=== PATIENT | male | born 1985 | race Caucasian/White ===

== ENCOUNTER 2017-05-06 11:58 | Emergency (ER) | payer BC, SELFPAY ==
[2017-05-06 11:59] VITALS: BP 150/89; PULSE 108; RESP 18; TEMP 37; O2SAT 95; BMI 32.1
--- NOTE | 2017-05-06 12:18 | XR_ITS ---
XR chest 2V Ordering Physician: Yolis Dominguez Patient Age: 31 years: Male HISTORY: ITS.REASON: COUGH congestion with no significant findings. Small calcified right hilar node COMPARISON :October 06, 2007 and more recent May 11, 2015 chest x-ray. FINDINGS No acute findings. No pneumonia. No pneumothorax. No pleural effusion. Again see the generous left merle with calcified nodes at the left infrahilar region accounting for the fullness here. This is long-standing and is been seen back to 2007. With this there is also a calcified granuloma projected over the anterior fifth rib. This is stable benign feature as well. . (& Also seen on CT abdomen from February 2017) Heart & mediastinal structures stable and unremarkable. The right merle is stable. Right lung clear Old left clavicular fracture. Ribs T-spine stable. Unremarkable. IMPRESSION: Stable chest. Nothing definitely acute. No pneumonia evident . Prominent left merle again noted and stable. Reflects old calcified granulomatous lymph nodes.. Associated stable calcified granuloma towards left lung base.
--- NOTE | 2017-05-06 12:18 | HMH.EDUTC ---
[facility] [place] Clinical Impression: Upper respiratory infection Disposition: Home, Self-Care Condition on Discharge: Good Instructions: Sinusitis, Sinus Headache, DI for Sinusitis Additional Instructions: Start antibiotic. Sinus infections may take 2-3 days to notice much improvement so be sure to use conservative measures as discussed for symptoms Flonase 2 spray in each nostril daily to help with nasal congestion, sinus an ear pressure/inflammation Lots of Fluids Sleep elevated Humidifer/vaporizer Prescriptions: Clarithromycin [Biaxin 500mg Tablet] 500 mg PO Q12H #14 tab predniSONE [Prednisone 20mg Tab] 20 mg PO BID #10 tab Promethazine/Dextromethorphan [Promethazine-Dm Syrup] 5 ml PO Q4H PRN #200 syrup PRN Reason: Cough Referrals: Neo David APRN [Primary Care Provider] - Forms: Work/School Release Time of Disposition: 13:08 Medical Decision Making - Medical Records Medical records reviewed: Yes: I reviewed the patient's medical records. Vital Signs: 05/06/17 11:59 Temperature 98.6 F Temperature Source Oral Pulse Rate [Left Brachial] 108 H Respiratory Rate 18 Blood Pressure [Right Arm] 150/89 Blood Pressure Mean [Right Arm] 109 Blood Pressure Source [Right Arm] Automatic Cuff Blood Pressure Position [Right Arm] Sitting 02 Sat by Pulse Oximetry 95 Oxygen Delivery Method Room Air - Lab Data Lab Results 05/06/17 12:18: Influenza Type A Ag Negative, Influenza Type B Ag Negative, Strep Scn Rapid Clinic Negative Orders (Tests/Meds): ED MEDICATIONS Discontinued Medications Generic Name Dose Route Start Last Admin Trade Name Freq PRN Reason Stop Dose Admin Methylprednisolone Sodium Succinate 125 mg 05/06/17 12:45 05/06/17 12:45 Solu-Medrol 125mg/2ml Vial IM 05/06/17 12:46 125 mg ONCE ONE Administration ORDERS Category Date Time Status XR chest 2V Stat Exams 05/06/17 12:18 Taken Strep Screen Confirmation Stat Micro 05/06/17 12:18 Received - Radiology Data #1 Image(s): Chest Image Reviewed: Yes I reviewed the patient's radiology image w/the ED provider Preliminary Findings: No Infiltrates Seen (Old granulomas noted no acute findings) - David Inquiry Pt receiving controlled substance: No David was queried for this patient: No [facility] [place] HPI - General Stated complaint: head cold Mode of Arrival: Ambulatory Source of Information: Patient Limitations: No Limitations Description of Symptoms (Recalled from Triage Doc. by RN): PT C/O PRODUCTIVE COUGH, SORE THROAT, FEVER HEENT Symptoms (Recalled from RN notes): No Resp Symptoms (Recalled from RN notes): Yes (PRODUCTIVE COUGH) Skin Symptoms (Recalled from RN notes): No MS Symptoms (Recalled from RN notes): No Functional Status (Recalled from RN notes): NA - History of Present Illness Provider Complaint: Patient state that he has been having sinus pain and pressure, cough, drainage, head and chest congestion States that he has been sick for over a week now and has not got any better. States that when he lays down he can feel drainage running down the back of his neck States that he doesn't think he has had a fever but not sure. State that over all he just does not feel well - Related Data Previous Rx's Medication Instructions Recorded Clarithromycin [Biaxin 500mg 500 mg PO Q12H #14 tab 05/06/17 Tablet] Promethazine/Dextromethorphan 5 ml PO Q4H PRN #200 syrup 05/06/17 [Promethazine-Dm Syrup] predniSONE [Prednisone 20mg 20 mg PO BID #10 tab 05/06/17 Tab] Allergies Allergy/AdvReac Type Severity Reaction Status Date / Time penicillin G [PENICILLIN G] Allergy Mild Verified 05/06/17 12:17 Sulfa (Sulfonamide Allergy Mild Verified 05/06/17 12:16 Antibiotics) [SULFA (SULFONAMIDE ANTIBIOTICS)] - Worker's Comp Is this a Worker's Comp case?: No [facility] History I have reviewed the patient's past medical history: Yes Medical History: Denies:: Cancer, Diabetes
--- NOTE | 2017-05-06 12:21 | ED_ITS ---
[facility] – [place] Disposition Clinical Impression: Upper respiratory infection Disposition: Home, Self-Care Condition on Discharge: Good Instructions: Sinusitis, Sinus Headache, DI for Sinusitis Additional Instructions: Start antibiotic. Sinus infections may take 2-3 days to notice much improvement so be sure to use conservative measures as discussed for symptoms Flonase 2 spray in each nostril daily to help with nasal congestion, sinus an ear pressure/inflammation Lots of Fluids Sleep elevated Humidifer/vaporizer Prescriptions: Clarithromycin [Biaxin 500mg Tablet] 500 mg PO Q12H #14 tab predniSONE [Prednisone 20mg Tab] 20 mg PO BID #10 tab Promethazine/Dextromethorphan [Promethazine-Dm Syrup] 5 ml PO Q4H PRN #200 syrup PRN Reason: Cough Referrals: Neo David APRN [Primary Care Provider] - Forms: Work/School Release Time of Disposition: 13:08 Medical Decision Making - Medical Records Medical records reviewed: Yes: I reviewed the patient's medical records. Vital Signs: 05/06/17 11:59 Temperature 98.6 F Temperature Source Oral Pulse Rate [Left Brachial] 108 H Respiratory Rate 18 Blood Pressure [Right Arm] 150/89 Blood Pressure Mean [Right Arm] 109 Blood Pressure Source [Right Arm] Automatic Cuff Blood Pressure Position [Right Arm] Sitting 02 Sat by Pulse Oximetry 95 Oxygen Delivery Method Room Air - Lab Data Lab Results 05/06/17 12:18: Influenza Type A Ag Negative, Influenza Type B Ag Negative, Strep Scn Rapid Clinic Negative Orders (Tests/Meds): ED MEDICATIONS Discontinued Medications Generic Name Dose Route Start Last Admin Trade Name Freq PRN Reason Stop Dose Admin Methylprednisolone Sodium Succinate 125 mg 05/06/17 12:45 05/06/17 12:45 Solu-Medrol 125mg/2ml Vial IM 05/06/17 12:46 125 mg ONCE ONE Administration ORDERS Category Date Time Status XR chest 2V Stat Exams 05/06/17 12:18 Taken Strep Screen Confirmation Stat Micro 05/06/17 12:18 Received - Radiology Data #1 Image(s): Chest Image Reviewed: Yes I reviewed the patient's radiology image w/the ED provider Preliminary Findings: No Infiltrates Seen (Old granulomas noted no acute findings) - David Inquiry Pt receiving controlled substance: No David was queried for this patient: No [facility] [place] HPI - General Stated complaint: head cold Mode of Arrival: Ambulatory Source of Information: Patient Limitations: No Limitations Description of Symptoms (Recalled from Triage Doc. by RN): PT C/O PRODUCTIVE COUGH, SORE THROAT, FEVER HEENT Symptoms (Recalled from RN notes): No Resp Symptoms (Recalled from RN notes): Yes (PRODUCTIVE COUGH) Skin Symptoms (Recalled from RN notes): No MS Symptoms (Recalled from RN notes): No Functional Status (Recalled from RN notes): NA - History of Present Illness Provider Complaint: Patient state that he has been having sinus pain and pressure, cough, drainage, head and chest congestion States that he has been sick for over a week now and has not got any better. States that when he lays down he can feel drainage running down the back of his neck States that he doesn 't think he has had a fever but not sure. State that over all he just does not feel well - Related Data Previous Rx's Medication Instructions Recorded Clarithromycin [Biaxin 50
[2017-05-06 12:32] LABS: UTC Influenza A Antigen Negative (Negative); UTC Influenza B Antigen Negative (Negative); UTC Strep Screen (Rapid) Negative (Negative)
[2017-05-06 13:29] VITALS: BP 150/78; PULSE 98; RESP 20; TEMP 36.9; O2SAT 98
== END 2017-05-06 13:31 | disposition home or self-care (01) ==
PROVIDERS: Emergency Provider Nurse Practitioner; Family Provider Emergency Medicine; PCP Nurse Practitioner Family
DX: J06.9 Acute upper respiratory infection, unspecified (principal); F17.210 Nicotine dependence, cigarettes, uncomplicated; Z88.0 Allergy status to penicillin; Z88.2 Allergy status to sulfonamides
CPT/HCPCS: 71046; 87804; 87880; 96372; 99202

== ENCOUNTER → 2017-10-17 14:51 | Outpatient (REF) | payer BC, SELFPAY ==
[2017-10-17 18:42] LABS: Amphetamine/Metha Screen,Urine Negative ng/mL (<1000); Barbiturates Screen,Urine Negative ng/mL (<200); Benzodiazepines Screen,Urine Negative ng/mL (<200); Cannabinoid Screen,Urine Negative ng/mL (<50); Cocaine Screen,Urine Negative ng/mL (<300); Methadone Screen,Urine Negative ng/mL (<300); Opiate Screen,Urine Negative ng/mL (<300); Phencyclidine Screen,Urine Negative ng/mL (<25)
== END ==
LOC: LAB 14:51
PROVIDERS: Visit Provider Nurse Practitioner Family
DX: F90.2 Attention-deficit hyperactivity disorder, combined type (principal)
CPT/HCPCS: 80305

== ENCOUNTER → 2018-03-12 16:40 | Outpatient (CLI) | payer BC, SELFPAY | PROVIDERS: PCP Nurse Practitioner Family; Visit Provider Nurse Practitioner Family | DX: R06.83 Snoring (principal) | CPT/HCPCS: 95806 ==

== ENCOUNTER → 2018-09-27 15:10 | Outpatient (CLI) | payer BC, SELFPAY ==
--- NOTE | 2018-09-27 15:15 | XR_ITS ---
EXAM: XR thoracic spine 3V HISTORY: Back pain ITS.REASON: pain Comparison: None FINDINGS: Normal alignment. No fracture or dislocation. No lytic or blastic change. No significant degenerative change. The disc spaces are preserved. Minimal upper thoracic curvature convex left IMPRESSION: No acute finding Minimal upper thoracic curvature convex left
--- NOTE | 2018-09-27 15:15 | XR_ITS ---
EXAM: XR cervical spine 3V HISTORY: Neck pain ITS.REASON: pain ORDERING PHYSICIAN: Chantal Delgado APRN PATIENT AGE: 33 years COMPARISON: None FINDINGS: Normal alignment. No fracture or dislocation. No lytic or blastic change. No significant degenerative change. The disc spaces are preserved. No foraminal narrowing. No cervical ribs or prevertebral soft tissue swelling. IMPRESSION: Negative cervical spine
== END ==
PROVIDERS: PCP Nurse Practitioner Family; Visit Provider Nurse Practitioner Family
DX: M54.2 Cervicalgia (principal); M54.6 Pain in thoracic spine
CPT/HCPCS: 72040; 72072

== ENCOUNTER → 2018-09-29 06:47 | Outpatient (CLI) | payer BC, SELFPAY ==
[2018-09-29 07:32] LABS: Alanine Aminotransferase 50 U/L (12-78); Albumin Level 3.8 gm/dL (3.4-5.0); Alkaline Phosphatase 139 U/L (46-116); Anion Gap 12.6 mEq/L (5-15); Aspartate Amino Transferase 18 U/L (15-37); Blood Urea Nitrogen 12 mg/dL (7-18); C-Reactive Protein < 0.2 mg/L (0.0-0.9); Calcium 8.8 mg/dL (8.5-10.1); Carbon Dioxide 30 mmol/L (21.0-32.0); Chloride 103 mmol/L (98-107); Chol/HDL Ratio 5.7 (1-3.5); Cholesterol 176 mg/dL (140-200); Creatinine,Serum 1.07 mg/dL (0.70-1.30); Estimated Glomerular Filt Rate 79 ml/min (>60); GFR (African American) 96 ML/MIN (>60); Globulin 3.8 gm/dl (1.3-3.2); Glucose 95 mg/dL (74-106); HDL Cholesterol 31 mg/dL (27-67); LDL Cholesterol 112 mg/dL (0-130); Potassium 3.6 mmoL/L (3.5-5.1); Sodium 142 mmol/L (136-145); Total Protein,Serum 7.6 gm/dL (6.4-8.2); Triglycerides 166 mg/dL (30-200); VLDL Cholesterol 33 mg/dL (0-40)
[2018-09-29 07:43] LABS: Erythrocyte Sedimentation Rate 3 mm/hr (0-15)
[2018-10-01 03:15] LABS: RA Latex Turbid. <10.0 IU/mL (0.0-13.9)
[2018-10-01 14:10] LABS: Anti-Centromere B Antibodies <0.2 AI (0.0-0.9); Anti-Jo-1 <0.2 AI (0.0-0.9); Anti-Smith Antibody <0.2 AI (0.0-0.9); Antichromatin Antibodies 0.2 AI (0.0-0.9); Antiscleroderma-70 Antibodies <0.2 AI (0.0-0.9); RNP Antibodies 0.2 AI (0.0-0.9); Sjogren's Anti-SS-A <0.2 AI (0.0-0.9); Sjogren's Anti-SS-B 2.3 AI (0.0-0.9)
[2018-10-03 06:23] LABS: Anti-Cyclic Citrullinated Pept 5 units (0-19); Anti-DNA (DS) Ab Qn <1 IU/mL (0-9)
== END ==
PROVIDERS: PCP Nurse Practitioner Family; Visit Provider Nurse Practitioner Family
DX: R53.83 Other fatigue (principal); M25.50 Pain in unspecified joint
CPT/HCPCS: 80053; 80061; 85651; 86140; 86200; 86225; 86235; 86431

== ENCOUNTER → 2020-02-27 18:34 | Outpatient (CLI) | payer BC, SELFPAY ==
[2020-02-27 20:01] LABS: Basophils # 0.1 K/mm3 (0-0.2); Basophils % 0.8 % (0.1-2.0); Eosinophils # 0.4 K/mm3 (0.0-0.4); Eosinophils % 3.9 % (0.1-12.0); Lymphocytes # 3.3 K/mm3 (0.7-4.5); Lymphocytes % 29.3 % (10-50); Mean Corpuscular HGB Conc 32.8 g/dL (31.8-35.4); Mean Corpuscular Hemoglobin 32.1 pg (27.0-31.2); Mean Platelet Volume 9.8 fl (7.4-10.4); Monocytes # 0.7 K/mm3 (0.1-1.0); Monocytes % 6.3 % (1.7-9.3); Neutrophils # 6.8 K/mm3 (1.8-7.8); Neutrophils % 59.8 % (37.0-80.0); Platelet Count 348 K/mm3 (142-424); Red Blood Count 5.66 M/mm3 (4.60-6.20); Red Cell Distribution Width 13.5 % (11.5-17.5); White Blood Count 11.3 K/mm3 (4.8-10.8)
[2020-02-27 20:03] LABS: Hematocrit 55.4 % (42.0-52.0); Hemoglobin 18.2 g/dL (14.1-18.0)
[2020-02-27 20:07] LABS: Alanine Aminotransferase 42 U/L (12-78); Albumin Level 4.5 g/dl (3.5-5.0); Albumin/Globulin Ratio 1.5 (1.1-1.8); Alkaline Phosphatase 149 U/L (38-126); Anion Gap 14.5 mEq/L (5-15); Aspartate Amino Transferase 36 U/L (17-59); Bilirubin,Total 1.1 mg/dl (0.2-1.3); Blood Urea Nitrogen 15 mg/dl (9-20); Calcium 9.9 mg/dl (8.4-10.2); Carbon Dioxide 28 mmol/L (22.0-30.0); Chloride 102 mmol/L (98-107); Chol/HDL Ratio 5.5 (1-3.5); Cholesterol 192 mg/dl (140-200); Estimated Glomerular Filt Rate 85 ml/min (>60); GFR (African American) 103 ML/MIN (>60); Globulin 3.1 g/dL (1.3-3.2); Glucose 96 mg/dl (74-100); HDL Cholesterol 35 mg/dl (40-60); Potassium 4.5 mmoL/L (3.5-5.1); Sodium 140 mmol/L (136-145); Total Protein,Serum 7.6 g/dl (6.3-8.2); Triglycerides 182 mg/dl (30-150); VLDL Cholesterol 36 mg/dL (0-40)
[2020-02-27 20:18] LABS: Direct LDL Cholesterol 134.75 mg/dL (100-129)
[2020-02-27 20:25] LABS: Free T4 (Free Thyroxine) 1.17 ng/dl (0.78-2.19)
[2020-02-27 20:39] LABS: Thyroid Stimulating Hormone 1.19 uIU/mL (0.465-4.68)
[2020-03-07 21:48] LABS: 1,25 Dihydroxy Vitamin D 64 pg/mL (.); 1,25-Dihydroxy, Vitamin D-2 <10 pg/mL (.); 1,25-Dihydroxy, Vitamin D-3 62 pg/mL (.)
== END ==
PROVIDERS: Visit Provider Emergency Medicine
DX: R53.83 Other fatigue (principal); R07.89 Other chest pain; Z79.899 Other long term (current) drug therapy; D58.2 Other hemoglobinopathies
CPT/HCPCS: 80053; 80061; 82652; 84439; 84443; 85025

== ENCOUNTER 2020-04-20 12:29 | Emergency (ER) | payer BC, SELFPAY ==
[2020-04-20 12:29] VITALS: BP 121/78; PULSE 87; RESP 16; TEMP 37.1; O2SAT 98; BMI 32.7
[2020-04-20 12:59] VITALS: BP 153/78; PULSE 76; RESP 20; O2SAT 98
--- NOTE | 2020-04-20 13:00 | CT_ITS ---
PROCEDURE: CT CHEST W CON CLINCAL INDICATION: right side pain Right-sided rib pain, chest pain COMPARISON: CT CT ABDOMEN PELVIS W CON from 04/20/2020 TECHNIQUE: IV Contrast: 75ml Isovue 370 Axial images obtained with sagittal and coronal reformats. All CT scans at the facility use one or more dose reduction, viz: automated exposure control, ma/kV adjustment per patient size (including targeted exams where dose is matched to indication, i.e. head), or iterative reconstruction technique. FINDINGS: No mediastinal or hilar mass or adenopathy. No evidence of aortic aneurysm. Calcified nodule is present in the left lower lobe with multiple small calcified satellite nodules. No lobar consolidation or collapse is evident. No effusions or infiltrates. The gallbladder, adrenal glands, pancreas, have an unremarkable appearance. There is splenomegaly at 15 cm. There is scattered small periportal and mesenteric lymph nodes are present. There is a subtle 6 mm hypodensity in the left hepatic lobe series 5, image 19 nonspecific too small to categorize. Nonobstructing stone is present in the mid polar region of the right kidney measuring 3 mm. No ureteral calculi. No hydronephrosis. No evidence of appendicitis. No intestinal obstruction or free air. Scattered small nodes are present stones No acute bony findings in the chest or abdomen. IMPRESSION: 1. No acute finding of the chest. 2. Old granulomatous disease. 3. Nonobstructing right nephrolithiasis. 4. No definite acute finding of the abdomen 5. 6 mm hypodensity left hepatic lobe too small to categorize. 6. Scattered small nodes are present in the periportal region and in the mesenteries nonspecific. Dictated by: Zain Stevens MD 04/20/2020 14:33 Zain Stevens MD in [place] 04/20/2020 14:33
[2020-04-20 13:08] LABS: Basophils # 0.1 K/mm3 (0-0.2); Basophils % 0.7 % (0.1-2.0); Eosinophils # 0.6 K/mm3 (0.0-0.4); Eosinophils % 5.7 % (0.1-12.0); Hematocrit 52.3 % (42.0-52.0); Hemoglobin 17.4 g/dL (14.1-18.0); Lymphocytes # 2.7 K/mm3 (0.7-4.5); Lymphocytes % 27.8 % (10-50); Mean Corpuscular HGB Conc 33.3 g/dL (31.8-35.4); Mean Corpuscular Hemoglobin 32.2 pg (27.0-31.2); Mean Corpuscular Volume 96.8 fl (80-94); Mean Platelet Volume 8.3 fl (7.4-10.4); Monocytes # 0.5 K/mm3 (0.1-1.0); Monocytes % 4.8 % (1.7-9.3); Neutrophils # 5.8 K/mm3 (1.8-7.8); Platelet Count 320 K/mm3 (142-424); Red Blood Count 5.41 M/mm3 (4.60-6.20); Red Cell Distribution Width 13.2 % (11.5-17.5); White Blood Count 9.5 K/mm3 (4.8-10.8)
--- NOTE | 2020-04-20 13:10 | HMH.EDGENADL ---
ED Disposition Clinical Impression: Flank pain, acute Disposition: Home, Self-Care Condition on Discharge: Good Instructions: DI for Acute Pain -- Adult Additional Instructions: pcp for follow up Referrals: Jasen Rae MD [Primary Care Provider] - - Critical Care Critical Care Time: No Attestation: On 04/20/20, the high probability of a clinically significant, sudden or life threatening deterioration of the following system(s) required my full and direct attention, intervention and personal management. The time I documented below is in addition to time spent performing reported procedures but includes the following listed in this critical care notation. Medical Decision Making - Medical Records Medical records reviewed: Yes: I reviewed the patient's medical records. - David Inquiry Pt receiving controlled substance: No Vital Signs: 04/20/20 12:29 04/20/20 12:59 04/20/20 14:22 Temperature 98.8 F Temperature Source Oral Pulse Rate [Right] 87 76 84 Respiratory Rate 16 20 16 Blood Pressure [Right Arm] 121/78 153/78 H 141/84 H Blood Pressure Mean [Right Arm] 92 103 103 Blood Pressure Source [Right Arm] Automatic Cuff Automatic Cuff Automatic Cuff Blood Pressure Position [Right Arm] Sitting Supine Sitting 02 Sat by Pulse Oximetry 98 98 98 Oxygen Delivery Method Room Air Room Air Room Air - Lab Data Lab results reviewed: Yes: I reviewed the patient's lab results. Lab Results 04/20/20 12:48: WBC 9.5, RBC 5.41, Hgb 17.4, Hct 52.3 H, MCV 96.8 H, MCH 32.2 H, MCHC 33.3, RDW 13.2, Plt Count 320, MPV 8.3, Neut % (Auto) 61.0, Lymph % (Auto) 27.8, Mcpherson % (Auto) 4.8, Eos % (Auto) 5.7, Baso % (Auto) 0.7, Neut # (Auto) 5.8, Lymph # (Auto) 2.7, Mcpherson # (Auto) 0.5, Eos # (Auto) 0.6 H, Baso # (Auto) 0.1 04/20/20 12:48: Sodium 138, Potassium 3.9, Chloride 102, Carbon Dioxide 28, Anion Gap 11.9, BUN 10, Creatinine 0.80, Estimated Creat Clear 240, Estimated GFR 110, Est GFR ( Amer) 133, Glucose 152 H, Calcium 9.5, Total Bilirubin 0.9, AST 46, ALT 45, Alkaline Phosphatase 127 H, Total Protein 7.6, Albumin 4.2, Globulin 3.4 H, Albumin/Globulin Ratio 1.2 Result diagrams: 04/20/20 12:48 04/20/20 12:48 Orders (Tests/Meds): ED MEDICATIONS Discontinued Medications Generic Name Dose Route Start Last Admin Trade Name Davidq PRN Reason Stop Dose Admin Iopamidol 75 ml 04/20/20 13:47 04/20/20 13:56 Iopamidol-370 (76%);100ml Bottle IV 04/20/20 13:48 75 ml ONCE ONE Administration Ketorolac Tromethamine 30 mg 04/20/20 15:36 04/20/20 15:38 Ketorolac 30mg/Ml Vial IV 04/20/20 15:37 30 mg ONCE ONE Administration Methylprednisolone Sodium Succinate 125 mg 04/20/20 15:36 04/20/20 15:38 Methylprednisolone Sod Succ 125mg Vial IV 04/20/20 15:37 125 mg ONCE ONE Administration Sodium Chloride 10 ml 04/20/20 13:47 04/20/20 13:56 Sodium Chloride 0.9% 10ml Syr (Rad Only) IV 04/20/20 13:48 10 ml ONCE ONE Administration - CT Data CT Scan: Abdomen, Pelvis, Chest Time Received: 16:[address] Reviewed: Yes: I have viewed the radiologist's interpretation Preliminary Findings: Normal/NAD Medical Decision Narrative: may require costal block and mri to determine dx General Adult HPI - General Chief complaint: PAIN Stated complaint: right side pain Time Seen by Provider: 04/20/20 13:10 Mode of Arrival: Ambulatory Source of Information: Patient, Medical Record Limitations: No Limitations Description of Symptoms (Recalled from ER Triage Doc. by RN): Pt c/o right sided rib pain for the past couple of weeks - History of Present Illness HPI narrative: rt costal pain worse last few days with cough and movement - no rash or trauma Onset (ago): week(s) Location: chest Severity: moderate Associated symptoms: denies other symptoms Treatments prior to arrival: none - Related Data Home Medications Medication Instructions Recorded Confirmed buPROPion HCL [Wellbutri
[2020-04-20 13:12] LABS: Alanine Aminotransferase 45 U/L (12-78); Albumin Level 4.2 g/dl (3.5-5.0); Albumin/Globulin Ratio 1.2 (1.1-1.8); Alkaline Phosphatase 127 U/L (38-126); Anion Gap 11.9 mEq/L (5-15); Aspartate Amino Transferase 46 U/L (17-59); Bilirubin,Total 0.9 mg/dl (0.2-1.3); Blood Urea Nitrogen 10 mg/dl (9-20); Calcium 9.5 mg/dl (8.4-10.2); Carbon Dioxide 28 mmol/L (22.0-30.0); Chloride 102 mmol/L (98-107); Creatinine Clearance Estimated 240 mL/min (50-200); Estimated Glomerular Filt Rate 110 ml/min (>60); GFR (African American) 133 ML/MIN (>60); Globulin 3.4 g/dL (1.3-3.2); Glucose 152 mg/dl (74-100); Potassium 3.9 mmoL/L (3.5-5.1); Sodium 138 mmol/L (136-145); Total Protein,Serum 7.6 g/dl (6.3-8.2)
--- NOTE | 2020-04-20 14:00 | PC.NURSE ---
PT BACK FROM CT
[2020-04-20 14:22] VITALS: BP 141/84; PULSE 84; RESP 16; O2SAT 98
[2020-04-20 16:03] VITALS: BP 145/84; PULSE 84; RESP 16; TEMP 36.9; O2SAT 98
== END 2020-04-20 16:17 | disposition home or self-care (01) ==
PROVIDERS: Emergency Provider Emergency Medicine; PCP Emergency Medicine
DX: R10.31 Right lower quadrant pain (principal); F17.210 Nicotine dependence, cigarettes, uncomplicated; Z88.0 Allergy status to penicillin; Z88.2 Allergy status to sulfonamides
CPT/HCPCS: 71260; 74177; 80053; 85025; 96374; 96375; 99283; Q9967

== ENCOUNTER → 2020-06-15 14:45 | Outpatient (CLI) | payer BC, SELFPAY | PROVIDERS: PCP Emergency Medicine; Visit Provider Nurse Practitioner | DX: Z20.822 Contact with and (suspected) exposure to COVID-19 (principal) | CPT/HCPCS: U0003 ==

== ENCOUNTER 2020-07-21 19:08 | Outpatient (CLI) | payer BC, SELFPAY ==
[2020-07-21 19:21] VITALS: BMI 34.0
== END 2020-07-21 19:47 | disposition home or self-care (01) ==
LOC: UTC 19:10 → UTC.OUT 19:22
PROVIDERS: PCP Nurse Practitioner Family; Visit Provider Nurse Practitioner Family
DX: J06.9 Acute upper respiratory infection, unspecified (principal)
CPT/HCPCS: 96372

== ENCOUNTER → 2020-11-17 09:46 | Outpatient (CLI) | payer BC, SELFPAY ==
[2020-11-17 10:15] LABS: Influenza A, PCR Not Detected (NotDetected); Influenza B, PCR Not Detected (NotDetected)
[2020-11-17 11:32] LABS: Coronavirus 19, PCR Detected (NotDetected)
== END ==
PROVIDERS: PCP Emergency Medicine; Visit Provider Nurse Practitioner
DX: Z11.52 Encounter for screening for COVID-19 (principal); U07.1 COVID-19
CPT/HCPCS: U0003

== ENCOUNTER → 2021-03-18 15:56 | Outpatient (CLI) | payer BC, SELFPAY ==
[2021-03-18 17:19] LABS: C-Reactive Protein 5.2 mg/L (0-4)
[2021-03-21 15:31] LABS: Anti-Centromere B Antibodies <0.2 AI (0.0-0.9); Anti-DNA (DS) Ab Qn 1 IU/mL (0-9); Anti-Jo-1 <0.2 AI (0.0-0.9); Antichromatin Antibodies <0.2 AI (0.0-0.9); Antiscleroderma-70 Antibodies <0.2 AI (0.0-0.9); RNP Antibodies 0.3 AI (0.0-0.9); Sjogren's Anti-SS-A <0.2 AI (0.0-0.9); Sjogren's Anti-SS-B 2.3 AI (0.0-0.9)
[2021-03-23 22:39] LABS: Aspergillus flavus Negative (Neg:<1:1); Aspergillus fumigatus Negative (Neg:<1:1); Aspergillus niger Negative (Neg:<1:1); Blastomyces Antibody Negative (Neg:<1:1)
[2021-05-14 20:26] LABS: Anti-Centromere B Abs Charge YES; Anti-DNA (DS) Ab Charge YES; Anti-Jo-1 Charge YES; Antichromatin Abs Charge YES; Antinuclear Antibodies (ANA) POSITIVE; Antiscleroderma-70 Abs Charge YES; RNP Antibodies Charge YES; Sjogren's Anti-SS-A Ab Charge YES; Sjogren's Anti-SS-B Ab Charge YES; Smith Antibodies Charge YES
== END ==
LOC: LAB.DROPOF 15:56 → LAB 16:00
PROVIDERS: Visit Provider Internal Medicine Pulmonary Disease
DX: R06.00 Dyspnea, unspecified (principal); J84.9 Interstitial pulmonary disease, unspecified; J84.10 Pulmonary fibrosis, unspecified
CPT/HCPCS: 86038; 86140; 86225; 86235; 86606; 86612

== ENCOUNTER → 2021-07-12 18:15 | Outpatient (CLI) | payer OTHER, SELFPAY ==
--- NOTE | 2021-07-12 | XR_ITS ---
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 TECHNIQUE: Imaging protocol: XR of the thoracic spine. Views: 2 views. COMPARISON: CR XR LUMBAR SPINE 2-3V 07/12/2021 6:44 PM FINDINGS: Bones/joints: No acute fracture or malalignment. Soft tissues: Calcified mediastinal lymph nodes, compatible with chronic sequelae of prior granulomatous disease. IMPRESSION: 1. No acute osseous abnormality in the thoracic spine. 2. No evidence of ankylosing spondylitis.
--- NOTE | 2021-07-12 | XR_ITS ---
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 Views: 2 or more views. COMPARISON: CR SHOULDCMRT XR shoulder RT min 2V 02/06/2018 7:58 PM FINDINGS: Bones/joints: No acute fracture or malalignment. Soft tissues: Unremarkable. IMPRESSION: No acute osseous abnormality in the right shoulder.
--- NOTE | 2021-07-12 | XR_ITS ---
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 Views: 2 or more views. COMPARISON: CR CLAVL CLAVICLE-LT 04/01/2016 2:39 PM FINDINGS: Bones/joints: No acute fracture or malalignment. Chronic fracture deformity in the mid left clavicle. Mild acromioclavicular joint space narrowing. Lungs: Calcified pulmonary granulomata noted in the left lung, compatible with chronic sequelae of prior granulomatous disease. Soft tissues: Normal. IMPRESSION: 1. No acute osseous abnormality in the left shoulder. 2. Mild left acromioclavicular joint space narrowing.
--- NOTE | 2021-07-12 | XR_ITS ---
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 Views: 4 or 5 views. COMPARISON: XR SACROILIAC JOINT BI MIN 3V 07/12/2021 6:39 PM FINDINGS: Bones/joints: Standard lumbosacral anatomy with 5 [id number] lumbar type vertebral bodies. No acute fracture or malalignment. No evidence of pars defects. Soft tissues: Unremarkable. IMPRESSION: 1. No acute osseous abnormality in the lumbar spine. 2. No evidence of ankylosing spondylitis.
--- NOTE | 2021-07-12 18:35 | XR_ITS ---
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 ; Additional info: Auto immune work up TECHNIQUE: Imaging protocol: XR Bilateral XR of the sacroiliac joints. Views: 3 or more views. COMPARISON: CT ABDOMEN PELVIS W CON 04/20/2020 1:45 PM FINDINGS: Bones/joints: No acute fracture or malalignment. Pubic symphysis and bilateral sacroiliac joints are congruent. No significant sacroiliac joint space narrowing or evidence of osseous fusion. Soft tissues: Normal. IMPRESSION: 1. No acute osseous abnormality in the pelvis. 2. No significant sacroiliac joint space narrowing or evidence of osseous fusion.
[2021-07-13 00:40] LABS: Basophils # 0.1 K/mm3 (0-0.2); Basophils % 1.2 % (0.1-2.0); Eosinophils # 0.4 K/mm3 (0.0-0.4); Eosinophils % 3.8 % (0.1-12.0); Hematocrit 52.3 % (42.0-52.0); Hemoglobin 16.7 g/dL (14.1-18.0); Lymphocytes # 3.3 K/mm3 (0.7-4.5); Lymphocytes % 28.1 % (10-50); Mean Corpuscular Hemoglobin 32.5 pg (27.0-31.2); Mean Corpuscular Volume 101.4 fl (80-94); Mean Platelet Volume 9.7 fl (7.4-10.4); Monocytes # 0.8 K/mm3 (0.1-1.0); Monocytes % 6.6 % (1.7-9.3); Neutrophils # 7.1 K/mm3 (1.8-7.8); Neutrophils % 60.3 % (37.0-80.0); Platelet Count 420 K/mm3 (142-424); Red Blood Count 5.16 M/mm3 (4.60-6.20); Red Cell Distribution Width 13.2 % (11.5-17.5); White Blood Count 11.7 K/mm3 (4.8-10.8)
[2021-07-13 00:56] LABS: Chloride 101 mmol/L (98-107); Potassium 4.1 mmoL/L (3.5-5.1); Sodium 137 mmol/L (136-145)
[2021-07-13 00:58] LABS: Alanine Aminotransferase 51 U/L (12-78); Aspartate Amino Transferase 40 U/L (17-59); Blood Urea Nitrogen 14 mg/dl (9-20); Estimated Glomerular Filt Rate 95 ml/min (>60); GFR (African American) 115 ML/MIN (>60)
[2021-07-13 00:59] LABS: Albumin Level 4.3 g/dl (3.5-5.0); Albumin/Globulin Ratio 1.5 (1.1-1.8); Alkaline Phosphatase 143 U/L (38-126); Anion Gap 16.1 mEq/L (5-15); Bilirubin,Total 0.9 mg/dl (0.2-1.3); Calcium 8.5 mg/dl (8.4-10.2); Carbon Dioxide 24 mmol/L (22.0-30.0); Globulin 2.8 g/dL (1.3-3.2); Glucose 67 mg/dl (74-100); Total Protein,Serum 7.1 g/dl (6.3-8.2)
[2021-07-13 01:05] LABS: C-Reactive Protein 10.8 mg/L (0-4)
[2021-07-13 01:16] LABS: Erythrocyte Sedimentation Rate 7 mm/hr (0-15); Free T4 (Free Thyroxine) 1.34 ng/dl (0.78-2.19)
[2021-07-13 01:30] LABS: Thyroid Stimulating Hormone 2.33 uIU/mL (0.465-4.68)
[2021-07-14 10:13] LABS: Hep A Ab, IgM Negative (Negative); Hepatitis B Core Antibody IgM Negative (Negative); Hepatitis B Surface Antigen Negative (Negative); Hepatitis C Antibody 0.1 s/co ratio (0.0-0.9)
[2021-07-14 12:19] LABS: RA Latex Turbid. 10.5 IU/mL (<14.0)
[2021-07-14 15:14] LABS: Anti-Centromere B Antibodies <0.2 AI (0.0-0.9); Anti-DNA (DS) Ab Qn 1 IU/mL (0-9); Anti-Jo-1 <0.2 AI (0.0-0.9); Anti-Smith Antibody <0.2 AI (0.0-0.9); Antichromatin Antibodies <0.2 AI (0.0-0.9); Antiscleroderma-70 Antibodies <0.2 AI (0.0-0.9); RNP Antibodies 0.2 AI (0.0-0.9); Sjogren's Anti-SS-A <0.2 AI (0.0-0.9); Sjogren's Anti-SS-B 2.3 AI (0.0-0.9)
[2021-07-15 00:07] LABS: Anti-Cyclic Citrullinated Pept 5 units (0-19)
[2021-07-15 10:21] LABS: Antinuclear Antibodies, IFA Negative (.)
[2021-07-19 14:13] LABS: HLA-B27 Negative (.)
== END ==
PROVIDERS: PCP Emergency Medicine; Visit Provider Internal Medicine Rheumatology
DX: H20.9 Unspecified iridocyclitis (principal); M25.50 Pain in unspecified joint; R76.8 Other specified abnormal immunological findings in serum; E66.9 Obesity, unspecified; Z68.33 Body mass index [BMI] 33.0-33.9, adult; Z91.15 Patient's noncompliance with renal dialysis
CPT/HCPCS: 72070; 72100; 72202; 73030; 80053; 80074; 84439; 84443; 85025; 85651; 86038; 86140; 86200; 86225; 86235; 86431; 86812

== ENCOUNTER 2021-09-19 20:12 | Emergency (ER) | payer OTHER, SELFPAY ==
[2021-09-19 20:12] VITALS: BP 157/84; PULSE 84; RESP 16; TEMP 36.9; O2SAT 98; BMI 32.9
[2021-09-19 20:20] VITALS: BMI 24.0
--- NOTE | 2021-09-19 20:21 | CT_ITS ---
PROCEDURE INFORMATION: Exam: CTA Chest With Contrast Exam date and time: 09/19/2021 9:12 PM Age: 36 years old Clinical indication: Pain; Right-sided; Additional info: Dyspnea, posterior trunk pain TECHNIQUE: Imaging protocol: Computed tomographic angiography of the chest with contrast. 3D rendering (Not supervised by radiologist): MIP and/or 3D reconstructed images were created by the technologist. Radiation optimization: All CT scans at this facility use at least one of these dose optimization techniques: automated exposure control; mA and/or kV adjustment per patient size (includes targeted exams where dose is matched to clinical indication); or iterative reconstruction. Contrast material: ISOVUE 370; Contrast volume: 70 ml; Contrast route: INTRAVENOUS (IV); COMPARISON: CT CHEST W CON 04/20/2020 1:45 PM FINDINGS: Pulmonary arteries: The pulmonary arteries enhance appropriately with no evidence of pulmonary embolism. Aorta: The aorta enhances appropriately without evidence of dissection or aneurysm. No mediastinal hematoma. Thyroid: The visualized thyroid gland demonstrates no gross abnormality. Lungs: Question mild bilateral bronchial wall thickening suspicious for a mild element of bronchitis or bronchial edema, with no evidence of bronchiectasis or bronchial occlusions. No gross pulmonary infiltrates or edema pattern. No pulmonary mass lesions are identified. Pleural spaces: No pleural effusion. No pneumothorax. Heart: Heart size normal. No pericardial effusion. Mediastinal space: The esophagus is largely contracted but demonstrates no gross abnormality. Lymph nodes: No supraclavicular or axillary adenopathy. No mediastinal or hilar adenopathy. Bones/joints: No acute osseous abnormalities are identified. Chronic fracture of the middle 3rd of the left clavicle grossly unchanged, with incomplete ossific union, suggesting chronic nonunion or fibrous union. Soft tissues: The soft tissues of the chest wall demonstrate no acute abnormality. IMPRESSION: 1. No evidence of pulmonary embolism or aortic dissection. 2. Question mild bronchial wall thickening bilaterally suggesting bronchitis or bronchial edema. No gross infiltrates. 3. 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
--- NOTE | 2021-09-19 20:21 | CT_ITS ---
PROCEDURE INFORMATION: Exam: CT Abdomen And Pelvis Without Contrast Exam date and time: 09/19/2021 9:07 PM Age: 36 years old Clinical indication: Abdominal pain; Other: Posterior RT trunk; Additional info: Dyspnea, posterior trunk pain TECHNIQUE: Imaging protocol: Computed tomography of the abdomen and pelvis without contrast. Radiation optimization: All CT scans at this facility use at least one of these dose optimization techniques: automated exposure control; mA and/or kV adjustment per patient size (includes targeted exams where dose is matched to clinical indication); or iterative reconstruction. COMPARISON: CT ABDOMEN PELVIS W CON 04/20/2020 1:45 PM FINDINGS: Lungs: Granulomatous calcifications in the left lower lobe. Lung bases are otherwise clear. Heart: Heart size normal. Mediastinal space: The visualized distal esophagus is largely contracted without gross abnormality. Liver: Normal contour. No mass lesions. No intrahepatic biliary ductal dilatation. Gallbladder and bile ducts: Normal. No calcified stones. No ductal dilation. Pancreas: Normal. No inflammatory changes or ductal dilation. Spleen: Splenomegaly measuring 15.2 cm. Granulomatous calcifications in the spleen. Adrenal glands: Normal. No adrenal mass. Kidneys and ureters: No acute abnormalities. No hydronephrosis or hydroureter. 3 mm nonobstructive right renal stone. No ureteral stones. Stomach and bowel: The stomach is unremarkable. The small bowel is nondilated with no gross abnormality. There is a moderate amount of stool distributed throughout the colon suggesting constipation. Appendix: The appendix is normal in caliber and demonstrates no evidence of appendicitis. Intraperitoneal space: No free fluid or air. Vasculature: No acute process. No abdominal aortic aneurysm. Lymph nodes: No adenopathy. Urinary bladder: Unremarkable as visualized. Reproductive: Unremarkable as visualized. Bones/joints: No acute osseous abnormalities. Moderate disc space narrowing with 3 mm retrolisthesis L5-S1. Soft tissues: Unremarkable. IMPRESSION: 1. There is a moderate amount of stool distributed throughout the colon suggesting constipation. 2. Splenomegaly. 3. Additional nonemergent findings detailed above.
[2021-09-19 20:30] VITALS: BP 140/77; PULSE 80; O2SAT 96
[2021-09-19 20:31] LABS: Microscopic, Urine URINE MICROSCOPIC (MICROSCOPIC)
[2021-09-19 20:33] LABS: Appearance,Urine CLEAR (Clear); Bilirubin,Urine Negative (Negative); Blood, Urine Negative (Negative); Color,Urine YELLOW (Yellow); Glucose,Urine (UA) Negative (Negative); Ketones,Urine Negative (Negative); Leukocyte Esterase,Urine TRACE (Negative); Nitrate,Urine Negative (Negative); Protein,Urine Negative (Negative); Specific Gravity, Urine 1.025 (1.005-1.030)
[2021-09-19 20:37] LABS: Basophils # 0.5 K/mm3 (0-0.2); Basophils % 3.8 % (0.1-2.0); Eosinophils # 0.6 K/mm3 (0.0-0.4); Eosinophils % 5.3 % (0.1-12.0); Hematocrit 49.9 % (42.0-52.0); Hemoglobin 16.7 g/dL (14.1-18.0); Lymphocytes # 3.4 K/mm3 (0.7-4.5); Lymphocytes % 28.1 % (10-50); Mean Corpuscular HGB Conc 33.4 g/dL (31.8-35.4); Mean Corpuscular Hemoglobin 32.1 pg (27.0-31.2); Mean Corpuscular Volume 96.3 fl (80-94); Mean Platelet Volume 8.3 fl (7.4-10.4); Monocytes # 0.9 K/mm3 (0.1-1.0); Monocytes % 7.7 % (1.7-9.3); Platelet Count 378 K/mm3 (142-424); Red Blood Count 5.19 M/mm3 (4.60-6.20); Red Cell Distribution Width 13.2 % (11.5-17.5); White Blood Count 11.9 K/mm3 (4.8-10.8)
[2021-09-19 20:40] LABS: Alanine Aminotransferase 42 U/L (12-78); Albumin Level 4.2 g/dl (3.5-5.0); Albumin/Globulin Ratio 1.3 (1.1-1.8); Alkaline Phosphatase 129 U/L (38-126); Amylase 80 U/L (30-110); Anion Gap 12.5 mEq/L (5-15); Aspartate Amino Transferase 42 U/L (17-59); Bilirubin,Total 0.7 mg/dl (0.2-1.3); Blood Urea Nitrogen 9 mg/dl (9-20); Carbon Dioxide 27 mmol/L (22.0-30.0); Chloride 101 mmol/L (98-107); Creatinine Clearance Estimated 166 mL/min (50-200); Estimated Glomerular Filt Rate 95 ml/min (>60); GFR (African American) 115 ML/MIN (>60); Globulin 3.3 g/dL (1.3-3.2); Glucose 117 mg/dl (74-100); Potassium 3.5 mmoL/L (3.5-5.1); Sodium 137 mmol/L (136-145); Total Protein,Serum 7.5 g/dl (6.3-8.2)
[2021-09-19 20:41] LABS: Lipase 69 U/L (23-300)
[2021-09-19 20:43] LABS: Bacteria,Urine Trace /lpf; Squamous Epithelial Cell,Urine Occasional #/hpf (0-5); WBC,Urine Occasional #/hpf (0-3)
[2021-09-19 20:46] LABS: C-Reactive Protein 7.2 mg/L (0-4)
[2021-09-19 21:03] LABS: Erythrocyte Sedimentation Rate 7 mm/hr (0-15)
--- NOTE | 2021-09-19 21:19 | HMH.EDNVD ---
ED Disposition Clinical Impression: Chest pain Qualifiers: Chest pain type: unspecified Qualified Code(s): R07.9 - Chest pain, unspecified Disposition: Home, Self-Care Condition on Discharge: Good Instructions: DI for Atypical Chest Pain Additional Instructions: call pcp for follow up Prescriptions: predniSONE [Prednisone 20mg Tab] 20 mg PO BID #10 tab Transmission Status: Pending to [facility] Referrals: Jasen Rae MD [Primary Care Provider] - - Critical Care Critical Care Time: No Attestation: On 09/19/21, the high probability of a clinically significant, sudden or life threatening deterioration of the following system(s) required my full and direct attention, intervention and personal management. The time I documented below is in addition to time spent performing reported procedures but includes the following listed in this critical care notation. Medical Decision Making - Medical Records Medical records reviewed: Yes: I reviewed the patient's medical records. - David Inquiry Pt receiving controlled substance: No Vital Signs: 09/19/21 20:12 09/19/21 20:30 09/19/21 21:22 Temperature 98.4 F Temperature Source Oral Pulse Rate 80 75 Pulse Rate [Left Radial] 84 Respiratory Rate 16 Blood Pressure 140/77 143/87 H Blood Pressure [Right Arm] 157/84 H Blood Pressure Mean [Right Arm] 108 Blood Pressure Position [Right Arm] Sitting 02 Sat by Pulse Oximetry 98 96 97 Oxygen Delivery Method Room Air Room Air Room Air - Lab Data Lab results reviewed: Yes: I reviewed the patient's lab results. Lab Results 09/19/21 20:24: WBC 11.9 H, RBC 5.19, Hgb 16.7, Hct 49.9, MCV 96.3 H, MCH 32.1 H, MCHC 33.4, RDW 13.2, Plt Count 378, MPV 8.3, Neut % (Auto) 59.0, Lymph % (Auto) 28.1, [place] % (Auto) 7.7, Eos % (Auto) 5.3, Baso % (Auto) 3.8 H, Neut # (Auto) 7.0, Lymph # (Auto) 3.4, [place] # (Auto) 0.9, Eos # (Auto) 0.6 H, Baso # (Auto) 0.5 H 09/19/21 20:24: Sodium 137, Potassium 3.5, Chloride 101, Carbon Dioxide 27, Anion Gap 12.5, BUN 9, Creatinine 0.90, Estimated Creat Clear 166, Estimated GFR 95, Est GFR ( Amer) 115, Glucose 117 H, Calcium 9.0, Total Bilirubin 0.7, AST 42, ALT 42, Alkaline Phosphatase 129 H, C-Reactive Protein 7.2 H, Total Protein 7.5, Albumin 4.2, Globulin 3.3 H, Albumin/Globulin Ratio 1.3 09/19/21 20:24: Urine Color Yellow, Urine Appearance Clear, Urine pH 5.0, Ur Specific [place] 1.025, Urine Protein Negative, Urine Glucose (UA) Negative, Urine Ketones Negative, Urine Blood Negative, Urine Nitrate Negative, Urine Bilirubin Negative, Urine Urobilinogen 2.0, Ur Leukocyte Esterase Trace, Urine RBC None, Urine WBC Occasional, Ur Squamous Epith Cells Occasional, Urine Bacteria Trace 09/19/21 20:24: ESR 7 09/19/21 20:24: Amylase 80, Lipase 69 Result diagrams: 09/19/21 20:24 09/19/21 20:24 Orders (Tests/Meds): ED MEDICATIONS Generic Name Dose Route Start Last Admin Trade Name Freq PRN Reason Stop Dose Admin Sodium Chloride 1,000 mls @ 999 mls/hr 09/19/21 22:00 09/19/21 22:37 Sod Chlor 0.9% 1000ml Bag IV 09/19/21 23:00 999 mls/hr .Q1H1M SHAMEKA Administration Discontinued Medications Generic Name Dose Route Start Last Admin Trade Name Freq PRN Reason Stop Dose Admin Hydromorphone HCl 1 mg 09/19/21 21:22 09/19/21 21:24 Hydromorphone 2mg/Ml Syringe IV 09/19/21 21:23 1 mg ONCE ONE Administration Hydromorphone HCl 2 mg 09/19/21 22:00 09/19/21 22:37 Hydromorphone 2mg/Ml Syringe IV 09/19/21 22:01 2 mg ONCE ONE Administration Sodium Chloride 1,000 mls @ 999 mls/hr 09/19/21 20:45 09/19/21 20:34 Sod Chlor 0.9% 1000ml Bag IV 09/19/21 21:45 999 mls/hr .Q1H1M SHAMEKA Administration Iopamidol 70 ml 09/19/21 22:08 09/19/21 22:10 Iopamidol-370 (76%);100ml Bottle IV 09/19/21 22:09 70 ml ONCE ONE Administration Ketorolac Tromethamine 30 mg 09/19/21 20:31 09/19/21 20:35 Ketorolac 30mg/Ml Vial IV 09/19/21 20
[2021-09-19 21:22] VITALS: BP 143/87; PULSE 75; O2SAT 97
--- NOTE | 2021-09-19 22:45 | PC.NURSE ---
ER speaking with pt at this time
[2021-09-19 23:16] VITALS: BP 113/59; PULSE 74; RESP 16; TEMP 36.8; O2SAT 94
== END 2021-09-19 23:18 | disposition home or self-care (01) ==
PROVIDERS: Emergency Provider Emergency Medicine; PCP Emergency Medicine
DX: R07.9 Chest pain, unspecified (principal); R06.09 Other forms of dyspnea; F33.1 Major depressive disorder, recurrent, moderate; Z72.0 Tobacco use; Z88.0 Allergy status to penicillin; Z88.2 Allergy status to sulfonamides
CPT/HCPCS: 71275; 74176; 80053; 81001; 82150; 83690; 85025; 85651; 86140; 96361; 96374; 96375; 96376; 99284; J2405; Q9967

== ENCOUNTER 2021-10-06 21:11 | Emergency (ER) | payer OTHER, SELFPAY ==
[2021-10-06 21:11] VITALS: BP 144/89; PULSE 82; RESP 16; TEMP 37; O2SAT 98; BMI 32.9
--- NOTE | 2021-10-06 21:24 | ECG_ITS ---
APPROVED REPORT Exam: Resting ECG HR:73 bpm ECG Measurements Heart Rate 73 AXES NJ 169 P 63 QRSd 91 QRS 69 QT 356 T 70 QTc 382 Conclusion SINUS RHYTHM NORMAL ECG UNCONFIRMED REPORT Electronically signed by : Tejas Cummings MD 10/07/2021 08:25:01
[2021-10-06 21:30] VITALS: BP 137/79; PULSE 79; O2SAT 95
--- NOTE | 2021-10-06 21:35 | PC.NURSE ---
Pt placed in gown and MD at bedside
[2021-10-06 21:46] LABS: Hematocrit 46.9 % (42.0-52.0); Hemoglobin 15.6 g/dL (14.1-18.0); Red Blood Count 4.74 M/mm3 (4.60-6.20); White Blood Count 11.1 K/mm3 (4.8-10.8)
[2021-10-06 21:47] LABS: Basophils # 0.3 K/mm3 (0-0.2); Basophils % 3.1 % (0.1-2.0); Eosinophils # 0.5 K/mm3 (0.0-0.4); Eosinophils % 4.4 % (0.1-12.0); Lymphocytes # 2.8 K/mm3 (0.7-4.5); Lymphocytes % 25.1 % (10-50); Mean Corpuscular HGB Conc 33.3 g/dL (31.8-35.4); Mean Corpuscular Hemoglobin 32.9 pg (27.0-31.2); Mean Platelet Volume 8.4 fl (7.4-10.4); Monocytes % 8.9 % (1.7-9.3); Neutrophils # 6.5 K/mm3 (1.8-7.8); Neutrophils % 58.5 % (37.0-80.0); Platelet Count 290 K/mm3 (142-424); Red Cell Distribution Width 13.4 % (11.5-17.5)
[2021-10-06 21:50] LABS: Alanine Aminotransferase 32 U/L (12-78); Albumin Level 3.9 g/dl (3.5-5.0); Albumin/Globulin Ratio 1.3 (1.1-1.8); Alkaline Phosphatase 129 U/L (38-126); Amylase 69 U/L (30-110); Anion Gap 9.6 mEq/L (5-15); Aspartate Amino Transferase 29 U/L (17-59); Bilirubin,Total 0.3 mg/dl (0.2-1.3); Blood Urea Nitrogen 8 mg/dl (9-20); Calcium 9.2 mg/dl (8.4-10.2); Carbon Dioxide 30 mmol/L (22.0-30.0); Chloride 102 mmol/L (98-107); Creatinine Clearance Estimated 231 mL/min (50-200); Estimated Glomerular Filt Rate 109 ml/min (>60); GFR (African American) 132 ML/MIN (>60); Globulin 3.1 g/dL (1.3-3.2); Glucose 105 mg/dl (74-100); Lipase 86 U/L (23-300); Potassium 3.6 mmoL/L (3.5-5.1); Sodium 138 mmol/L (136-145)
--- NOTE | 2021-10-06 22:06 | HMH.EDGENADL ---
ED Disposition Clinical Impression: Abdominal pain Qualifiers: Abdominal location: epigastric Qualified Code(s): R10.13 - Epigastric pain Disposition: Home, Self-Care Condition on Discharge: Good Instructions: DI for Acute Pain -- Adult Additional Instructions: use meds and see pcp for follow up Referrals: Jasen Rae MD [Primary Care Provider] - - Critical Care Critical Care Time: No Attestation: On 10/06/21, the high probability of a clinically significant, sudden or life threatening deterioration of the following system(s) required my full and direct attention, intervention and personal management. The time I documented below is in addition to time spent performing reported procedures but includes the following listed in this critical care notation. Medical Decision Making - Medical Records Medical records reviewed: Yes: I reviewed the patient's medical records. - David Inquiry Pt receiving controlled substance: No Vital Signs: 10/06/21 21:11 10/06/21 21:30 10/06/21 23:00 Temperature 98.6 F Temperature Source Oral Pulse Rate 79 72 Pulse Rate [Right] 82 Respiratory Rate 16 Blood Pressure 137/79 123/74 Blood Pressure [Right Arm] 144/89 H Blood Pressure Mean 101 81 Blood Pressure Mean [Right Arm] 107 Blood Pressure Source [Right Arm] Automatic Cuff Blood Pressure Position [Right Arm] Sitting 02 Sat by Pulse Oximetry 98 95 98 Oxygen Delivery Method Room Air 10/06/21 23:45 Temperature Temperature Source Pulse Rate 70 Pulse Rate [Right] Respiratory Rate 16 Blood Pressure 115/75 Blood Pressure [Right Arm] Blood Pressure Mean Blood Pressure Mean [Right Arm] Blood Pressure Source [Right Arm] Blood Pressure Position [Right Arm] 02 Sat by Pulse Oximetry 95 Oxygen Delivery Method - Lab Data Lab results reviewed: Yes: I reviewed the patient's lab results. Lab Results 10/06/21 21:35: WBC 11.1 H, RBC 4.74, Hgb 15.6, Hct 46.9, MCV 99.0 H, MCH 32.9 H, MCHC 33.3, RDW 13.4, Plt Count 290, MPV 8.4, Neut % (Auto) 58.5, Lymph % (Auto) 25.1, [place] % (Auto) 8.9, Eos % (Auto) 4.4, Baso % (Auto) 3.1 H, Neut # (Auto) 6.5, Lymph # (Auto) 2.8, [place] # (Auto) 1.0, Eos # (Auto) 0.5 H, Baso # (Auto) 0.3 H 10/06/21 21:35: Sodium 138, Potassium 3.6, Chloride 102, Carbon Dioxide 30, Anion Gap 9.6, BUN 8 L, Creatinine 0.80, Estimated Creat Clear 231, Estimated GFR 109, Est GFR ( Amer) 132, Glucose 105 H, Calcium 9.2, Total Bilirubin 0.3, AST 29, ALT 32, Alkaline Phosphatase 129 H, Troponin I < 0.01, Total Protein 7.0, Albumin 3.9, Globulin 3.1, Albumin/Globulin Ratio 1.3, Amylase 69, Lipase 86 Result diagrams: 10/06/21 21:35 10/06/21 21:35 Orders (Tests/Meds): ED MEDICATIONS Generic Name Dose Route Start Last Admin Trade Name Freq PRN Reason Stop Dose Admin Sodium Chloride 10 ml 10/06/21 21:39 10/06/21 21:44 Sodium Chloride 0.9% 10ml Flush Syringe IV 11/05/21 21:38 10 ml NEEDED PRN Administration Maintain IV Site Sodium Chloride 8 ml 10/06/21 21:41 10/06/21 21:44 Sodium Chloride 0.9% 10ml Vial IV 11/05/21 21:40 8 ml NEEDED PRN Administration dilute pepcid Discontinued Medications Generic Name Dose Route Start Last Admin Trade Name Freq PRN Reason Stop Dose Admin Belladonna Alkaloids 60 ml 10/06/21 22:48 10/06/21 22:49 Gi Cocktail 60ml Udc PO 10/06/21 22:49 60 ml ONCE ONE Administration Famotidine 20 mg 10/06/21 21:41 10/06/21 21:44 Famotidine 20mg/2ml Vial IV 10/06/21 21:42 20 mg ONCE ONE Administration Ketorolac Tromethamine 30 mg 10/06/21 23:41 10/06/21 23:42 Ketorolac 30mg/Ml Vial IV 10/06/21 23:42 30 mg ONCE ONE Administration Metoclopramide HCl 10 mg 10/06/21 21:41 10/06/21 21:44 Metoclopramide Hcl 10mg/2ml Vial IVP 10/06/21 21:42 10 mg ONCE ONE Administration ORDERS Category Date Time Status Troponin I Q3H Lab 10/07/21 00:45 Ordered Troponin I Q3H Lab
[2021-10-06 22:07] LABS: Troponin I < 0.01 ng/ml (0.00-0.034)
--- NOTE | 2021-10-06 22:45 | PC.NURSE ---
Updated pt on POC. No new needs
[2021-10-06 23:00] VITALS: BP 123/74; PULSE 72; O2SAT 98
--- NOTE | 2021-10-06 23:40 | PC.NURSE ---
Rounded on pt at this time, still c/o burning sensation in center of chest. Notified MD. AGUILAR for toradol given
[2021-10-06 23:45] VITALS: BP 115/75; PULSE 70; RESP 16; O2SAT 95
[2021-10-07 00:39] VITALS: BP 114/70; PULSE 72; RESP 16; TEMP 36.8; O2SAT 98
== END 2021-10-07 00:40 | disposition home or self-care (01) ==
PROVIDERS: Emergency Provider Emergency Medicine; PCP Emergency Medicine
DX: R10.13 Epigastric pain (principal); Z88.2 Allergy status to sulfonamides
CPT/HCPCS: 80053; 82150; 83690; 84484; 85025; 93005; 96374; 96375; 99284

== ENCOUNTER → 2021-10-07 08:28 | Outpatient (CLI) | payer OTHER, SELFPAY ==
--- NOTE | 2021-10-07 08:32 | US_ITS ---
FINAL REPORT CLINICAL HISTORY: flank pain FINDINGS: Sonographic images of the right upper quadrant were obtained. The pancreas is partially obscured.The liver has an unremarkable appearance. There is an echogenic nonshadowing focus along the gallbladder wall consistent with a polyp. There is no evidence of biliary ductal dilatation.The common duct measures 3 mm. Limited images of the right kidney are unremarkable. IMPRESSION: Gallbladder polyp. Reviewed, Interpreted and Dictated by Hao Levy III, MD Transcribed by Heidy Dhillon Authenticated and [facility]
== END ==
PROVIDERS: PCP Emergency Medicine; Visit Provider Emergency Medicine
DX: R10.9 Unspecified abdominal pain (principal)
CPT/HCPCS: 76705

== ENCOUNTER → 2021-10-15 12:09 | Outpatient (CLI) | payer OTHER, SELFPAY ==
--- NOTE | 2021-10-15 12:09 | NM_ITS ---
FINAL REPORT CLINICAL HISTORY: abnormal gallbaldder US 12:45PM 7.76 MCI TC CHOLETEC 2.6 MCG CCK NO PAIN WITH CCK FINDINGS: Sequential anterior projection images of the abdomen were obtained after the intravenous injection of 7.76 mCi technetium 99m Choletec. There is normal uptake of radiotracer by the liver. The bile ducts are visualized by 10 minutes. Gallbladder activity is seen by 15 minutes. Bowel activity is noted by 10 minutes. After 1 hour, 2.6 ?g of CCK was injected intravenously for calculation of gallbladder ejection fraction. The gallbladder ejection fraction is 88%, which is within normal limits. IMPRESSION: No evidence of cystic duct or bile duct obstruction. Normal gallbladder ejection fraction of 88%. Reviewed, Interpreted and Dictated by Hao Levy III, MD Transcribed by Verena Nuno Authenticated and [facility]
== END ==
PROVIDERS: PCP Emergency Medicine; Visit Provider Emergency Medicine
DX: R10.9 Unspecified abdominal pain (principal)
CPT/HCPCS: 78227; A9537; J2805

== ENCOUNTER → 2022-01-10 13:13 | Outpatient (CLI) | payer OTHER, SELFPAY ==
[2022-01-10 13:21] LABS: Influenza A, PCR Not Detected (NotDetected); Influenza B, PCR Not Detected (NotDetected)
[2022-01-10 13:46] VITALS: BMI 32.3
[2022-01-10 13:48] LABS: Coronavirus 19, PCR Detected (NotDetected)
== END ==
PROVIDERS: PCP Emergency Medicine; Visit Provider Emergency Medicine
DX: U07.1 COVID-19 (principal)
CPT/HCPCS: C9803; U0003; U0005

== ENCOUNTER → 2023-03-31 15:49 | Outpatient (CLI) | payer OTHER, SELFPAY ==
[2023-03-31 15:03] LABS: Basophils # 0.1 K/mm3 (0-0.2); Basophils % 0.5 % (0.1-2.0); Eosinophils # 0.4 K/mm3 (0.0-0.4); Eosinophils % 4.2 % (0.1-12.0); Hemoglobin 17.8 g/dL (14.1-18.0); Lymphocytes # 2.3 K/mm3 (0.7-4.5); Lymphocytes % 26.8 % (10-50); Mean Corpuscular HGB Conc 33.6 g/dL (31.8-35.4); Mean Corpuscular Hemoglobin 32.8 pg (27.0-31.2); Mean Corpuscular Volume 97.5 fl (80-94); Mean Platelet Volume 9.6 fl (7.4-10.4); Monocytes # 0.8 K/mm3 (0.1-1.0); Monocytes % 9.7 % (1.7-9.3); Neutrophils # 5.1 K/mm3 (1.8-7.8); Neutrophils % 58.7 % (37.0-80.0); Platelet Count 335 K/mm3 (142-424); Red Blood Count 5.43 M/mm3 (4.60-6.20); Red Cell Distribution Width 13.1 % (11.5-17.5); White Blood Count 8.6 K/mm3 (4.8-10.8)
[2023-03-31 15:41] LABS: Alanine Aminotransferase 44 U/L (12-78); Albumin Level 4.3 g/dl (3.5-5.0); Albumin/Globulin Ratio 1.3 (1.1-1.8); Alkaline Phosphatase 125 U/L (38-126); Anion Gap 11.6 mEq/L (5-15); Aspartate Amino Transferase 39 U/L (17-59); Blood Urea Nitrogen 10 mg/dl (9-20); Carbon Dioxide 29 mmol/L (22.0-30.0); Chloride 102 mmol/L (98-107); Cholesterol 181 mg/dl (140-200); Estimated Glomerular Filt Rate 108 ml/min (>60); GFR (African American) 131 ML/MIN (>60); Globulin 3.2 g/dL (1.3-3.2); Glucose 106 mg/dl (74-100); HDL Cholesterol 26 mg/dl (40-60); Potassium 4.6 mmoL/L (3.5-5.1); Sodium 138 mmol/L (136-145); Total Protein,Serum 7.5 g/dl (6.3-8.2); Triglycerides 273 mg/dl (30-150); VLDL Cholesterol 55 mg/dL (0-40)
[2023-03-31 15:52] LABS: Direct LDL Cholesterol 115.83 mg/dL (100-129)
[2023-03-31 15:59] LABS: 25-OH Vitamin D, Total 18.8 ng/mL (30-100)
[2023-03-31 16:12] LABS: Prostate Specific Ag Screen 0.4 ng/ml (0.0-4.0); Thyroid Stimulating Hormone 0.87 uIU/mL (0.465-4.68)
[2023-03-31 16:23] LABS: Hemoglobin A1C 5.6 % (4.0-6.0)
[2023-03-31 16:31] LABS: Vitamin B12 410 pg/mL (239-931)
[2023-03-31 16:40] LABS: Barbiturates Screen,Urine Negative ng/ml (<200)
[2023-03-31 16:41] LABS: Benzodiazepines Screen,Urine Negative ng/ml (<200)
[2023-03-31 16:42] LABS: Methadone Screen,Urine Negative ng/ml (<300)
[2023-03-31 16:43] LABS: Cannabinoid Screen,Urine Negative ng/ml (<50)
[2023-03-31 16:44] LABS: Cocaine Screen,Urine Negative ng/ml (<300); Opiate Screen,Urine Negative ng/ml (<300)
[2023-03-31 16:45] LABS: Phencyclidine Screen,Urine Negative ng/ml (<25)
[2023-03-31 16:50] LABS: Amphetamine/Metha Screen,Urine Negative ng/ml (<1000)
[2023-03-31 17:17] LABS: Ferritin 139 ng/ml (17.9-464)
[2023-04-02 10:05] LABS: Testosterone,Total 444 ng/dL (264-916)
== END ==
LOC: LAB.DROPOF 15:49
PROVIDERS: PCP Physician Assistant; Visit Provider Physician Assistant
DX: F90.9 Attention-deficit hyperactivity disorder, unspecified type (principal); R79.1 Abnormal coagulation profile; E55.9 Vitamin D deficiency, unspecified; Z79.899 Other long term (current) drug therapy; Z12.5 Encounter for screening for malignant neoplasm of prostate
CPT/HCPCS: 80053; 80061; 80307; 82306; 82607; 82728; 83036; 83735; 84403; 84443; 85025; G0103

== ENCOUNTER 2023-05-23 16:48 | Emergency (ER) | payer OTHER, SELFPAY ==
--- NOTE | 2023-05-23 17:04 | XR_ITS ---
PROCEDURE INFORMATION: Exam: XR Chest Exam date and time: 05/23/2023 4:59 PM Age: 38 years old Clinical indication: Cough and shortness of breath TECHNIQUE: Imaging protocol: Radiologic exam of the chest. Views: 2 views. COMPARISON: CT ANGIO CHEST PE PROTOCOL 09/19/2021 9:12 PM FINDINGS: Lungs: Stable calcified granulomas in the left mid lung. Pleural spaces: No large effusion or pneumothorax. Heart/Mediastinum: Stable left hilar calcified lymph nodes. Bones/joints: No evidence of acute osseous abnormalities within the visualized portions of the thoracic spine and ribs. Osseous structures appear appropriate for patient age. IMPRESSION: No dense parenchymal consolidation, pleural effusion, or pneumothorax.
[2023-05-23 18:00] VITALS: BP 162/87; PULSE 87; RESP 18; TEMP 36.7; O2SAT 97; BMI 48.4
--- NOTE | 2023-05-23 18:05 | EXP.UTC ---
Discharge Plan Disposition Patient Disposition: Home, Self-Care Condition: Good Prescriptions Prescriptions: New azithromycin [Zithromax] 250 mg tablet 250 mg PO UD DOSE PK Qty: 6 0RF Rx Instructions: Take two (2) tablets today, then one (1) tablet days #2 thru #5 benzonatate [benzonatate] 100 mg capsule 100 mg PO TIDP PRN (Reason: Cough) Qty: 30 0RF methylprednisolone 4 mg Tablets,Dose Pack 4 mg PO DIRECTED 6 Days Qty: 21 0RF Rx Instructions: Take 1 pack as directed for 6 days No Action methylphenidate HCl [Ritalin] 20 mg tablet 20 mg PO BID Qty: 60 0RF desvenlafaxine succinate [Pristiq] 50 mg tablet extended release 24 hr 50 mg PO DAILY Qty: 30 2RF cholecalciferol (vitamin D3) 50 mcg (2,000 unit) capsule 50 mcg PO DAILY Qty: 90 3RF ergocalciferol (vitamin D2) 1,250 mcg (50,000 unit) capsule 1,250 mcg PO WEEKLY Qty: 14 3RF Referrals Follow up/Referrals: Loulou Coulter PA [Primary Care Provider] - See instructions Activity Restrictions/Add. Instructions Additional Instructions/Restrictions: Drink plenty of fluids. Take tylenol or ibuprofen for pain or fever. Take the medications as directed. Follow up with your regular doctor. GO TO THE ER FOR ANY WORSENING SYMPTOMS Don't start the oral steroids until tomorrow, since you had the shot here today. Clinical Impressions Clinical Impression: Acute bronchitis Instructions Patient Instructions: Acute Bronchitis, DI for Acute Bronchitis, Dexamethasone Injection Discharge ED Provider: Girish Bajwa [facility] General Stated complaint: cough, side pain Time Seen by Provider: 05/23/23 18:05 History of Present Illness Provider Complaint: He states that for the past 1 week he has had worsening cough and chest congestion. He was running a fever when his symptoms first began, but now his main complaint is coughing and pleuritic chest and back pain with the cough. Related Data Previous Rx's Medication Instructions Recorded desvenlafaxine succinate 50 mg 50 mg PO DAILY #30 tabs 12/20/22 tablet,extended release 24 hr (Pristiq) methylphenidate HCl 20 mg tablet 20 mg PO BID #60 tabs 03/31/23 (Ritalin) cholecalciferol (vitamin D3) 50 50 mcg PO DAILY #90 caps 04/12/23 mcg (2,000 unit) capsule ergocalciferol (vitamin D2) 1,250 1,250 mcg PO WEEKLY #14 caps 04/12/23 mcg (50,000 unit) capsule azithromycin 250 mg tablet 250 mg PO UD DOSE PK #6 tabs 05/23/23 (Zithromax) benzonatate 100 mg capsule 100 mg PO TIDP PRN Cough #30 caps 05/23/23 methylprednisolone 4 mg tablets in 4 mg PO DIRECTED 6 days #21 tabs 05/23/23 a dose pack Allergies Allergy/AdvReac Type Severity Reaction Status Date / Time penicillin G [PENICILLIN G] Allergy Mild Verified 03/31/23 09:29 Sulfa (Sulfonamide Allergy Mild Verified 03/31/23 09:29 Antibiotics) [SULFA (SULFONAMIDE ANTIBIOTICS)] cariprazine [From Vraylar] AdvReac Anxiety Verified 03/31/23 09:29 [facility] Disclaimer: The information contained in this section may have been updated after the patient was seen, as this information can be updated by other users. Medical History Depression STEPHANIE (obstructive sleep apnea) Family History Other Cancer Diabetes Stroke Social History Smoking Status: Current every day smoker tobacco type: cigarettes packs per day: 1 alcohol intake: current substance use type: denies use current occupational status: employed Travel in the last 8 weeks: None household members: family housing: house marital status: ROS Obtained: Yes All systems reviewed & no additional complaints except as documented Constitutional Constitutional: Reports poor appetite Eyes Eyes: Reports system reviewed and no additional complaints, except as documented ENT Ears, Nose, Mouth, and Throat: Reports as per HPI Cardiovascular Cardiovascular: Reports system reviewed and no additional complaints, except as documented and Denies chest pain Respiratory Respiratory: Denies shortness of breath, Reports chest congestion, Reports cough, Denies stridor and Denies wheezing Gastrointestinal Gastrointestingal: Reports system reviewed and no additional complaints, except as documented; Denies abdominal pain, diarrhea or vomiting Musculoskeletal Musculoskeletal: Reports system reviewed and no additional complaints, except as documented and Denies arthralgias Integumentary/Breasts Skin/Breast: Reports system reviewed and no additional complaints, except as documented and Denies rash Neurologic Neurologic: Denies paresthesias Allergic/Immunologic Allergic/Immunologic: Denies wheezing Physical Exam General General appearance: alert and in no apparent distress Head Head exam: atraumatic, normocephalic and normal inspection Eye Eye exam: Present normal appearance, PERRL and EOMI ENT ENT exam: Present normal exam, normal oropharynx, mucous membranes moist, TM's normal bilaterally and normal external ear exam Neck Neck exam: Present normal inspection, full ROM and trachea midline; Absent meningismus or lymphadenopathy Chest Chest inspection: Present normal inspection and symmetric chest wall rise; Absent tenderness Respiratory Respiratory exam: Present normal lung sounds bilaterally; Absent respiratory distress Cardiovascular Cardiovascular exam: Present regular rate and normal rhythm; Absent JVD Abdominal Exam Abdominal exam: Present soft and normal bowel sounds; Absent distention, tenderness or guarding Extremities Exam Extremities exam: Present normal inspection, full ROM and normal capillary refill; Absent calf tenderness Back Exam Back exam: Present normal inspection; Absent tenderness Neurological Exam Neurological exam: Present alert and oriented X3 Psychiatric Psychiatric exam: Present normal affect and normal mood Skin Skin exam: Present warm, dry, intact and normal color Lymphatic Lymphatic Findings: no adenopathy Medical Decision Making Medical Records Medical records reviewed: No I reviewed the patient's medical records. David Inquiry Pt receiving controlled substance: No Orders (Tests/Meds): ORDERS Category Date Time Status Chest XR 2 view (NOT portable) [XR chest 2V] Stat Exams 05/23/23 17:04 Completed Radiology Data #1: Image(s): Chest Image Reviewed: Yes I reviewed the patient's radiology image and Yes I have reviewed radiologist's interpretation Preliminary Findings: No Infiltrates Seen PROCEDURE INFORMATION: Exam: XR Chest Exam date and time: 05/23/2023 4:59 PM Age: 38 years old Clinical indication: Cough and shortness of breath TECHNIQUE: Imaging protocol: Radiologic exam of the chest. Views: 2 views. COMPARISON: CT ANGIO CHEST PE PROTOCOL 09/19/2021 9:12 PM FINDINGS: Lungs: Stable calcified granulomas in the left mid lung. Pleural spaces: No large effusion or pneumothorax. Heart/Mediastinum: Stable left hilar calcified lymph nodes. Bones/joints: No evidence of acute osseous abnormalities within the visualized portions of the thoracic spine and ribs. Osseous structures appear appropriate for patient age. IMPRESSION: No dense parenchymal consolidation, pleural effusion, or pneumothorax.
[2023-05-23 18:17] LABS: Adenovirus,PCR Not Detected (NotDetected); Coronavirus 19, PCR Not Detected (NotDetected); Coronavirus 229E Not Detected (NotDetected); Coronavirus NL63 Not Detected (NotDetected); Coronavirus OC43 Not Detected (NotDetected); Coronovirus HKU1,PCR Not Detected (NotDetected); Human Metapneumovirus Not Detected (NotDetected); Influenza A, PCR Not Detected (NotDetected); Influenza AH1, 2009 Not Detected (NotDetected); Influenza AH1, PCR Not Detected (NotDetected); Influenza AH3,PCR Not Detected (NotDetected); Influenza B, PCR Not Detected (NotDetected); Parainfluenza 1, PCR Not Detected (NotDetected); Parainfluenza 2, PCR Not Detected (NotDetected); Parainfluenza 3, PCR Not Detected (NotDetected); Parainfluenza 4, PCR Not Detected (NotDetected); Respiratory Syncytial Virus Not Detected (NotDetected); Rhinovirus/Enterovirus Not Detected (NotDetected)
[2023-05-23] MEDS: DEXAMETHASONE 4MG/ML 1ML VIAL 8 MG IM (18:39)
[2023-05-23 18:55] VITALS: BP 162/87; PULSE 87; RESP 18; TEMP 36.7; O2SAT 97
== END 2023-05-23 18:55 | disposition home or self-care (01) ==
PROVIDERS: Emergency Provider Nurse Practitioner Family; PCP Physician Assistant
DX: J20.9 Acute bronchitis, unspecified (principal); R07.1 Chest pain on breathing; R05.8 Other specified cough; R09.89 Other specified symptoms and signs involving the circulatory and respiratory systems; R50.9 Fever, unspecified; F17.210 Nicotine dependence, cigarettes, uncomplicated
CPT/HCPCS: 71046; 87632; 87635; 96372; 99204; 99212; G0463

== ENCOUNTER 2023-11-16 18:29 | Outpatient (CLI) | payer OTHER, SELFPAY ==
[2023-11-16 12:18] LABS: Basophils # 0.1 K/mm3 (0-0.2); Eosinophils # 0.4 K/mm3 (0.0-0.4); Eosinophils % 4.3 % (0.1-12.0); Hematocrit 52.1 % (42.0-52.0); Hemoglobin 17.3 g/dL (14.1-18.0); Lymphocytes # 2.5 K/mm3 (0.7-4.5); Mean Corpuscular HGB Conc 33.2 g/dL (31.8-35.4); Mean Corpuscular Hemoglobin 33.5 pg (27.0-31.2); Mean Corpuscular Volume 101.1 fl (80-94); Mean Platelet Volume 8.7 fl (7.4-10.4); Monocytes # 0.7 K/mm3 (0.1-1.0); Monocytes % 6.6 % (1.7-9.3); Neutrophils # 6.3 K/mm3 (1.8-7.8); Platelet Count 307 K/mm3 (142-424); Red Blood Count 5.15 M/mm3 (4.60-6.20); Red Cell Distribution Width 13.7 % (11.5-17.5)
[2023-11-16 12:41] LABS: Alanine Aminotransferase 64 U/L (12-78); Albumin Level 4.6 g/dl (3.5-5.0); Albumin/Globulin Ratio 1.5 (1.1-1.8); Alkaline Phosphatase 112 U/L (38-126); Anion Gap 13.4 mEq/L (5-15); Aspartate Amino Transferase 42 U/L (17-59); Bilirubin,Total 1.1 mg/dl (0.2-1.3); Blood Urea Nitrogen 11 mg/dl (9-20); Calcium 9.8 mg/dl (8.4-10.2); Carbon Dioxide 24 mmol/L (22.0-30.0); Chloride 106 mmol/L (98-107); Chol/HDL Ratio 5.4 (1-3.5); Cholesterol 168 mg/dl (140-200); Estimated Glomerular Filt Rate 126 ml/min (>60); GFR (African American) 152 ML/MIN (>60); Globulin 3.1 g/dL (1.3-3.2); Glucose 96 mg/dl (74-100); HDL Cholesterol 31 mg/dl (40-60); Potassium 4.4 mmoL/L (3.5-5.1); Sodium 139 mmol/L (136-145); Total Protein,Serum 7.7 g/dl (6.3-8.2); Triglycerides 221 mg/dl (30-150); VLDL Cholesterol 44 mg/dL (0-40)
[2023-11-16 12:51] LABS: C-Reactive Protein 5.3 mg/L (0-4); Direct LDL Cholesterol 103.44 mg/dL (100-129)
[2023-11-16 13:00] LABS: 25-OH Vitamin D, Total 48.1 ng/mL (30-100)
[2023-11-16 13:12] LABS: Thyroid Stimulating Hormone 0.89 uIU/mL (0.465-4.68)
[2023-11-16 22:24] LABS: Hemoglobin A1C 5.4 % (4.0-6.0)
[2023-11-17 13:14] LABS: Anti-Centromere B Antibodies <0.2 AI (0.0-0.9); Anti-Cyclic Citrullinated Pept 5 units (0-19); Anti-DNA (DS) Ab Qn 1 IU/mL (0-9); Anti-Jo-1 <0.2 AI (0.0-0.9); Anti-Smith Antibody <0.2 AI (0.0-0.9); Antichromatin Antibodies <0.2 AI (0.0-0.9); Antiscleroderma-70 Antibodies <0.2 AI (0.0-0.9); RA Latex Turbid. <10.0 IU/mL (<14.0); RNP Antibodies 0.2 AI (0.0-0.9); Sjogren's Anti-SS-A 0.2 AI (0.0-0.9); Sjogren's Anti-SS-B >8.0 AI (0.0-0.9)
== END 2023-11-16 23:59 | disposition home or self-care (01) ==
LOC: LAB.DROPOF 18:30
PROVIDERS: PCP Physician Assistant; Visit Provider Physician Assistant
DX: T14.8XXD Other injury of unspecified body region, subsequent encounter (principal); Z68.35 Body mass index [BMI] 35.0-35.9, adult; E66.9 Obesity, unspecified
CPT/HCPCS: 80050; 80053; 80061; 82306; 83036; 84443; 85025; 86140; 86200; 86225; 86235; 86431

== ENCOUNTER 2023-12-01 14:54 | Outpatient (CLI) | payer OTHER, SELFPAY ==
--- NOTE | 2023-12-01 14:58 | US_ITS ---
FINAL REPORT CLINICAL HISTORY: delayed wound healing, Smoker COMPARISON: None FINDINGS: ANKLE-BRACHIAL PRESSURE INDICES Pressure indices are as follows: RIGHT LOWER EXTREMITY: Ankle-brachial pressure index: 1.4 Comments: Normal LEFT LOWER EXTREMITY: Ankle-brachial pressure index: 1.14 Comments: Normal CONCLUSION: No evidence of significant obstructive peripheral vascular disease of the lower extremities Reviewed, Interpreted and Dictated by Hao Levy III, MD Transcribed by Silvia Thacker Authenticated and [facility]
== END 2023-12-01 23:59 | disposition home or self-care (01) ==
LOC: RT 14:54
PROVIDERS: PCP Physician Assistant; Visit Provider Physician Assistant
DX: R09.89 Other specified symptoms and signs involving the circulatory and respiratory systems (principal); L98.499 Non-pressure chronic ulcer of skin of other sites with unspecified severity
CPT/HCPCS: 93923

== ENCOUNTER 2024-11-26 14:58 | Outpatient (RCR) | payer OTHER, SELFPAY | END 2024-11-26 23:59 | disposition home or self-care (01) | LOC: PT 14:58 | PROVIDERS: Visit Provider Physician Assistant | DX: L97.919 Non-pressure chronic ulcer of unspecified part of right lower leg with unspecified severity (principal) | CPT/HCPCS: 97163 ==

== ENCOUNTER 2024-12-11 10:08 | Outpatient (CLI) | payer OTHER, SELFPAY ==
--- OUTSIDE RECORDS SUMMARY | 2024-11-06 09:45 | XMS_ITS | Encounter Summary ---
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 Procedures Doppler arterial multi level lower extremity bilateral Dennys Moore MD [address] [place] [address] Phone: tel: fax: Referral ID Status Reason Start Date Expiration Date Visits Re quested Visits Authorized [id number] Closed 10/30/2024 01/29/2026 1 1 Reason for Visit * Diagnostic Imaging (Routine) - Closed Specialty Diagnoses / Procedures Referred By David gonzalez Referred To Contact Diagnoses 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 Procedures Doppler arterial multi level lower extremity bilateral Dennys Moore MD [address] [place] [address] Phone: tel: fax: Referral ID Status Reason Start Date Expiration Date Visits Re quested Visits Authorized [id number] Closed 10/30/2024 01/29/2026 1 1 Encounter Details Date Type Department Care Team (Late st Contact Info) Description 11/06/2024 9:45 AM EDT - 11/06/2024 11:59 PM EDT Hospital Encounter [facility] [address] [facility] [address] [place] [address] Dennys Zaidi MD [address] [place] [address] Non-pressure chronic ulcer of unspecified part of [...] severity documented in this encounter Care Teams Director Of Collections And Archives Relationship Specialty Start Date End Date Loulou Coulter PA [address] [facility] [place] [address] PCP - General Physician Cloth Measurer 11/05/24 documented as of this encounter
--- NOTE | 2024-12-11 10:15 | CT_ITS ---
FINAL REPORT TECHNIQUE: Post contrast axial imaging of the aorta and bilateral lower extremity was obtained and reviewed.This study was performed with techniques to keep radiation doses as low as reasonably achievable (ALARA). Individualized dose reduction techniques using automated exposure control or adjustment of mA and/or kV according to the patient''s size were employed. CLINICAL HISTORY: cold/pain BLE,claudication,[id number] wound FINDINGS: Vascular: No abdominal aortic aneurysm or dissection. The mesenteric arteries and renal arteries are patent without stenosis. The iliac arteries are patent without stenosis. Right lower extremity: The right common femoral, superficial femoral, and profunda arteries are patent without stenosis. There is noncalcified plaque in the popliteal artery with very mild stenosis. There is a three-vessel runoff in the calf. No significant atherosclerotic disease or stenosis. Left: The left common femoral, superficial femoral, and profunda arteries are patent without stenosis. The popliteal artery is patent without stenosis. There is a three-vessel runoff in the calf. No significant atherosclerotic disease or stenosis. Nonvascular: Review of the remaining abdomen and pelvis demonstrates no evidence of mass or adenopathy. There is no fluid collection or acute inflammatory process. IMPRESSION: No evidence of stenosis or occlusion. No acute process. Authenticated and ERN
--- OUTSIDE RECORDS SUMMARY | 2024-12-11 10:15 | XMS_ITS | Encounter Summary ---
Author Organization [facility] Address [address] [place] [address] Care Team Providers Care Geospatial Technician Name Role Phone Loulou Coulter Primary Care Provider [phone] Encounter Details Date Type Department Care Team (Latest Contact Info) Description 11/06/2024 Travel Social History Tobacco Use Types Packs/Day Years Used Date Smoking Tobacco: Never Assessed Sex and Gender Information Value Date Recorded Sex Assigned at Not on file Legal Sex Male 12:27 PM EDT Gender Identity Not on file Sexual Orientation Not on file documented as of this encounter Plan of Treatment Not on file documented as of this encounter Visit Diagnoses Not on filedocumented in this encounter Care Teams Geospatial Technician Relationship Specialty Start Date End Date Loulou Coulter PA [address] [place] [address] PCP - General Physician Supervisor Fabrication And Assembly 11/05/24 documented as of this encounter
--- OUTSIDE RECORDS SUMMARY | 2024-12-11 10:15 | XMS_ITS | Encounter Summary ---
Author Organization [facility] Address [address] [place] [address] Care Team Providers Care Crop Grain Or Livestock Farmer Name Role Phone Chantal Delgado BOLT HEADER Primary Care Provider [phone] Taras Monreal DDS Unavailable [phone] Juan Ochoa Unavailable Unavailable Reason for Referral * Consultation (Routine) - Closed Specialty Diagnoses / Procedures Referred By Contac t Referred To Contact Dentist / Pain Medicine Diagnoses Obstructive sleep apnea (adult) (pediatric) Shellie Warner MD [address] [facility] [address] [place] [address] Phone: tel: fax: Ambika Haney, DDS [address] [facility] [address] [place] [address] Phone: tel: fax: Referral ID Status Reason Start Date Expiration Date Visits Re quested Visits Authorized [id number] Closed 09/26/2023 03/27/2025 1 1 Encounter Details Date Type Department Care Team (Late st Contact Info) Description 09/26/2023 Community [facility] [address] [place] [address] Shellie Warner MD [address] [facility] [address] [place] [address] Obstructive sleep apnea (adult) (pediatric) (Primary Dx) Social History Tobacco Use Types Packs/Day Years Used Date Smoking Tobacco: Never Assessed Sex and Gender Information Value Date Recorded Sex Assigned at Not on file Legal Sex Male 7:25 PM EDT Gender Identity Not on file Sexual Orientation Not on file documented as of this encounter Plan of Treatment Scheduled Referrals Name Type Priority Associated Diagnoses Order Schedule Ambulatory Referral to Orofacial Pain Outpatient Referral Routine Obstructive sleep apnea (adult) (pediatric) Expected: 09/26/2023 (Approximate), Expires: 03/27/2025 documented as of this encounter Visit Diagnoses Diagnosis Obstructive sleep apnea (adult) (pediatric)- Primary documented in this encounter Care Teams Crop Grain Or Livestock Farmer Relationship Specialty Start Date End Date Chantal Delgado APRN PCP - General 08/28/20 Taras Monreal DDS [address] [facility] [address] [place] [address] Dentist Dentist 11/02/23 Juan Ochoa Dentist 11/02/23 documented as of this encounter
--- OUTSIDE RECORDS SUMMARY | 2024-12-11 10:15 | XMS_ITS | Clinical Summary ---
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 Discharge Disposition: Home or Self Care 11/06/2024 Travel from Last 3 Months Social History Tobacco Use Types Packs/Day Years Used Date Smoking Tobacco: Never Assessed Sex and Gender Information Value Date Recorded Sex Assigned at Not on file Legal Sex Male 12:27 PM EDT Gender Identity Not on file Sexual Orientation Not on file Plan of Treatment Health Maintenance Due Date Last Done Comments ANNUAL PHYSICAL 1985 HEPATITIS C SCREENING 1985 COVID-19 Vaccine (2 - 2023-2 5 season) 2023 09/18/2020 INFLUENZA VACCINE 01/15/2025 TDAP/TD VACCINES (2 - Td or Tdap) 01/05/2028 018 Pneumococcal Vaccine 0-49 Aged Out No longer eligible based on patient's age to complete this topic Procedures Procedure Name Priority Date/Time Associated Diagnosis Comments DOPPLER ARTERIAL MULTI LEVEL LOWER EXTREMITY BILATERAL CAR Routine 11/06/2024 10:53 AM EDT 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
--- OUTSIDE RECORDS SUMMARY | 2024-12-11 10:15 | XMS_ITS | Clinical Summary ---
Author Organization [facility] Address [address] [place] [address] Care Team Providers Care Petroleum Engineering Teacher Name Role Phone Chantal Delgado SENIOR MARKETING COORDINATOR Primary Care Provider Taras Monreal DDS Unavailable [phone] Chakarvarty, Mridul Unavailable Unavailable Allergies Active Allergy Reactions Criticality Noted Date Comments Penicillin G Anaphylaxis High 03/31/2023 Sulf[facility] Hives Medium 03/31/2023 Medications cholecalciferol (Vitamin D3) 200 Unit tablet split tablet 1 (one) time each day. 04/12/2023 Active desvenlafaxine (Pristiq) 50 MG 24 hr tablet 1 tablet (50 mg). 12/20/2022 Active ergocalciferol 1.25 MG (92532 UT) capsule 09/20/2023 Active methylphenidate (Ritalin) 20 MG tablet 1 tablet (20 mg). 03/31/2023 Active Social History Tobacco Use Types Packs/Day Years Used Date Smoking Tobacco: Every Day Cigarettes 1 25.7 Started: 1999 Smokeless Tobacco: Never Tobacco Cessation:Ready to Q uit: Not Asked; Counseling Given: Not Answered Alcohol Use Standard Drinks/Week Comments Not Currently 0 (1 standard drink = 0.6 oz pur e alcohol) Sex and Gender Information Value Date Recorded Sex Assigned at Not on file Legal Sex Male 7:25 PM EDT Gender Identity Not on file Sexual Orientation Not on file Last Filed Vital Signs Vital Sign Reading Time Taken Comments Blood Pressure 147/83 11/02/2023 2:12 PM EDT Pulse 78 11/02/2023 2:12 PM EDT Temperature 36.4 C (97.5 F) 11/02/2023 2:12 PM EDT Respiratory Rate - - Oxygen Saturation 96% 11/02/2023 2:12 PM EDT Inhaled Oxygen Concentration - - Weight 139 kg (307 lb 3.2 oz) 11/02/2023 2:12 PM EDT Height 198.1 cm (6' 6 ) 11/02/2023 2:12 PM EDT Body Mass Index 35.5 11/02/2023 2:12 PM EDT Plan of Treatment Health Maintenance Due Date Last Done Comments [facility]-Depression Screening 1984 [facility]-HIV Screening 1984 [facility]-Hepatitis C Screening 1984 [facility]-Infant/Child/Adol SDOH Screenings 1984 [facility]-Varicella Vaccines (1 of 2 - 13+ 2-dose series) 1997 [facility]- SDOH Screenings 2002 [facility]-Adult SDOH Screenings 2002 [facility]-Hepatitis B Vaccines (1 of 3 - 19+ 3-dose series) 2003 HPV Vaccines (1 - 3-dose SCD M series) 2011 [id number] Vaccine (2 - 20 24-25 season) 2023 09/18/2020 [facility]-Influenza Vaccine (#1) 2024 [facility]-DTaP,Tdap,and Td Vaccine s (2 - Td or Tdap) 01/05/2028 01/04/2018 [facility]-Zoster Vaccines (1 of 2) 2034 [facility]-Obesity Intervention Completed 11/02/2023 [facility]-HIB Vaccines Aged Out No longer e ligible based on patient's age to complete this topic [facility]-Hepatitis A Vaccines Aged Out No longer eligible based on patient's age to complete this topic [facility]-IPV Vaccines Aged Out No longer e ligible based on patient's age to complete this topic [facility]-Pneumococcal Vaccine: Pediatrics (0 to 5 Years) and At-Risk Patients (6 to 49 Years) Aged Out No long er eligible based on patient's age to complete this topic [facility]-Rotavirus Vaccines Aged Out No lo nger eligible based on patient's age to complete this topic Insurance [facility] Care Teams Petroleum Engineering Teacher Relationship Specialty Start Date End Date Chantal Delgado APRN PCP - General 08/28/20 Taras Monreal DDS [address] [facility] [address] [place] [address] Dentist Dentist 11/02/23 Juan Ochoa Dentist 11/02/23
[2024-12-11] MEDS: 0.9 % SODIUM CHLORIDE 50 ML VIAL 100 ML IV (10:42)
[2024-12-11] MEDS: IOPAMIDOL-370 (76%);100ML BOTTLE 120 ML IV (10:42)
[2024-12-11] MEDS: SODIUM CHLORIDE 0.9% 10ML SYR (RAD ONLY) 10 ML IV (10:42)
== END 2024-12-11 23:59 | disposition home or self-care (01) ==
PROVIDERS: PCP Physician Assistant; Visit Provider Internal Medicine
DX: I73.9 Peripheral vascular disease, unspecified (principal); M79.604 Pain in right leg; M79.605 Pain in left leg; R20.8 Other disturbances of skin sensation
CPT/HCPCS: 75635; Q9967

== ENCOUNTER 2024-12-15 17:58 | Emergency (ER) | payer OTHER, SELFPAY ==
[2024-12-15] VITALS (9 sets, daily range): BP systolic 128–155; BP diastolic 71–88; PULSE 65–93; RESP 16–18; TEMP 36.4–37.1; O2SAT 93–98; BMI 36.3
--- OUTSIDE RECORDS SUMMARY | 2024-12-15 18:05 | XMS_ITS | Clinical Summary ---
Author Organization [facility] Address [address] [place] [address] Care Team Providers Care Supervisor Vegetable Farming Name Role Phone Chantal Delgado BEATER BOSS Primary Care Provider Taras Monreal DDS Unavailable [phone] Chakarvarty, Mridul Unavailable Unavailable Allergies Active Allergy Reactions Criticality Noted Date Comments Penicillin G Anaphylaxis High 03/31/2023 Sulfa Drugs Hives Medium 03/31/2023 Medications cholecalciferol (Vitamin D3) 200 Unit tablet split tablet 1 (one) time each day. 04/12/2023 Active desvenlafaxine (Pristiq) 50 MG 24 hr tablet 1 tablet (50 mg). 12/20/2022 Active ergocalciferol 1.25 MG (88422 UT) capsule 09/20/2023 Active methylphenidate (Ritalin) 20 [...] (1 - 3-dose SCD M series) 2011 [id number] Vaccine (2 - 20 24-25 season) 2023 [...] patient's age to complete this topic Insurance [facility] Care Teams Supervisor Vegetable Farming Relationship Specialty Start Date End Date Chantal Delgado APRN PCP - General 08/28/20 Taras Monreal DDS [address] [facility] [address] [place] [address] Dentist Dentist 11/02/23 Juan Ochoa Dentist 11/02/23
--- OUTSIDE RECORDS SUMMARY | 2024-12-15 18:05 | XMS_ITS | Encounter Summary ---
Author Organization [facility] Address [address] [place] [address] Care Team Providers Care Sole Leveler Machine Name Role Phone Chantal Delgado HEEL SEAT FILLER Primary Care Provider [phone] Taras Monreal DDS Unavailable [phone] Juan Ochoa Unavailable Unavailable Reason for Referral * Consultation (Routine) - Closed Specialty Diagnoses / Procedures Referred By Contac t Referred To Contact Dentist / Pain Medicine Diagnoses Obstructive sleep apnea (adult) (pediatric) Shellie Warner MD [address] [facility] [address] [place] [address] Phone: tel: fax: Ambika Haney, DDS [address] [facility] [address] [place] [address] Phone: tel: fax: Referral ID Status Reason Start Date Expiration Date Visits Re quested Visits Authorized [id number] Closed 09/26/2023 03/27/2025 1 1 Encounter Details Date Type Department Care Team (Late st Contact Info) Description 09/26/2023 Community [facility] Community [facility] [address] [place] [address] Shellie Warner MD [address] [facility] [address] [place] [address] Obstructive sleep apnea (adult) (pediatric) [...] Primary documented in this encounter Care Teams Sole Leveler Machine Relationship Specialty Start Date End Date Chantal Delgado APRN PCP - General 08/28/20 Taras Monreal DDS [address] [facility] [address] [place] [address] Dentist Dentist 11/02/23 Juan Ochoa Dentist 11/02/23 documented as of this encounter
--- NOTE | 2024-12-15 18:13 | CT_ITS ---
PROCEDURE INFORMATION: Exam: CTA Right Lower Extremity With Contrast Exam date and time: 12/15/2024 7:13 PM Age: 39 years old Clinical indication: Other: Lateral rle ulcer, pain, erythema TECHNIQUE: Imaging protocol: Computed tomographic angiography of the right lower extremity with contrast. 3D rendering (Not supervised by radiologist): MIP and/or 3D reconstructed images were created by the technologist. Radiation optimization: All CT scans at this facility use at least one of these dose optimization techniques: automated exposure control; mA and/or kV adjustment per patient size (includes targeted exams where dose is matched to clinical indication); or iterative reconstruction. Contrast material: ISO 370; Contrast volume: 120 ml; Contrast route: INTRAVENOUS (IV); COMPARISON: No relevant prior studies available. FINDINGS: Limitations: Motion artifact does moderately limit the sensitivity of this examination. Right femoral/popliteal arteries: Right popliteal artery is completely patent and without significant stenosis or occlusion, with the caveat that the proximal segments are partially obscured by motion artifact. Right infrapopliteal arteries: Right anterior tibial artery is patent and without stenosis or occlusion. Right posterior tibial artery is patent and without stenosis or occlusion. Right peroneal artery is patent and without stenosis or occlusion. Right dorsalis pedis artery is patent and without stenosis or occlusion. Right plantar artery is patent and without stenosis or occlusion. Bones/joints: Small plantar calcaneal spur. Small posterior calcaneal enthesophyte. No acutely displaced fractures. No joint dislocation. No aggressive osseous lesions. Soft tissues: Subcutaneous swelling/edema at the level of the ankle, worse on the lateral side. No soft tissue fluid collections. IMPRESSION: 1. No acute skeletal pathology. 2. Subcutaneous swelling/edema at the level of the ankle, worse on the lateral side. 3. No hemodynamically significant arterial stenosis or occlusion.
--- NOTE | 2024-12-15 18:17 | ED_ITS ---
<Statement entered by Lorie Oh DO - 12/15/24 23:26> I was consulted by the FRANNIE, and we discussed the complexity of problems being addressed. I approve the treatment and management plan for this patient's care in the emergency department, thus performing a substantial portion of the medical decision making. Lorie Oh DO Discharge Plan Disposition Patient Disposition: Home, Self-Care Condition: Good Prescriptions Prescriptions: New doxycycline hyclate 100 mg capsule 100 mg PO BID 5 Days Qty: 10 0RF No Action pregabalin [Lyrica] 75 mg capsule 75 mg PO HS Qty: 30 5RF methylphenidate HCl 20 mg tablet 20 mg PO BID 30 Days Qty: 60 0RF cholecalciferol (vitamin D3) 50 mcg (2,000 unit) capsule 50 mcg PO DAILY Qty: 90 3RF desvenlafaxine succinate [Pristiq] 50 mg tablet extended release 24 hr 50 mg PO DAILY Qty: 90 2RF ergocalciferol (vitamin D2) 1,250 mcg (50,000 unit) capsule 1,250 mcg PO WEEKLY Qty: 14 3RF Referrals Follow up/Referrals: Loulou Coulter PA [Primary Care Provider, Medical] - See instructions Anil Boogie MD [Staff Physician, Cardiology] - See instructions Activity Restrictions/Add. Instructions Additional Instructions/Restrictions: Please return to the emergency department with any worsening signs or symptoms, worsening redness, swelling or discharge, please follow-up with wound care, printing specialist, and midwife practitioner in the upcoming days/weeks, please take your medication as prescribed. Clinical Impressions Clinical Impression: Cellulitis of leg, right, Non-healing wound of right lower extremity Instructions Patient Instructions: Cellulitis Print Language Print Language: Serbian Discharge ED Provider: Lorie Oh General Adult HPI General Chief complaint: PAIN Stated complaint: Right leg pain Time Seen by Provider: 12/15/24 18:01 Mode of Arrival: Ambulatory Source of Information: Patient, Spouse and Medical Record Limitations: No Limitations History of Present Illness HPI narrative: 39-year-old male presents the emergency department accompanied by spouse for a 3 to 4-day history of worsening right lower extremity pain swelling and redness, difficulty ambulating on the affected extremity, due to pain, spouse at the bedside shows me a picture of the patient's wound from Monday, significant redness and worsening swelling compared to then. Patient states on or Monday the patient heard a pop , and the backside of his right lower extremity, no injury or trauma per history, patient has also noted some purulent and bloody drainage from the patient's wound, patient been following wound care with dressing changes, is also followed with midwife practitioner, thought to be pyoderma gangrenosum in the setting of Sjogren syndrome, but is requiring further workup, recently saw printing specialist who had CTA abdomen with runoff which showed no vascular abnormality, has had previous bilateral lower extremity venous ablations, patient denies any fever chills chest pain shortness of breath nausea vomiting constipation diarrhea no urinary type symptomatology, no back pain, no radicular symptomatology, no numbness or tingling, no abdominal pain, patient is a current everyday smoker, denies any alcohol or other drug use, other past medical history is consistent with STEPHANIE, ADHD. Initial triage vitals are unremarkable. Also of note, patient has scheduled formal duplex ultrasound of the right lower extremity in the upcoming days. Please note that above description of symptoms, in this electronic medical record under categorization of recalled from ER triage doctor by RN are reflective of an initial nursing assessment, however, is not reflective of my full history and physical exam that was personally taken and clarified. Consequentially, this preceding description of symptoms, which may include the patient's categorized chief complaint in the EMR, do not reflect my personal clinical impression, and the ultimate description of history of present illness and patient stated complaints should be deferred to this section of the note. Unless stated otherwise or congruent with this section of the note, additional signs, symptoms, or incongruence should be interpreted as inaccurate with my clinical impression. Onset (ago): day(s) Related Data Previous Rx's ?Medication ?Instructions ?Recorded methylphenidate HCl 20 mg tablet 20 mg PO BID 30 days #60 tabs 10/16/23 cholecalciferol (vitamin D3) 50 50 mcg PO DAILY #90 ca ps 01/23/24 mcg (2,000 unit) capsule desvenlafaxine succinate 50 mg 50 mg PO DAILY #90 tabs 01/23/24 tablet,extended release 24 hr (Pristiq) ergocalciferol (vitamin D2) 1,250 1,250 mcg PO WEEKLY #14 caps 01/23/24 mcg (50,000 unit) capsule pregabalin 75 mg capsule (Lyrica) 75 mg PO HS #30 caps 12/09/24 doxycycline hyclate 100 mg capsule 100 mg PO BID 5 day s #10 caps 12/15/24 Allergies Allergy/AdvReac Type Severity Reaction Status Date / Time penicillin G (PENICILLIN G) Allergy Mild Verified 12/12/24 13:22 Sulfa (Sulfonamide Allergy Mild Verified 12/12/24 13:22 Antibiotics) (SULFA (SULFONAMIDE ANTIBIOTICS)) cariprazine (From Vraylar) AdvReac Anxiety Verified 12/12/24 13:22 [facility] Disclaimer: The information contained in this section may have been updated after the patient was seen, as this information can be updated by other users. Medical History STEPHANIE (obstructive sleep apnea) Mild STEPHANIE, symptomatic improvement on CPAP at 10 cm in combination with vitamin D replacement by PCP, CPAP compliance equal or >4 hours remains suboptimal. Depression Family History Other Cancer Diabetes Stroke Social History Smoking Status: Current every day smoker tobacco type: cigarettes packs per day: 1 alcohol intake: current alcohol intake frequency: holidays/special occasions only substance use type: denies use current occupational status: employed Travel in the last 8 weeks?: None household members: family housing: house marital status: Have you lived/traveled outside US in past 30 days?: No Contact w/someone who lives/traveled outside US past 30 days?: No Exposure to someone with infectious disease in past 14 days?: No Do you have a fever (greater than 100.4 F or 38 C)?: No Have you tested positive for COVID-19?: No Exposed to someone with COVID-19 in past 14 days?: No Do you have a sore throat?: No Do you have a cough?: No Do you have any weakness?: No Do you have any diarrhea?: No Are you experiencing any unusual bleeding?: No Do you have any muscle aches/pain?: No Do you have any abdominal pain?: No Are you experiencing loss of taste or smell?: No Other Medical History Have you received the Flu Vaccine for this season: Yes Have you received the Pneumonia Vaccine: No ROS Obtained: Yes All systems reviewed & no additional complaints except as documented Physical Exam General General appearance: alert and in no apparent distress Head Head exam: atraumatic and normocephalic Eye Eye exam: Present PERRL and EOMI ENT ENT exam: Present mucous membranes moist Neck Neck exam: Present normal inspection Chest Chest inspection: Present normal inspection and symmetric chest wall rise Respiratory Respiratory exam: Present normal lung sounds bilaterally; Absent respiratory distress Cardiovascular Cardiovascular exam: Present regular rate and normal rhythm Abdominal Exam Abdominal exam: Present soft; Absent tenderness, guarding, rebound or rigidity Extremities Exam Extremities exam: Present normal inspection, full ROM, tenderness, normal capillary refill, edema and other (Otherwise neurovascular intact, pain palpation to the lateral aspect of the patient's tib-fib region) Neurological Exam Neurological exam: Present alert and oriented X3 Psychiatric Psychiatric exam: Present normal affect Skin Skin exam: Present warm, dry, erythema and other (Some minimal lower extremity edema significant erythema and obvious ulcerative wound to the lateral aspect of the patient's right lower extremity, with pain to palpation over the area, and some purulent drainage noted,) Medical Decision Making Medical Records Medical records reviewed: Yes I reviewed the patient's medical records. Screening: Per USPSTF and CDC recommendations, given the prevalence of disease in our region, it is our hospital?s policy to screen for HIV and viral Hepatitis for all patients aged 18 and over and those with ongoing risk factors. David Inquiry Pt receiving controlled substance: Yes David was queried for this patient: No Reason not queried -: Emergent pt cond-no time Risks and benefits of using a controlled substance: were discussed with pt by me Vital Signs: 12/15/24 18:09 12/15/24 18:20 12/15/24 19:00 Temperature 97.6 F 97.6 F Temperature Source Oral Oral Pulse Rate 77 75 Pulse Rate [Right] 77 Respiratory Rate 18 18 Blood Pressure 150/88 H 149/81 H Blood Pressure [Right Arm] 150/88 H Blood Pressure Mean 104 Blood Pressure Mean [Right Arm] 108 Blood Pressure Source Automatic Cuff Blood Pressure Source [Right Arm] Automatic Cuff Blood Pressure Position Supine Blood Pressure Position [Right Arm] Supine 02 Sat by Pulse Oximetry 97 97 95 Oxygen Delivery Method Room Air Room Air 12/15/24 19:27 12/15/24 19:28 12/15/24 19:30 Temperature Temperature Source Pulse Rate 72 73 75 Pulse Rate [Right] Respiratory Rate 16 Blood Pressure 143/71 H 143/71 H 155/81 H Blood Pressure [Right Arm] Blood Pressure Mean 95 100 Blood Pressure Mean [Right Arm] Blood Pressure Source Blood Pressure Source [Right Arm] Blood Pressure Position Blood Pressure Position [Right Arm] 02 Sat by Pulse Oximetry 98 98 93 L Oxygen Delivery Method Room Air 12/15/24 20:00 12/15/24 21:08 Temperature Temperature Source Pulse Rate 93 H 66 Pulse Rate [Right] Respiratory Rate 16 Blood Pressure 144/81 H 128/79 Blood Pressure [Right Arm] Blood Pressure Mean 93 Blood Pressure Mean [Right Arm] Blood Pressure Source Blood Pressure Source [Right Arm] Blood Pressure Position Blood Pressure Position [Right Arm] 02 Sat by Pulse Oximetry 95 95 Oxygen Delivery Method Room Air Lab Data Lab results reviewed: Yes I reviewed the patient's lab results. Lab Results 12/15/24 18:10: WBC 11.2 H, RBC 4.88, Hgb 16.3, Hct 46.4, MCV 95.1 H, MCH 33.4 H , MCHC 35.1, RDW 12.6, Plt Count 329, MPV 10.1, Neut % (Auto) 58.5, Lymph % (Auto) 26.5, [place] % (Auto) 9.4 H, Eos % (Auto) 4.7, Baso % (Auto) 0.5, Neut # (Auto) 6.5, Lymph # (Auto) 3.0, [place] # (Auto) 1.1 H, Eos # (Auto) 0.5 H, Baso # (Auto) 0.1, ESR 1, PT 11.0, INR 0.99, APTT 26.7, Sodium 139, Potassium 4.0, Chloride 103, Carbon Dioxide 26, Anion Gap 14.0, BUN 12, Creatinine 0.80, Estimated Creat Clear 248, Estimated GFR 107, Est GFR ( Amer) 130, G lucose 142 H, Lactate 1.5, Calcium 9.1, Total Bilirubin 0.8, AST 48, ALT 73, Alkaline Phosphatase 104, C-Reactive Protein 7.9 H, NT-Pro-B Natriuret Pep < 20.0, Total Protein 7.4, Albumin 4.2, Globulin 3.2, Albumin/Globulin Ratio 1.3, HCV Ab JILL w/Rflx PCR Qn Negative, HIV Ag/Ab Combo Qual Negative 12/15/24 18:10 12/15/24 18:10 Orders (Tests/Meds): ED MEDICATIONS Generic Name Dose Route Start Last Admin Trade Name Lenny PRN Reason Stop Dose Admin Hydromorphone HCl 0.5 mg 12/15/24 21:18 Hydromorphone 2mg/Ml Syringe IV 12/15/24 21:19 ONCE ONE Discontinued Medications Generic Name Dose Route Start Last Admin Trade Name Freq PRN Reason Stop Dose Admin Hydromorphone HCl 0.5 mg 12/15/24 18:16 12/15/24 18:32 Hydromorphone 2mg/Ml Syringe IV 12/15/24 18:17 0.5 mg ONCE ONE Administration Hydromorphone HCl 0.5 mg 12/15/24 18:52 12/15/24 18:57 Hydromorphone 2mg/Ml Syringe IV 12/15/24 18:53 0.5 mg ONCE ONE Administration Iopamidol 120 ml 12/15/24 19:11 12/15/24 19:17 Iopamidol-370 (76%);100ml Bottle IV 12/15/24 19:12 120 ml ONCE ONE Administration Ondansetron HCl 4 mg 12/15/24 18:20 12/15/24 18:32 Ondansetron 4mg/2ml Vial IV 12/15/24 18:21 4 mg ONCE ONE Administration Sodium Chloride 50 ml 12/15/24 19:11 12/15/24 19:16 0.9 % Sodium Chloride 50 Ml Vial IV 12/15/24 19:12 50 ml ONCE ONE Administration Sodium Chloride 10 ml 12/15/24 19:11 12/15/24 19:17 Sodium Chloride 0.9% 10ml Syr (Rad Only) IV 12/15/24 19:12 10 ml ONCE ONE Administration ORDERS Category Date Time Status CT angio LE RT Stat Cat Scan 12/15/24 18:13 Completed POCUS Point of Care (ER Only) Stat Exams 12/15/24 18:27 Ordered CRP [C-Reactive Protein] Stat Lab 12/15/24 18:10 Completed Complete Blood Count Auto Diff Stat Lab 12/15/24 18:10 Completed Comprehensive Metabolic Panel Stat Lab 12/15/24 18:10 Completed ESR [Erythrocyte Sedimentation Rate] Stat Lab 12/15/24 18:10 Completed HIV Combo Stat Lab 12/15/24 18:10 Completed Hepatitis C Ab Qual. W/ RFX Stat Lab 12/15/24 18:10 Completed Lactic Acid Stat Lab 12/15/24 18:10 Completed NT Pro Brain Natriuretic Pep. Stat Lab 12/15/24 18:10 Completed PT INR [Prothrombin Time INR] Stat Lab 12/15/24 18:10 Completed PTT [Activated Partial Thrombo Time] Stat Lab 12/15/24 18:10 Completed Blood Culture Stat Micro 12/15/24 18:29 Received Medical Decision Narrative: 39-year-old male presents to the emergency department with a 3 to 4-day history of worsening right lower extremity pain redness swelling and drainage from ongoing chronic wound, differential diagnosis include but not limited to, cellulitis, peripheral vascular disease, chronic venous insufficiency, vascular ulcer, pyoderma gangrenosum, cellulitic abscess, pressure ulcer, osteomyelitis, among others. I discussed this patient's case with the attending physician Dr. Oh she saw and examined the patient as well. Will obtain basic laboratory studies, ESR CRP, proBNP, lactic acid level, PT/INR, PTT, blood cultures, will give 0.5 mg IV Dilaudid and Zofran 4 mg IV for pain and nausea will obtain CTA of the right lower extremity, for further evaluation/characterization. CBC is noted for minimal leukocytosis at 11.2, MCV is minimally elevated at 95.1 CMP notable for normal lactic acid level PT, INR and PTT within normal limits. I was notified by nursing staff at approximately 6:52 PM that the patient was complaining of some pain, will give additional dose of 0.5 mg IV Dilaudid. ESR within normal limits CRP is mildly elevated at 7.9, previously elevated, proBNP within normal limits. I reviewed the patient's CTA right lower extremity along with the corresponding radiologic report no acute skeletal pathology, subcutaneous swelling/edema at the level of the ankle worse on the lateral side, no hemodynamically significant arterial stenosis or occlusion. Patient to having some pain, will give additional dose of IV analgesia. CT bedside POCUS ultrasound per attending physician report, no evidence of any acute DVT, I discussed all results with the patient and family at the bedside, will cover the patient for cellulitis with doxycycline 100 mg p.o. twice daily 5 days, as patient has documented penicillin and sulfa allergy with reaction where he states his tongue swells . I marked the area with a sharpie marker to monitor for any worsening erythema or demarcation of the wound, patient followed with wound care, printing specialist and midwife practitioner in the coming days, will also prescribe p.o. analgesia per attending physician. Patient and family voiced understanding and agreement with current treatment plan/discharge plan. Strict return precaution given. Critical Care Critical Care Time Critical Care Time: No
[2024-12-15] MEDS: ONDANSETRON 4MG/2ML VIAL 4 MG IV (18:32)
[2024-12-15] MEDS: HYDROMORPHONE 2MG/ML SYRINGE 0.5 MG IV ×3 (18:32→21:37)
[2024-12-15 18:36] LABS: Hematocrit 46.4 % (42.0-52.0); Hemoglobin 16.3 g/dL (14.1-18.0); Immature Granulocytes % 0.4 %; Mean Corpuscular HGB Conc 35.1 g/dL (31.8-35.4); Mean Corpuscular Hemoglobin 33.4 pg (27.0-31.2); Mean Corpuscular Volume 95.1 fl (80-94); Nucleated Red Blood Cells % 0 %; Platelet Count 329 K/mm3 (142-424); Red Blood Count 4.88 M/mm3 (4.60-6.20); Red Cell Distribution Width-SD 43.6 fL; White Blood Count 11.2 K/mm3 (4.8-10.8)
[2024-12-15 18:40] LABS: Alanine Aminotransferase 73 U/L (12-78); Albumin Level 4.2 g/dl (3.5-5.0); Albumin/Globulin Ratio 1.3 (1.1-1.8); Alkaline Phosphatase 104 U/L (38-126); Anion Gap 14.0 mEq/L (5-15); Aspartate Amino Transferase 48 U/L (17-59); Bilirubin,Total 0.8 mg/dl (0.2-1.3); Blood Urea Nitrogen 12 mg/dl (9-20); Calcium 9.1 mg/dl (8.4-10.2); Carbon Dioxide 26 mmol/L (22.0-30.0); Chloride 103 mmol/L (98-107); Creatinine Clearance Estimated 248 mL/min (50-200); Creatinine,Serum 0.80 mg/dl (0.66-1.25); Estimated Glomerular Filt Rate 107 ml/min (>60); GFR (African American) 130 ML/MIN (>60); Globulin 3.2 g/dL (1.3-3.2); Glucose 142 mg/dl (74-100); Potassium 4.0 mmoL/L (3.5-5.1); Sodium 139 mmol/L (136-145); Total Protein,Serum 7.4 g/dl (6.3-8.2)
[2024-12-15 18:44] LABS: Activated Partial Thrombo Time 26.7 seconds (22.8-30.6); INR 0.99 (0.9-1.1); Prothrombin Time 11.0 seconds (10.1-12.5)
[2024-12-15 18:45] LABS: C-Reactive Protein 7.9 mg/L (0-4)
[2024-12-15 18:51] LABS: NT Pro Brain Natriuretic Pep. < 20.0 pg/mL (0-125)
[2024-12-15] MEDS: 0.9 % SODIUM CHLORIDE 50 ML VIAL IV (19:16)
--- NOTE | 2024-12-15 19:16 | PC.NURSE ---
Resumed care from ALANA Crocker. PT at CT scan
[2024-12-15] MEDS: IOPAMIDOL-370 (76%);100ML BOTTLE 120 ML IV (19:17)
[2024-12-15] MEDS: SODIUM CHLORIDE 0.9% 10ML SYR (RAD ONLY) 10 ML IV (19:17)
[2024-12-15 20:18] LABS: Hepatitis C Ab Qual. W/ RFX NEGATIVE (Negative)
== END 2024-12-15 21:53 | disposition home or self-care (01) ==
PROVIDERS: Physician Assistant; Emergency Provider Student in an Organized Health Care Education/Training Program; PCP Physician Assistant
DX: L03.115 Cellulitis of right lower limb (principal); S81.801A Unspecified open wound, right lower leg, initial encounter; M79.604 Pain in right leg; F17.210 Nicotine dependence, cigarettes, uncomplicated; X58.XXXA Exposure to other specified factors, initial encounter
CPT/HCPCS: 73706; 80053; 83605; 83880; 85025; 85610; 85651; 85730; 86140; 86803; 87040; 87389; 96374; 96375; 96376; 99284; J1171; J2405; Q9967

== ENCOUNTER 2025-01-02 15:03 | Outpatient (CLI) | payer OTHER, SELFPAY ==
--- OUTSIDE RECORDS SUMMARY | 2024-11-06 09:45 | XMS_ITS | Encounter Summary ---
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 Procedures Doppler arterial multi level lower extremity bilateral Dennys Moore MD [address] [place] [address] Phone: tel: fax: Referral ID Status Reason Start Date Expiration Date Visits Re quested Visits Authorized [id number] Closed 10/30/2024 01/29/2026 1 1 Reason for Visit * Diagnostic Imaging (Routine) - Closed Specialty Diagnoses / Procedures Referred By David gonzalez Referred To Contact Diagnoses 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 Procedures Doppler arterial multi level lower extremity bilateral Dennys Moore MD [address] [place] [address] Phone: tel: fax: Referral ID Status Reason Start Date Expiration Date Visits Re quested Visits Authorized [id number] Closed 10/30/2024 01/29/2026 1 1 Encounter Details Date Type Department Care Team (Late st Contact Info) Description 11/06/2024 9:45 AM EDT - 11/06/2024 11:59 PM EDT Hospital Encounter [facility] [address] INCLUD[address] [facility] [address] [place] [address] Dennys Zaidi MD [address] [place] [address] 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 Discharge Disposition: Home or Self Care Social History Tobacco Use Types Packs/Day Years Used Date Smoking Tobacco: Never Assessed Sex and Gender Information Value Date Recorded Sex Assigned at Not on file Legal Sex Male 12:27 PM EDT Gender Identity Not on file Sexual Orientation Not on file documented as of this encounter Plan of Treatment Not on file documented as of this encounter Procedures Procedure Name Priority Date/Time Associated Diagnosis Comments DOPPLER ARTERIAL MULTI LEVEL LOWER EXTREMITY BILATERAL CAR Routine 11/06/2024 10:53 AM EDT 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 documented in this encounter Results * Doppler arterial multi level lower extremity bilateral CAR (11/06/2024 10:53 AM EDT) Upper arterial right arm brachial sys max 138 Upper arterial left arm brachial sys max 140 RIGHT LOW THIGH SYS MAX 212 LEFT LOW THIGH SYS MAX 187 RIGHT POPLITEAL SYS MAX 166 LEFT POPLITEAL SYS MAX 166 RIGHT POST TIBIAL SYS MAX 162 LEFT POST TIBIAL SYS MAX 168 RIGHT DORSALIS PEDIS SYS MAX 158 LEFT DORSALIS PEDIS SYS MAX 154 LEFT GREAT TOE SYS MAX 135 BH CV LOWER ARTERIAL RIGHT LOW THIGH RATIO 1.51 BH CV LOWER ARTERIAL LEFT LOW THIGH RATIO 1.34 RIGHT CALF RATIO 1.19 LEFT CALF RATIO 1.19 RIGHT LIVE RATIO 1.16 LEFT LIVE RATIO 1.2 LEFT TBI RATIO 0.96 Anatomical Region Laterality Modality Ultrasound Narrative 11/06/2024 12:50 PM EDT Multiphasic waveforms of bilateral lower extremities Normal LIVE bilaterally Study Findings Right Sided Findings: Right Common Femoral: The pulse is detected w/ Doppler. Multiphasic, high resistive arterial flow noted. Right Popliteal: The pulse is detected w/ Doppler. Multiphasic, high resistive arterial flow noted. Right Posterior Tibial: The pulse is detected w/ Doppler. Multiphasic, high resistive arterial flow noted. Right Dorsalis Pedis: The pulse is detected w/ Doppler. Multiphasic, high resistive arterial flow noted. Right lower assessment findings include ulceration. Left Sided Findings: Left Common Femoral: The pulse is detected w/ Doppler. Multiphasic, high resistive arterial flow noted. Left Popliteal: The pulse is detected w/ Doppler. Multiphasic, high resistive arterial flow noted. Left Posterior Tibial: The pulse is detected w/ Doppler. Multiphasic, high resistive arterial flow noted. Left Dorsalis Pedis: The pulse is detected w/ Doppler. Multiphasic, high resistive arterial flow noted. Unable to obtain right TBI due to machine error.. Additional Study Details The study is technically good for diagnosis. The quality of the study is limited due to Machine error.. No prior exam for comparison. 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
--- OUTSIDE RECORDS SUMMARY | 2025-01-02 15:05 | XMS_ITS | Encounter Summary ---
Author Organization [facility] Address [address] [place] [address] Care Team Providers Care Transition Rn Name Role Phone Chantal Delgado Austin BILL Primary Care Provider [phone] Taras Monreal DDS Unavailable [phone] Chachelovargary, Mridul Unavailable Unavailable Reason for Referral * Consultation (Routine) - Closed Specialty Diagnoses / Procedures Referred By David gonzalez Referred To Contact Dentist / Pain Medicine Diagnoses Obstructive sleep apnea (adult) (pediatric) Shellie Warner MD [address] [place] [address] Phone: tel: fax: Ambika Haney, DDS [address] [place] [address] Phone: tel: fax: Referral ID Status Reason Start Date Expiration Date Visits Re quested Visits Authorized [id number] Closed 09/26/2023 03/27/2025 1 1 Encounter Details Date Type Department Care Team (Late st Contact Info) Description 09/26/2023 Community [facility] [address] [place] [address] Shellie Warner MD [address] [address] Obstructive sleep apnea (adult) (pediatric) (Primary Dx) Social History Tobacco Use Types Packs/Day Years Used Date Smoking Tobacco: Never Assessed Sex and Gender Information Value Date Recorded Sex Assigned at Not on file Legal Sex Male 7:25 PM EDT Gender Identity Not on file Sexual Orientation Not on file documented as of this encounter Plan of Treatment Upcoming Encounters Date Type Department Care Team (Late st Contact Info) Description 01/09/2025 10:30 AM EDT Consult [facility] [address] [place] [address] Soco Hein PA [address] [place] [address] Scheduled Referrals Name Type Priority Associated Diagnoses Order Schedule Ambulatory Referral to Orofacial Pain Outpatient Referral Routine Obstructive sleep apnea (adult) (pediatric) Expected: 09/26/2023 (Approximate), Expires: 03/27/2025 documented as of this encounter Visit Diagnoses Diagnosis Obstructive sleep apnea (adult) (pediatric)- Primary documented in this encounter Care Teams Transition Rn Relationship Specialty Start Date End Date Chantal Delgado APRN PCP - General 08/28/20 Taras Monreal DDS [address] [place] [id number] Dentist Dentist 11/02/23 Juan Ochoa Dentist 11/02/23 documented as of this encounter
--- OUTSIDE RECORDS SUMMARY | 2025-01-02 15:05 | XMS_ITS | Clinical Summary ---
Author Organization [facility] Address [address] [place] [address] Care Team Providers Care Plater Production Name Role Phone DannyChantal ayala [place] [address] DRIVER Primary Care Provider Taras Monreal DDS Unavailable [phone] Chakarvarty, Mridul Unavailable Unavailable Allergies Active Allergy Reactions Criticality Noted Date Comments Penicillin G Anaphylaxis High 03/31/2023 Sulfa Drugs Hives Medium 03/31/2023 Medications cholecalciferol (Vitamin D3) 200 Unit tablet split tablet 1 (one) time each day. 04/12/2023 Active desvenlafaxine (Pristiq) 50 MG 24 hr tablet 1 tablet (50 mg). 12/20/2022 Active ergocalciferol 1.25 MG (36045 UT) capsule 09/20/2023 Active methylphenidate (Ritalin) 20 [...] 11/02/2023 2:12 PM EDT Plan of Treatment Upcoming Encounters Date Type Department Care Team (Late st Contact Info) Description 01/09/2025 10:30 AM EDT Consult [facility] Medicine Specialties [address] [place] [address] Soco Hein PA [address] [place] [address] Health Maintenance Due Date Last Done Comments [facility]-Depression Screening 1984 [facility]-HIV Screening 1984 [facility]-Hepatitis C Screening 1984 [facility]-Infant/Child/Adol SDOH Screenings 1984 [facility]-Varicella Vaccines (1 of 2 - 13+ 2-dose series) 1997 [facility]- SDOH Screenings 2002 [facility]-Adult SDOH Screenings 2002 [facility]-Hepatitis B Vaccines (1 of 3 - 19+ 3-dose series) 2003 HPV Vaccines (1 - 3-dose SCD M series) 2011 [id number]-[id number]-[id number] Vaccine (2 - 20 25-26 season) 2024 09/18/2020 [facility]-Influenza Vaccine (#1) 2024 [facility]-DTaP,Tdap,and Td [...] to complete this topic Insurance [facility] Care Teams Plater Production Relationship Specialty Start Date End Date Chantal Delgado APRN PCP - General 08/28/20 Taras Monreal DDS [address] [facility] [address] [place] [id number] Dentist Dentist 11/02/23 Juan Ochoa Dentist 11/02/23
--- OUTSIDE RECORDS SUMMARY | 2025-01-02 15:05 | XMS_ITS | Clinical Summary ---
Author Organization [facility] Address [address] [place] [address] Care Team Providers Care Deaf/Hard Of Hearing Specialist Name Role Phone Loulou Couletr Primary Care Provider [phone] Encounters Date Type Department Care Team Description 11/06/2024 9:45 AM EDT - 11/06/2024 11:59 PM EDT Hospital Encounter [facility] [address] [place] [address] [address] [place] [address] Dennys Zaidi MD Non-pressure chronic ulcer of [...] ANNUAL PHYSICAL 1984 HEPATITIS C SCREENING 1984 INFLUENZA VACCINE 11/15/2024 COVID-19 Vaccine (2 - 2024-2 6 season) 2024 09/18/2020 TDAP/TD VACCINES (2 - Td or Tdap) [...] Res ult from Last 3 Months Insurance [facility] Care Teams Deaf/Hard Of Hearing Specialist Relationship Specialty Start Date End Date Loulou Coulter PA [address] [place] [address] PCP - General Physician Risk Prevention Engineer 11/05/24
--- OUTSIDE RECORDS SUMMARY | 2025-01-02 15:05 | XMS_ITS | Encounter Summary ---
Author Organization [facility] Address [address] [place] [address] Care Team Providers Care Bead Stringer Name Role Phone Loulou Coulter Primary Care Provider [phone] Encounter Details Date Type Department Care Team [...] on filedocumented in this encounter Care Teams Bead Stringer Relationship Specialty Start Date End Date Loulou Coulter PA [address] [place] [address] PCP - General Physician Landscaping Specialist 11/05/24 documented as of this encounter
--- NOTE | 2025-01-02 15:15 | CA_ITS ---
FINAL REPORT TECHNIQUE: Compression hinkle scale and Doppler evaluation CLINICAL HISTORY: NON-HEALING WOUND LATERAL CALF,PAIN RLE,NUMBNESS RLE FINDINGS: Femoral and popliteal veins show normal compressibility and flow. Visualized portion of the calf veins are patent by Doppler exam. IMPRESSION: No evidence of right lower extremity deep venous thrombosis Reviewed, Interpreted and Dictated by Evans Berry MD Transcribed by Velvet Joseph Authenticated and [facility]
== END 2025-01-02 23:59 | disposition home or self-care (01) ==
LOC: RT 15:04
PROVIDERS: PCP Physician Assistant; Visit Provider Internal Medicine
DX: I73.9 Peripheral vascular disease, unspecified (principal); M79.604 Pain in right leg; R20.8 Other disturbances of skin sensation; M35.00 Sjogren syndrome, unspecified; S81.801A Unspecified open wound, right lower leg, initial encounter
CPT/HCPCS: 93971

== ENCOUNTER 2025-04-05 00:55 | Emergency (ER) | payer OTHER, SELFPAY ==
--- OUTSIDE RECORDS SUMMARY | 2025-02-20 08:00 | XMS_ITS | Encounter Summary ---
Author Organization Healthcare Address [address] [place] [address] Care Team Providers Care Assurance Senior Manager Insurance Name Role Phone Taras Monreal DDS Unavailable Juan Ochoa Unavailable Unavailable Loulou Coulter Primary Care Provider [phone] Reason for Referral * Imaging (Routine) - Pending Review Specialty Diagnoses / Procedures Referred By David t Referred To Contact Radiology Diagnoses Abnormal CXR Procedures CT Chest wo IV Contrast Soco Hein PA [address] [place] [address] Phone: tel: fax: Referral ID Status Reason Start Date Expiration Date V isits Requested Visits Authorized [id number] Pending Review 02/20/2025 08/22/2026 1 1 Reason for Visit * Reason Comments Consult * Consultation (Routine) - Closed Specialty Diagnoses / Procedures Referred By David t Referred To Contact Rheumatology Diagnoses Sjogren syndrome (CMS/HCC) Positive LIONEL (antinuclear antibody) Anil Boogie MD [address] [facility] [address] [address] Phone: tel: fax: Referral ID Status Reason Start Date Expiration Date V isits Requested Visits Authorized [id number] Closed Specialty Services Required 12/19/2024 06/20/2026 1 1 Encounter Details Date Type Department Care Team (Late st Contact Info) Description 02/20/2025 8:00 AM EST Consult [facility] [address] [place] [address] Soco Hein PA [address] [place] [address] 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); Inflammatory polyarthropathy (CMS/HCC); Pyoderma gangrenosum; SS-B antibody positive; Abnormal CXR; High risk medication use Social History Tobacco Use Types Packs/Day Years Used Date Smoking Tobacco: Every Day Cigarettes 05 12 Started: 1999 Smokeless Tobacco: Never Alcohol Use Standard Drinks/Week Comments Not Currently 0 (1 standard drink = 0.6 oz pur e alcohol) PHQ-2 Answer Date Recorded Patient Health Questionnaire-2 Score 0 02/20/2025 PHQ-9 Answer Date Recorded Patient Health Questionnaire-9 Score 0 02/20/2025 Sex and Gender Information Value Date Recorded Sex Assigned at Not on file Legal Sex Male 7:25 PM EDT Gender Identity Not on file Sexual Orientation Not on file documented as of this encounter Last Filed Vital Signs Vital Sign Reading Time Taken Comments Blood Pressure 123/79 02/20/2025 10:13 AM EST Pulse 69 02/20/2025 8:26 AM EST Temperature 36.5 C (97.7 F) 02/20/2025 8:26 AM EST Respiratory Rate 16 02/20/2025 8:26 AM EST Oxygen Saturation 95% 02/20/2025 8:26 AM EST Inhaled Oxygen Concentration - - Weight 141 kg (310 lb 13.6 oz) 02/20/2025 8:26 A M EST Height 198.1 cm (6' 6 ) 02/20/2025 8:26 AM EST Body Mass Index 35.92 02/20/2025 8:26 AM EST documented in this encounter Functional Status * Over the past 2 weeks, how often have you been bothered by any of the following problems? Question Answer Date of Assessment Author Little interest or pleasure in doing things Not at all 02/20/2025 8:28 AM EST Elliot William Feeling down, depressed, or hopeless Not at all 02/20/2025 8:28 AM EST Alkassab, Elliot Patient Health Questionnaire -2 Score 0 02/20/2025 8:28 AM Elliot Stoner * Question Answer Date of Assessment Author Trouble falling or staying a sleep, or sleeping too much Not at all 02/20/2025 8:28 AM Elliot Stoner Feeling tired or having luna le energy Not at all 02/20/2025 8:28 AM Elliot Stoner Poor appetite or overeating Not at all 02/20/2025 8 :28 AM Elliot Stoner Feeling bad about yourself - or that you are a failure or have let yourself or your family down Not at all 02/20/2025 8:28 AM Elliot Stoner Trouble concentrating on thi ngs, such as reading the newspaper or watching television Not at all 02/20/2025 8:28 AM Elliot Stoner Moving or speaking so slowly that other people could have noticed. Or the opposite - being so fidgety or restless that you have been moving around a lot more than usual Not at all 02/20/2025 8:28 AM Elliot Stoner Thoughts that you would be b natalie off or hurting yourself in some way Not at all 02/20/2025 8:28 AM Elliot Stoner Patient Health Questionnaire -9 Score 0 02/20/2025 8:28 AM Elliot Stoner * How difficult have these problems made it for you to do your work, take care of things at home, or get along with other people? Answer Date of Assessment Author Not difficult at all 02/20/2025 8:28 AM Elliot Gonzalez documented as of this encounter Miscellaneous Notes * Iraida Oconnor, PharmD - 02/20/2025 10:02 AM EST Images from the original note were not included. [id number] Adalimumab Injection IMPORTANT WARNING: Using adalimumab injection may decrease your ability to fight infection and increase the chance that you will develop a serious infection. These infections may need to be treated in a hospital and may cause . Tell your doctor if you often get any type of infection or if you have or think you may have any type of infection now. This includes minor infections (such as open cuts or sores), infections that come and go (such as cold sores) or chronic infections that do not go away. Also tell your doctor if you have or have ever had any condition that affects your immune system or if you live or have ever lived in areas such as the [place] or [facility] where severe fungal infecti ons are more common. Ask your doctor if you don't know if these infections are more common in your area. Tell your doctor if you are taking medications that decrease the activity of the immune system. Your doctor will monitor you for signs of infection during and after your treatment. If you have any of the following symptoms before you begin your treatment or if you experience any of the following symptoms during or shortly after your treatment, call your doctor immediately: weakness; sweating;sore throat; cough; coughing up bloody mucus; fever; weight loss; extreme tiredness; diarrhea; stomach pain; warm, red, or painful skin; painful, difficult, or frequent urination; or other signs of infection. You may already be infected with tuberculosis (TB; a serious lung infection) or hepatitis B (a virus that affects the liver) but not have any symptoms of the disease. In this case, adalimumab injection may increase the risk that your infection will become more serious and you will develop symptoms.Your doctor will perform a skin test to see if you have an inactive TB infection and may order a blood test to see if you have an inactive hepatitis B infection. If necessary, your doctor may give you medication to treat this infection before you begin your treatment with adalimumab. Tell your doctor if you have or have ever had TB, if you have lived in or visited a country where TB is common, orif you have been around someone who has or has ever had TB. If you have any of the following symptoms of TB, or if you develop any of these symptoms during your treatment, call your doctor immediately: cough, weight loss, loss of muscle tone, fever, or night sweats. Also call your doctor immediately if you have any of these symptoms of hepatitis B or if you develop any of these symptoms during orafter your treatment: excessive tiredness, yellowing of the skin or eyes, loss of appetite, nausea or vomiting, muscle aches, dark urine, nehemiah-colored bowel movements, fever, chills, stomach pain, orrash. Some children, teenagers, and young adults who received adalimumab injection or similar medicationsdeveloped severe or life-threatening cancers. Tell your child's doctor if your child has ever had any type of cancer. If your child develops any of these symptoms during his or her treatment, call his or her doctor immediately: stomach pain; fever; unexplained weight loss; swollen glands in the neck, underarms, or groin; or easy bruising or bleeding. Talk to your child's doctor about the risks ofgiving adalimumab injection to your child. Your doctor or pharmacist will give you the landscape gardener's patient information sheet (Medication Guide) when you begin treatment with adalimumab injection and each time you receive the medication. Read the information carefully and ask your doctor or pharmacist if you have any questions. You can also visit the Food and Drug Administration (FDA) website (https://www.fda.gov/Drugs/DrugSafety/its513475.htm) or the landscape gardener's website to obtain the Medication Guide. Talk to your doctor about the risks of using adalimumab injection. WHY is this medicine prescribed? Adalimumab injection is used alone or with other medications to relieve the symptoms of certain autoimmune disorders (conditions in which the immune system attacks healthy parts of the body and causes pain, swelling, and damage) including the following: ? rheumatoid arthritis (a condition in which the body attacks its own joints, causing pain, swelling, and loss of function) in adults ? juvenile idiopathic arthritis (ROBERT; a condition that affects children in which the body attacks its own joints, causing pain, swelling, loss of function, and delays in growth and development) ? Crohn's disease (a condition in which the body attacks the lining of the digestive tract, causingpain, diarrhea, weight loss, and fever) that has not improved when treated with other medications in adults and children ? ulcerative colitis (a condition which causes swelling and sores in the lining of the colon [largeintestine] and rectum) when other medications and treatments did not help or could not be toleratedin adults and children ? ankylosing spondylitis (a condition in which the body attacks the joints of the spine and other areas causing pain and joint damage) in adults ? psoriatic arthritis (a condition that causes joint pain and swelling and scales on the skin) in adults ? hidradenitis suppurativa (a skin disease that causes pimple-like bumps in the armpits, groin, andanal area) in adults and teenagers ? uveitis (swelling and inflammation of different areas of the eye) in adults and children ? chronic plaque psoriasis (a skin disease in which red, scaly patches form on some areas of the body) in adults Adalimumab injection is in a class of medications called tumor necrosis factor (TNF) inhibitors. They work by blocking the action of TNF, a substance in the body that causes inflammation. HOW should this medicine be used? Adalimumab injection comes as a solution (liquid) in single-dose, prefilled syringes, prefilled dosing pens, prefilled automatic injection devices, and vials to inject subcutaneously (under the skin). Your doctor will tell you how often to use adalimumab based on your condition and age. To help youremember to inject adalimumab injection, rubens the days you are scheduled to inject the drug on yourcalendar. Follow the directions on your prescription label carefully, and ask your doctor or pharmacist to explain any part you do not understand. Use adalimumab injection exactly as directed. Do notuse more or less of it or use it more often than prescribed by your doctor. You will receive your first dose of adalimumab injection in your doctor's office. After that, you can inject adalimumab injection yourself or have a caregiver give the injections. Before you use adalimumab injection yourself the first time, read the written instructions that come with it. Ask your doctor or pharmacist to show you or the person who will be injecting the medication how to inject it. Use each syringe, pen, or automatic injection device only once and inject all the solution in the syringe, pen, or automatic injection device. Even if there is still some solution left in the syringe, pen, or device after you inject, do not inject again. Dispose of used syringes, pens, and devices in a puncture- resistant container. Talk to your doctor or pharmacist about how to dispose of the puncture-resistant container. If you are using an adalimumab injection that has been refrigerated, place it on a flat surface without removing the needle cap and allow it warm to room temperature for 15 to 30 minutes before you are ready to inject the medication. Do not try to warm the medication by heating it in a microwave, placing it in hot water, or through any other method. You can inject adalimumab injection anywhere on the front of your thighs or stomach except your navel (belly button) and the area 2 inches (5 centimeters) around it. To reduce the chances of sorenessor redness, use a different site for each injection. Give each injection at least 1 inch (2.5 centimeters) away from a spot that you have already used. Keep a list of the places where you have given injections so that you will not inject in these places again. Do not inject into an area where the skin is tender, bruised, red, or hard or where you have scars or stretch curtis. Always look at adalimumab injection solution before injecting it. Check that the expiration date has not passed and that the syringe, dosing pen, or automatic injection device contains the correct amount of liquid. Check with the written instructions for use to find out what your adalimumab injection solution should look like. Do not use a syringe, pen, or device if it is , if it does not contain the correct amount of liquid, or if the liquid does not look like it is described in the written instructions for use. Adalimumab injection may help control your condition but will not cure it. Continue to use adalimumab injection even if you feel well. Do not stop using adalimumab injection without talking to your doctor. Are there OTHER USES for this medicine? This medication may be prescribed for other uses; ask your doctor or pharmacist for more information. What SPECIAL PRECAUTIONS should I follow? Before using adalimumab injection ? tell your doctor or pharmacist if you are allergic to this drug, any part of this drug, or any other drugs, foods or substances. Tell your doctor or pharmacist about the allergy and what symptoms you had. ? tell your doctor and pharmacist what prescription and nonprescription medications, vitamins, nutritional supplements, and herbal products you are taking or plan to take while you are using adalimumab injection. Your doctor may need to change the doses of your medications or monitor you carefully for side effects. ? in addition to the conditions mentioned in the IMPORTANT WARNING section, tell your doctor if youhave or have ever had numbness or tingling in any part of your body, any disease that affects your nervous system, such as multiple sclerosis (a disease in which the nerves do not function properly causing weakness, numbness, loss of muscle coordination and problems with vision, speech, and bladdercontrol), Guillain-Olmos?? syndrome (weakness, tingling, and possible paralysis due to sudden nerve damage), or optic neuritis (inflammation of the nerve that sends messages from the eye to the brain); any type of cancer, diabetes, heart failure, or heart disease. If you have psoriasis, tell your doc tor if you have been treated with light therapy. ? tell your doctor if you are , plan to become , or are If you become while using adalimumab injection, call your doctor. ? if you are having surgery, including dental surgery, tell the doctor or dentist that you are using adalimumab injection. ? do not have any vaccinations without talking to your doctor. If your child will be receiving adalimumab injection, be sure that your child has received all the shots that are required for children of his or her age before he or she begins treatment with adalimumab injection. What SPECIAL DIETARY instructions should I follow? Unless your doctor tells you otherwise, continue your normal diet. What should I do IF I FORGET to take a dose? Inject the missed dose as soon as you remember it. Then inject the next dose on your regularly scheduled day. However, if it is almost time for the next dose, skip the missed dose and continue your regular dosing schedule. Do not use a double dose to make up for a missed one. What SIDE EFFECTS can this medicine cause? Some side effects can be serious. If you experience any of the following symptoms or those listed in the IMPORTANT WARNING section, call your doctor immediately or get emergency care: ? numbness or tingling, problems with vision, weakness in legs, dizziness ? shortness of breath, swelling of the feet, ankles, or lower legs ? chest pain, shortness of breath, new joint pain, rash, especially a rash on the cheeks or arms that is sensitive to sunlight ? itching, hives; difficulty breathing or swallowing; swelling of the face, eyes, lips, or mouth ? unusual bruising or bleeding pale skin ? red, scaly patches or pus-filled bumps on the skin Adults who receive adalimumab injection may be more likely to develop skin cancer, lymphoma, and other types of cancer than people who do not receive adalimumab injection. Talk to your doctor about the risks of receiving this medication. Adalimumab injection may cause other side effects. Call your doctor if you have any unusual problems while using this medication. If you experience a serious side effect, you or your doctor may send a report to the Food and Drug Administration's (FDA) MedWatch Adverse Event Reporting program online (https://www.fda.gov/Safety/MedWatch) or by phone ( ). What should I know about STORAGE and DISPOSAL of this medication? Keep this medication in the container it came in, tightly closed, and out of reach of children. Store it in the refrigerator and protect it from light. Do not freeze adalimumab injection products. Dispose of any medication that has been frozen. Adalimumab injection products usually may also be stored at room temperature (up to 77??F [25??C]) for up to 14 days and protected from light. If these adalimumab injection products are stored at room temperature for more than 14 days and they are not used, they must be disposed. Some adalimumab injection products may be stored at room temperature for longer than 14 days. Talk to your doctor about how to store your medication if you travel. Keep all medication out of sight and reach of children as many containers are not child resistant. Always lock safety caps. Place the medication in a safe location - one that is up and away and out of their sight and reach https://www.[employer].org Dispose of unneeded medications in a way so that pets, children, and other people cannot take them.Do not flush this medication down the toilet. Use a medicine take-back program. Talk to your pharmacist about take-back programs in your community. Visit the FDA's Safe Disposal of Medicines website ( https://goo.gl/c4Rm4p) for more information. What should I do in case of OVERDOSE? In case of overdose, call the poison control helpline at . Information is also available online at https://www.poisonhelp.org/help. If the victim has collapsed, had a seizure, has trouble breathing, or can't be awakened, immediately call emergency services at 441. What OTHER INFORMATION should I know? Keep all appointments with your doctor and the laboratory. Your doctor will order certain lab testsbefore, during, and after your treatment to check your body's response to adalimumab injection. Do not let anyone else use your medication. Ask your pharmacist any questions you have about refilling your prescription. Keep a written list of all of the prescription and nonprescription (qdir-qoe-ksskmjf) medicines vitamins, minerals, and dietary supplements you are taking. Bring this list with you each time you visit a doctor or if you are admitted to the hospital. You should carry the list with you in case of avtar gencies. Brand Name(s): ? Abrilada?? (adalimumab-afzb) ? Amjevita?? (adalimumab-atto) ? Cyltezo?? (adalimumab-adbm) ? Hadlima?? (adalimumab-bwwd) ? Hulio?? (adalimumab-fkjp) ? Humira?? (adalimumab) ? Hyrimoz?? (adalimumab-adaz) ? Idacio?? (adalimumab-aacf) ? Simlandi?? (adalimumab-ryvk) ? Yuflyma?? (adalimumab-aaty) ? Yusimry?? (adalimumab-aqvh) This report on medications is for your information only, and is not considered individual patient advice. Because of the changing nature of drug information, please consult your physician or pharmacist about specific clinical use. The [employer] [employer] represents that the information provided hereunder was formulated with a reasonable standard of care, and in conformity with professional standards in the field. The [place] makes no representations or warranties, express or implied, including, but not limited to, any implied warranty of merchantability and/or fitness for a particular purpose, with respect to such information and specifically disclaims all such warranties. Users are advised that decisions regarding drug therapy are complex medical decisions requiring the independent, informed decision of an appropriate health healthcare market consultant, and the information is provided for informational purposes only. The entire monograph for a drug should be reviewed for a thorough understanding of the drug's actions, uses and side effects. The [employer] does not endorse or recommend the use of any drug.The information is not a substitute for medical care. AHFS?? Patient Medication Information?. ?? Copyright, 2023. The [employer]??, [address], [address], [place], [place]. All Rights Reserved. Duplication for commercial use must be authorized by [facility]. Selected Revisions: July 30, 2024. AHFS?? Patient Medication Information?. ?? Copyright, 2024 * Progress Notes - Soco Hein PA - 02/20/2025 8:00 AM EST Images from the original note were not included. Rheumatology Office Visit - New Patient HPI: Neil Hankins is a 39 y.o. male who was referred to rheumatology by Anil Boogie MD for evaluation of Sjogren's with positive SSB Consult (02/20/2025): In 2023, he went to primary care and was found to have a +SSB. He was referred to [facility]. At that time he was negative RF, CCP, LIONEL, normal SPEP, and complement but positive SSB antibody. He had a wound at the time on his right, lateral lower extremity and got a biopsy. Diagnosed with pyoderma gangrenosum. He had the lip biopsy last year at Rheumatology and was negative. He was started on prednisone that relieved his inflammatory arthritis and was started on Methotrexate. Methotrexate caused side effects and stopped. For the ulcers, [facility]. He is on Lyrica now. Follows with cardiology, LIVE in October was slightly abnormal per , imaging in [facility] was normal for the LIVE.. The ulcer has been on his right lower extremity x 18 months. Applying betamethasone and applies wound care.He is going to a burn clinic in [place], [place] next week for the pyoderma gangrenosum. Then plansto see dermatology after he sees the burn clinic. Today, he notes hands, shoulders, and knee arthralgias. He notes synovitis in his MCP and PIP in the mornings with his pain being worse in the morning or when he's not moving. Morning stiffness x 2-3hours. Movement improves his pain. He is taking ibuprofen and tylenol that can help symptoms. Oxycodone prn. Arthralgias began 8 years ago, notes significant worsening of his symptoms in the past 2 years. Difficulty gripping a wrench at work. Steroids have improved joint pain previously. History lower back pain, however, it does not wake him at night. Endorses dry mouth 3-4 out of 10, dry mouth 4-5 out of 10. He drinks fluids for the dry mouth. He is not needing daily eye drops. Medication induced psychosis history with Vyvanse, 3 day isolated episode. Denies painless recurrent oral ulcers or nasal ulcers, recurring serositis, psoriasis or severe nail pitting, recurring rash, photosensitivity Raynaud's symptoms, digit ulcerations, renal disease, gross hematuria, severe muscle weakness, recurrent fevers with flares, dysphagia, recurrent sinusitis,psychosis or delirium, seizures, Crohn's, ulcerative colitis, uveitis, MS or other demyelinating disease, blood clots, Rheum Medication History: Methotrexate (2024, stopped due to side effects) Adalimumab (02/2025- current) Past medical history: ADHD - on adderall Smoking- on desvenlafaxine STEPHANIE Family History: FH of autoimmune diseases? Grandmother ankylosing spondylitis Social History: Exposure to HCV, HBV, HIV or TB. None hx IV drug use. None hx of tobacco use. 1.5 ppd since 15 years hx of alcohol abuse. 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 Review of Systems Constitutional: Positive for fatigue. Negative for chills and fever. HENT: Negative for mouth sores. Eyes: Negative for pain and redness. Respiratory: Negative for shortness of breath. Cardiovascular: Negative for chest pain. Genitourinary: Negative for hematuria. Musculoskeletal: Positive for arthralgias and back pain. Negative for myalgias. Skin: Positive for wound. Negative for rash. Neurological: Negative for seizures. PMx: Past Medical History[1] Psx: Surgical History[2] FMx: Family History[3] Sx: Social History Tobacco Use Smoking status: Every Day Current packs/day: 1.00 Average packs/day: 1 pack/day for 25.8 years (25.8 ttl pk-yrs) Types: Cigarettes Start date: 1999 Smokeless tobacco: Never Substance Use Topics Alcohol use: Not Currently Allergies: Allergies[4] Medications: Current Outpatient Medications Medication Instructions cholecalciferol (Vitamin D3) 200 Unit tablet split tablet Daily desvenlafaxine (PRISTIQ) 50 mg ergocalciferol 1.25 MG (32056 UT) capsule methylphenidate (RITALIN) 20 mg Objective Physical Exam Constitutional: Appearance: Normal appearance. HENT: Mouth/Throat: Mouth: Mucous membranes are moist. Comments: Saliva pooling on exam Eyes: Conjunctiva/sclera: Conjunctivae normal. Cardiovascular: Rate and Rhythm: Normal rate and regular rhythm. Pulmonary: Effort: Pulmonary effort is normal. Breath sounds: Normal breath sounds. Musculoskeletal: General: No swelling or tenderness. Normal range of motion. Comments: No synovitis, warmth, or erythema. Normal ROM Skin: General: Skin is warm. Comments: See media. Right lower extremity wrapped today. Neurological: General: No focal deficit present. Mental Status: He is alert and oriented to person, place, and time. Psychiatric: Mood and Affect: Mood normal. Behavior: Behavior normal. The above medical information was reviewed for this encounter and updated as appropriate: Current Medications[5] Patient global assessment: 0/10 Rapid 3 score: 10/30 Swollen Joint Count: Swollen: 0 Tender Joint Count: Tender: 4 Imaging Studies: Labs: Rheum Medication History: Methotrexate (2024, stopped due to side effects) Adalimumab (02/2025- current) ASSESSMENT & PLAN: Plan of care developed with Neil Hankins on (02/20/25): 1. Seronegative rheumatoid arthritis of multiple sites (CMS/HCC) (Primary) RF <10, CCP <5 by [facility]. Inflammatory arthritis apparent on his history and exam. Morning stiffness for hours and movement improves his arthralgias. Prednisone relieved his arthritis. He has tried and failed Methotrexate previously. TJC 4/SJC 0 CDAI: 20 Based on his inflammatory arthritis and failure of Methotrexate, next option would be TNF therapy. Denies CHF history. Begin Adalimumab today, discussed risk vs benefits of this medication and side effects Prescribe prednisone prn Checking monitoring labs, RA labs, and hand XR today - CBC and Differential; Future - Comprehensive Metabolic Panel, Plasma; Future - C-Reactive Protein, Plasma; Future - Sedimentation Rate, Automated; Future - Rheumatoid Factor, Plasma; Future - Cyclic Citrul Peptide Antibody IgG; Future - XR Hand and Wrist Bilateral 2 Views; Future 2. Inflammatory polyarthropathy (CMS/HCC) Endorses inflammatory arthritis of his hands, knees, and shoulders Family history of ankylosing spondylitis. Denies psoriasis, uveitis, IBD, dactylitis. His back pain appears more mechanical Checking HLA B27, per patient request - HLA B27 Typing; Future 3. Pyoderma gangrenosum Diagnosed after a biopsy at the [facility]. His right, lateral lower extremity ulcer has beengoing on x 18 months. See media. He has been following with Dr. Boogie, county engineer. LIVE was done at [facility]. LIVE was normal bilaterally. He is applying betamethasone and wound dressings daily. Plans to see burn clinic in [place] nextweek. Plans to see a account manager relief after his burn clinic visit. Denies joint effusions, acne, and history of hidradenitis suppurativa. No history of IBD. No clinical findings of pyogenic arthritis, pyoderma gangrenosum and acne syndrome. Begin Adalimumab for his seronegative RA, however, it is also indicated in pyoderma gangrenosum therapy. Consider Remicade, IL-1, or IL-17 therapies if Adalimumab is ineffective Continue betamethasone and wound care Patient will send skin biopsy records A1c today - Hemoglobin A1c; Future 4. SS-B antibody positive +SSB, negative LIONEL and normal complements and SPEP from [facility] Negative Lip biopsy from [facility] Patient endorses sicca symptoms and inflammatory arthritis. Denies drenching night sweats, lymphadenopathy, and unintentional weight loss. Ordering a LIONEL workup today, discussed that the SSB could be an incidental finding. I would not diagnose with Sjogren's today. Continue to monitor. - Protein electrophoresis, serum; Future - Antinuclear Antibody (LIONEL), HEp-2, IgG; Future - Double-Stranded DNA (dsDNA) Antibody, IgG by IFA; Future - C3 Complement; Future - C4 Complement; Future - ENAII; Future - Lawrence (HECTOR) Antibody, IgG; Future - ENAI; Future - Protein, Random, Urine with Creatinine; Future - Thyroid Peroxidase Antibody; Future 5. Abnormal CXR CXR read in clinic by myself. The CXR revealed abnormalities in the lower left lung. Chest CT was recommended for suspicion of ILD. Ordering Chest CT today, denies shortness of breath. - CT Chest wo IV Contrast; Future 6. High risk medication use Starting Adalimumab Monitoring labs and hepatitis and TB Recheck monitoring labs at next visit - Hepatitis panel, acute; Future - Quantiferon TB Gold Plus; Future #Health Maintenance Immunization History Administered Date(s) Administered Lizzie COVID-19 Vaccine (Blue Cap) 18+ 09/18/2020 MMR 07/06/1995 SARS-CoV-2, Unspecified 09/18/2020 Tdap 01/04/2018 ADDENDUM (02/26/2025): Hand XR on 02/20/2025: FINDINGS: Left hand and wrist: No acute fracture or dislocation. Osseous structures in satisfactory alignment. Mild narrowing of the interphalangeal joints. No definite erosive change. No significant soft tissue swelling. Right hand and wrist: No acute fracture or dislocation. Osseous structures in satisfactory alignment. Mild narrowing of the interphalangeal joints. No definite evidence of erosive change. No significant soft tissue swelling. IMPRESSION: No acute osseous findings. Mild narrowing of the interphalangeal joints. No evidence of erosive change. Labs on 02/20/2025: CMP, ALT 54 Thrombocytosis Normal SPEP Negative TB & hepatitis RF<10, CCP <5 Negative LIONEL +SSB 96 CRP 4.9, sed 6 Dx: Pyoderma gangrenosum, inflammatory arthritis, +SSB Plan: Begin Adalimumab Recheck hepatitis at next visit, discussed no concerns for hepatitis C. The lab could be a false positive or patient had an exposure and fought it off. Follow Up: Next scheduled follow up: Follow up in about 4 months (around 06/20/2025). Patient is agreeable to the above treatment plan and had no further questions. Thanks for the opportunity to participate in the care of this patient! If there are any questions or concerns, please reach out to me personally. Thanks! ELIN Guerrero Parts of this note were dictated using [employer] Direct voice recognition software. As a result, errors may occur. When identified, these transformation analyst errors are corrected, but while every attempt is made to prevent/correct these, errors may still exist. Time Spent: I personally spent a total of 130 minutes on this encounter. This time includes face toface with patient, counseling and discussion and/or coordination of care. minutes on the encounter.The patient was counseled about diagnostic results, instruction for management, risk factors reduction, prognosis, compliance with visits and treatment, risks and benefits of treatments options. Prior notes (by external physicians) and results were reviewed by me with independent interpretation of labs and imaging. My note will be sent to PCP and other consulting physicians. [1] No past medical history on file. [2] No past surgical history on file. [3] No family history on file. [4] Allergies Allergen Reactions Penicillin G Anaphylaxis Sulfa Drugs Hives [5] Current Outpatient Medications Medication Sig Dispense Refill cholecalciferol (Vitamin D3) 200 Unit tablet split tablet 1 (one) time each day. desvenlafaxine (Pristiq) 50 MG 24 hr tablet 1 tablet (50 mg). ergocalciferol 1.25 MG (81969 UT) capsule methylphenidate (Ritalin) 20 MG tablet 1 tablet (20 mg). No current facility-administered medications for this visit. * Progress Notes - Soco Hein PA - 02/20/2025 8:00 AM EST Specialty Pharmacy - Inflammatory Conditions Subjective Neil Hankins is a 39 y.o. male, with Seronegative Rheumatoid Arthritis ICD-10 code M06.09 presenting to clinic for first visit to establish care regarding Adalimumab Insurance Type: Commercial Preferred Pharmacies: No Pharmacies Listed Provided info for [facility]. Objective Patient has tried and failed the following therapies: Methotrexate, steroids Concomitant therapy: N/A Allergies[1] Problem List[2] Current Outpatient Medications Medication Instructions cholecalciferol (Vitamin D3) 200 Unit tablet split tablet Daily desvenlafaxine (PRISTIQ) 50 mg ergocalciferol 1.25 MG (76615 UT) capsule methylphenidate (RITALIN) 20 mg Labs: CBC (w/Diff): No results found for: WBC , RBC , HGB , HCT , PLT , MCV , MCHC , RDW , MPV , NRBC , NEUTOPHILPCT , LYMPHOPCT , MONOPCT , EOSPCT , BASOPCT , CIG , NEUTROABS , LYMPHSABS , MONOSABS , EOSABS , BASOSABS , CIGA CMP: No results found for: GLUCOSE , BUN , CREATININE , BCR , NA , K , CL , CO2 , ANIONGAP , CALCIUM , TP , ALBUMIN , AST , ALT , ALKPHOS , BILITOT , EGFR C-Reactive Protein: No results found for: CRP Lipid Panel: No results found for: CHOL , HDL , TRIG , CRATIO , LDL , [id number] Quantiferon TB: No results found for: QFTBG , QUANTIFERON , QFTBNIL , QFTBAG1 , QFTBAG2 , QFTB1N , QFTB2N , TBTEST Hepatitis B: No results found for: HEPBCAB , HEPBSAG , HEPBSAB Histo: No results found for: HISTOPSERUM Immunizations: Immunization History Administered Date(s) Administered Lizzie COVID-19 Vaccine (Blue Cap) 18+ 09/18/2020 MMR 07/06/1995 SARS-CoV-2, Unspecified 09/18/2020 Tdap 01/04/2018 Assessment/Plan [facility] specialty medication(s) were reviewed by the clinical pharmacist today. Clinical justification for prescribed therapy (if needed): Methotrexate failure Lab Assessment TB assessment: pending TB test status: pending Hepatitis B: pending Ongoing lab monitoring required: CBC. CMP Vaccine Recommendations: Prior to starting this medication, the following immunizations should be administered per most up-to-date ACIP/CDC recommendations: Influenza: Recommended for all patients annually during influenza season Pneumococcal: Recommended for 19-65 with lung disease: PCV20, unless previously vaccinated with PCV13 AND PPSV23 in any order, Recommended for adults 65 years and older Zoster: Recommended for adults 50 and older as a 2 shot series (Shingrix) administered 1-6 months apart Drug Utilization Review: Drug-disease precautions: No clinically significant issues identified Drug-drug interactions: No clinically significant issues identified Drug-patient precautions: No clinically significant issues identified Medication Administration: Route of administration: Self-injectable; Auto-injector Patient has completed subcutaneous injection training: yes Who is giving the injection: self or family member Patient was shown proper administration technique with preferred device and was agreeable to proceed with therapy. Medication Education: The patient was counseled regarding instructions for management, risk factor reductions, patient and family education, impressions, risks and benefits of treatment options, importance of compliance with biologic medications. Discussed with the patient risks, benefits and alternatives of biologic medications. Possible side effects such as, but not limited to, are: skin reactions, tuberculosis (TB), histoplasmosis and other fungal infections, severe viral infections, deep tissue bacterial infections, small increased risk of skin cancer and possibly other forms of cancer and congestive heart failure. The patient was also informed to stop taking the biologic treatment if a fever occurs or antibiotics are prescribed for an infection and to contact our office to inform us and receive further instructions. Each biologic medication has other specific risks and the patient was provided verbal and written information regarding these risks. The patient has communicated understanding regarding bio logic medications and is agreeable to treatment. Summary: Education for Adalimumab verbalized to patient and provided via clinic folder/this note. Expected start date ROBERT. Patient will call clinical pharmacist and report any side effects and will seek medical attention for signs and symptoms of infection. Patient was provided with a folder containing medi cation information, community support resources, disease and medication related support resources, and pertinent phone numbers. The patient was counseled regarding instructions for management, risk factor reductions, patient and family education, impressions, risks and benefits of treatment options, and importance of compliance with biologic medications. Discussed with the patient risks, benefitsand alternatives of biologic medications. The patient was also informed to stop taking the biologictreatment if a fever occurs or medications are prescribed for an infection and to contact our office to inform us and receive further instructions. Each specialty medication has other specific risks and the patient was provided verbal and written information regarding these risks. Patient was also counseled on time to effect varying between 3-6 months, and to notify clinic of worsening symptoms or flares. The patient has communicated understanding regarding biologic medications and is agreeableto treatment. Patient's therapy is appropriate to initiate/continue. Prescription for this medication will be routed to Specialty Pharmacy. Will continue to follow and provide support for pharmacy and medication related needs as clinicallyindicated. Iraida Gonzáles PharmD 02/20/2025 10:00 AM [1] Allergies Allergen Reactions Penicillin G Anaphylaxis Sulfa Drugs Hives [2] There is no problem list on file for this patient. documented in this encounter Plan of Treatment Upcoming Encounters Date Type Department Care Team (Late st Contact Info) Description 06/26/2025 9:00 AM EDT Office Visit [facility] [address] [place] [address] Soco Hein PA [address] [place] [address] Scheduled Orders Name Type Priority Associated Diagnoses Orde r Schedule CT Chest wo IV Contrast Imaging Routine Abnormal CXR Expected: 02/20/2025 (Approximate), Expires: 08/24/2026 documented as of this encounter Results * XR Hand and Wrist Bilateral 2 Views (02/20/2025 11:18 AM EST) Anatomical Region Laterality Modality Hand, Wrist Bilateral Digital Radiogra phy Impressions 02/20/2025 11:45 AM EST No acute osseous findings. Mild narrowing of the interphalangeal joints. No evidence of erosive change. CRITICAL RESULT: No. COMMUNICATION: Per this written report. Drafted by Jensen Fagan on 02/20/2025 11:42 AM Final report signed by Jensen Fagan on 02/20/2025 11:45 AM Narrative 02/20/2025 11:45 AM EST CLINICAL INDICATION: evaluation for inflammatory changes. TECHNIQUE: XR HAND WRIST BILATERAL 2 VIEWS COMPARISON: None. FINDINGS: Left hand and wrist: No acute fracture or dislocation. Osseous structures in satisfactory alignment. Mild narrowing of the interphalangeal joints. No definite erosive change. No significant soft tissue swelling. Right hand and wrist: No acute fracture or dislocation. Osseous structures in satisfactory alignment. Mild narrowing of the interphalangeal joints. No definite evidence of erosive change. No significant soft tissue swelling. Procedure Note Jensen Fagan MD - 02/20/2025 CLINICAL INDICATION: evaluation for inflammatory changes. TECHNIQUE: XR HAND WRIST BILATERAL 2 VIEWS COMPARISON: None. FINDINGS: Left hand and wrist: No acute fracture or dislocation. Osseous structuresin satisfactory alignment. Mild narrowing of the interphalangeal joints.No definite erosive change. No significant soft tissue swelling. Right hand and wrist: No acute fracture or dislocation. Osseous structuresin satisfactory alignment. Mild narrowing of the interphalangeal joints.No definite evidence of erosive change. No significant soft tissueswelling. IMPRESSION: No acute osseous findings. Mild narrowing of the interphalangeal joints.No evidence of erosive change. CRITICAL RESULT: No. COMMUNICATION: Per this written report. Drafted by Jensen Fagan on 02/20/2025 11:42 AM Final report signed by Jensen Fagan on 02/20/2025 11:45 AM [facility] XR PROCEDURES Final R esult * (ABNORMAL) Hemoglobin A1c (02/20/2025 10:34 AM EST) Hemoglobin A1c 5.7(H) <5.7 % 02/20/2025 12:[address] [facility] Blood Venous blood specimen / Unknown Venipuncture / Unknown 02/20/2025 10:34 AM EST 02/20/2025 10:[address] [facility] - 02/20/2025 12:49 PM EST HA1C Interpretive Data: Diagnosis of Diabetes: Diabetic > or = 6.5% Pre-diabetic 5.7 to 6.4% Non-diabetic < or = 5.6% Glycemic Targets for Type I and Type II Diabetics: Non- Adults <7.0% Adults <6.0% Children and Adolescents <7.5% Source: [place] Diabetes Association. Standards of medical care in diabetes,2017. Diabetes Care.2017:40 (suppl 1):S1-S135. [facility] BLOOD ORDERABLES Theresa hernandez Result [facility] [address] [place] [address] * Quantiferon TB Gold Plus (02/20/2025 10:34 AM EST) Quantiferon TB Gold Plus Result Negative Negative 02/21/2025 12:[address] [facility] TB Nill Value 0.0186 IU/mL 02/21/2025 12:[address] [facility] TB Antigen 1 0.0757 IU/mL 02/21/2025 12:[address] [facility] TB Antigen 2 0.0894 IU/mL 02/21/2025 12:[address] [facility] TB Mitogen 9.9814 IU/mL 02/21/2025 12:[address] [facility] Blood Venous blood specimen / Unknown Venipuncture / Unknown 02/20/2025 10:34 AM EST 02/20/2025 10:[address] [facility] - 02/21/2025 12:36 PM EST Responses to the Mitogen positive control and occasionally to TB antigen can be above the assay range. For calculation purposes: IFN-gamma values > 10 IU/mL are handled as 10 IU/mL. [facility] BLOOD ORDERABLES Theresa l Result Performing Organization Address [facility] Co de Phone Number [facility] [address] [place] [address] * (ABNORMAL) Hepatitis panel, acute (02/20/2025 10:34 AM EST) Pathologist [facility] Hepatitis B Surf Antigen Negative Negative 02/20/2025 2:[address] [facility] Hepatitis C Antibody Positive(A) Negative 02/20/2025 2:[address] [facility] Comment:This specimen is bairon ng sent for confirmation by RT-PCR. Hepatitis A Antibody IgM Negative Negative 02/20/2025 2:[address] [facility] Hepatitis B Core Antibody IgM Negative Negative 02/20/2025 2:[address] [facility] Blood Venous blood specimen / Unknown Venipuncture / Unknown 02/20/2025 10:34 AM EST 02/20/2025 10:35 AM EST [facility] BLOOD ORDERABLES Theresa l Result Performing Organization Address [facility] Co de Phone Number [facility] [address] [place] [address] * HLA B27 Typing (02/20/2025 10:34 AM EST) Blood Venous blood specimen / Unknown Venipuncture / Unknown 02/20/2025 10:34 AM EST 02/20/2025 10:35 AM EST [facility] BLOOD ORDERABLES Theresa l Result Performing Organization Address City/[facility]/ZIP Co de Phone Number [facility] [address] [place] [address], * Cyclic Citrul Peptide Antibody IgG (02/20/2025 10:34 AM EST) Pathologist [facility] Cyclic Citrul Peptide Antibody IgG <5.0 <=5.0 U/mL 02/20/2025 1:[address] [facility] Blood Venous blood specimen / Unknown Venipuncture / Unknown 02/20/2025 10:34 AM EST 02/20/2025 10:35 AM EST [facility] BLOOD ORDERABLES Theresa l Result Performing Organization Address City/[facility]/ZIP Co de Phone Number [facility] [address] [place] [address] * Rheumatoid Factor, Plasma (02/20/2025 10:34 AM EST) Rheumatoid Factor, Plasma <10 <14 IU/mL 02/20/2025 12:21 PM EST [facility] Blood Venous blood specimen / Unknown Venipuncture / Unknown 02/20/2025 10:34 AM EST 02/20/2025 10:35 AM EST [facility] BLOOD ORDERABLES Theresa l Result Performing Organization Address City/[facility]/[place] [address] * Thyroid Peroxidase Antibody (02/20/2025 10:34 AM EST) Thyroid Peroxidase Antibody <5 <=8 IU/mL 02/20/2025 12:37 PM EST [facility] Blood Venous blood specimen / Unknown Venipuncture / Unknown 02/20/2025 10:34 AM EST 02/20/2025 10:35 AM EST [facility] BLOOD ORDERABLES Theresa l Result Performing Organization Address City/[facility]/[place] [address] * ENAI (02/20/2025 10:34 AM EST) Lawrence/CAPTAIN/CHECK AIRMAN (HECTOR) Ab, IgG 4 0 - 19 Units 02/22/2025 11:39 AM EST [facility] ([facility]) Blood Venous blood specimen / Unknown Venipuncture / Unknown 02/20/2025 10:34 AM EST 02/20/2025 10:35 AM EST Narrative [facility] - 02/22/2025 11:39 AM EST INTERPRETIVE INFORMATION: Lawrence/CAPTAIN/CHECK AIRMAN (HECTOR) Antibody, IgG 19 Units or Less ............. Negative 20 to 39 Units ............... Weak Positive 40 to 80 Units ............... Moderate Positive 81 Units or greater .......... Strong Positive Lawrence/CAPTAIN/CHECK AIRMAN antibodies are frequently seen in patients with mixed connective tissue disease (MCTD) and are also associated with other systemic autoimmune rheumatic diseases (SARDs) such as systemic lupus erythematosus (SLE), systemic sclerosis, and myositis. Antibodies targeting the Lawrence/CAPTAIN/CHECK AIRMAN antigenic complex also recognize Lawrence antigens, therefore, the Lawrence antibody response must be considered when interpreting these results. Performed By: [facility] [address] [place] [address] Broomcorn Sorter: Riley Bryson MD, PhD CLIA Number: [id number] [facility] BLOOD ORDERABLES Theresa hernandez Result [facility]) [address] [place] [address] * Lawrence (HECTOR) Antibody, IgG (02/20/2025 10:34 AM EST) Lawrence (HECTOR) Antibody, IgG 1 0 - 40 AU/mL 02/22/2025 1:14 PM EST [facility] ([facility]) Serum 02/20/2025 10:3 4 AM EST 02/20/2025 10:35 AM EST Narrative [facility]) - 02/22/2025 1:14 PM EST INTERPRETIVE INFORMATION: Lawrence (HECTOR) Antibody, IgG 29 AU/mL or Less ............. Negative 30 - 40 AU/mL ................ Equivocal 41 AU/mL or Greater .......... Positive Lawrence antibody is highly specific (greater than 90 percent) for systemic lupus erythematosus (SLE) but only occurs in 30-35 percent of SLE cases. The presence of antibodies to Lawrence has variable associations with SLE clinical manifestations. Performed By: [facility] [address] [place] [address] Broomcorn Sorter: Riley Bryson MD, PhD CLIA Number: [id number] [facility] REF LAB BLOOD AND FLU ID ORD Final Result [facility] ([facility]) [address], [place] [address] * (ABNORMAL) ENAII (02/20/2025 10:34 AM EST) [facility] SSA-52 (RO52) (HETCOR) Antibody, IgG 2 0 - 40 AU/mL 02/22/2025 1:08 PM EST [employer] [facility] ([place]) SSA-60 (RO60) (HECTOR) Antibody, IgG 0 0 - 40 AU/mL 02/22/2025 1:08 PM EST [employer] [facility] ([place]) SSB ([place]) (HECTOR) Antibody, IgG 96(H) 0 - 40 AU/mL 02/22/2025 1:08 PM EST [employer] ([place]) Blood Venous blood specimen / Unknown Venipuncture / Unknown 02/20/2025 10:34 AM EST 02/20/2025 10:35 AM EST [facility] ([place]) - 02/22/2025 1:08 PM EST INTERPRETIVE INFORMATION: SSA-52 (Ro52) (HECTOR) Antibody, IgG 29 AU/mL or Less ............. Negative 30 - 40 AU/mL ................ Equivocal 41 AU/mL or Greater .......... Positive SSA-52 (Ro52) and/or SSA-60 (Ro60) antibodies are associated with a diagnosis of Sjogren syndrome, systemic lupus erythematosus (SLE), and systemic sclerosis. SSA-52 antibody overlaps significantly with the major SSc-related antibodies. SSA-52 (Ro52) antibody occurs frequently in patients with inflammatory myopathies, often in the presence of interstitial lung disease. REFERENCE INTERVAL: SSA-60 (Ro60) (HECTOR) Antibody, IgG 29 AU/mL or Less ............. Negative 30 - 40 AU/mL ................ Equivocal 41 AU/mL or Greater .......... Positive INTERPRETIVE INFORMATION: SSB ([place]) (HECTOR) Ab, IgG 29 AU/mL or Less ............. Negative 30 - 40 AU/mL ................ Equivocal 41 AU/mL or Greater .......... Positive SSB (La) antibody is seen in 50-60% of Sjogren syndrome cases and is specific if it is the only HECTOR antibody present. 15-25% of patients with systemic lupus erythematosus (SLE) and 5-10% of patients with progressive systemic sclerosis (PSS) also have this antibody. Performed By: [facility] [address] [place] [address] Broomcorn Sorter: Riley Bryson MD, PhD CLIA Number: [id number] [facility] BLOOD ORDERABLES Theresa l Result Performing Organization Address City/[facility]/ZIP Co de Phone Number [facility] ([facility] [address] [place] [address] * C4 Complement (02/20/2025 10:34 AM EST) C4 Complement 24 13 - 36 mg/dL 02/20/2025 12:[address] [facility] Blood Venous blood specimen / Unknown Venipuncture / Unknown 02/20/2025 10:34 AM EST 02/20/2025 10:35 AM EST [facility] BLOOD ORDERABLES Theresa l Result [facility] [address] [place] [address] * C3 Complement (02/20/2025 10:34 AM EST) C3 Complement 145 84 - 166 mg/dL 02/20/2025 12:[address] [facility] Blood Venous blood specimen / Unknown Venipuncture / Unknown 02/20/2025 10:34 AM EST 02/20/2025 10:35 AM EST [facility] BLOOD ORDERABLES Theresa l Result [facility] [address] [place] [address] * Double-Stranded DNA (dsDNA) Antibody, IgG by IFA (02/20/2025 10:34 AM EST) Double-Strande d DNA (dsDNA) Ab IgG IFA <1:10 <1:10 02/23/2025 9:36 PM EST [employer] ([facility]) Blood Venous blood specimen / Unknown Venipuncture / Unknown 02/20/2025 10:34 AM EST 02/20/2025 10:35 AM EST Narrative [facility] ([facility]) - 02/23/2025 9:36 PM EST INTERPRETIVE INFORMATION: Double-Stranded DNA (dsDNA) Antibody, IgG by IFA (using Crithidia luciliae) Positivity for anti-double stranded DNA (anti-dsDNA) IgG antibody is a diagnostic criterion of systemic lupus erythematosus (SLE). The presence of the anti-dsDNA IgG antibody is identified by IFA titer (Crithidia luciliae indirect fluorescent test [EDUARD]). EDUARD is highly specific for SLE with a sensitivity of 50-60 percent. Some patients with early or inactive SLE may be positive for anti-dsDNA IgG by KIRILL but negative by EDUARD. If the EDUARD result is negative but the patient has a positive KIRILL and clinical suspicion remains, consider antinuclear antibody (LIONEL) testing by IFA. Additional information and recommendations for testing may be found at [email or web address]. Performed By: [facility] [address] [place] [address] Broomcorn Sorter: Riley Bryson MD, PhD CLIA Number: [id number] [facility] BLOOD ORDERABLES Theresa hernandez Result [facility] ([facility]) [address] [place] [address] * Antinuclear Antibody (LIONEL), HEp-2, IgG (02/20/2025 10:34 AM EST) LIONEL INTERPRETIVE COMMENT See Note 02/23/2025 12:18 PM EST [facility] ([facility]) Anti Nuc Ab Screen <1:80 <1:80 02/23/2025 12:18 PM EST [facility] ([facility]) Blood Venous blood specimen / Unknown Venipuncture / Unknown 02/20/2025 10:34 AM EST 02/20/2025 10:35 AM EST Narrative [facility] ([facility]) - 02/23/2025 12:18 PM EST Clinical Interpretation: Antinuclear antibodies by IFA negative for homogeneous, speckled, nucleolar, centromere, and nuclear dots patterns. Cytoplasmic antibodies by IFA negative for reticular/AMA, discrete/GW body-like, polar/golgi-like, rods and rings, and cytoplasmic speckled patterns. INTERPRETIVE INFORMATION: LIONEL Interpretive Comment Presence of antinuclear antibodies (LIONEL) is a hallmark feature of systemic autoimmune rheumatic diseases (SARD). However, LIONEL lacks diagnostic specificity and is associated with a variety of diseases (cancers, autoimmune, infectious, and inflammatory conditions) and may also occur in healthy individuals in varying prevalence. The lack of diagnostic specificity requires confirmation of positive LIONEL by more specific serologic tests. LIONEL (nuclear reactivity) positive patterns reported include centromere, homogeneous, nuclear dots, nucleolar, or speckled. LIONEL (cytoplasmic reactivity) positive patterns reported include reticular/AMA, discrete/GW body-like, polar/golgi-like, cytoplasmic speckled or rods and rings. All positive patterns are reported to endpoint titers (1:2560). Reported patterns may help guide differential diagnosis, although they may not be specific for individual antibodies or diseases. Mitotic staining patterns not reported. Negative results do not necessarily rule out SARD. Performed By: [facility] [address] [place] [address] Broomcorn Sorter: Riley Bryson MD, PhD CLIA Number: [id number] [facility] BLOOD ORDERABLES Theresa l Result [facility] ([facility]) [address] [place] [address] * Sedimentation Rate, Automated (02/20/2025 10:34 AM EST) Sedimentation Rate 6 <15 mm/hr 2024 12:[address] [facility] Blood Venous blood specimen / Unknown Venipuncture / Unknown 02/20/2025 10:34 AM EST 02/20/2025 10:35 AM EST [facility] BLOOD ORDERABLES Theresa l Result Performing Organization Address City/[facility]/ZIP Co de Phone Number [facility] [address] [place] [address] * C-Reactive Protein, Plasma (02/20/2025 10:34 AM EST) CRP, Plasma 4.9 <=8.0 mg/L 02/20/2025 12:[address] [facility] Blood Venous blood specimen / Unknown Venipuncture / Unknown 02/20/2025 10:34 AM EST 02/20/2025 10:[address] [facility] - 02/20/2025 12:21 PM EST This CRP test is appropriate for assessment of infection, systemic inflammation and/or tissue injury. To assess cardiovascular disease risk order high sensitivity CRP (CRPH). [facility] BLOOD ORDERABLES Theresa l Result [facility] [address] [place] [address] * (ABNORMAL) Comprehensive Metabolic Panel, Plasma (02/20/2025 10:34 AM EST) Glucose, Plasma 98 74 - 99 mg/dL 02/20/2025 12:[address] [facility] BUN, Plasma 10 7 - 21 mg/dL 02/20/2025 12:21 PM [facility] Creatinine, Plasma 0.92 0.70 - 1.20 mg/dL 02/20/2025 12:21 PM [facility] BUN/Creatinine Ratio 11 02/20/2025 12:21 PM [facility] Sodium, Plasma 138 136 - 145 mmol/L 02/20/2025 12:21 PM [facility] Potassium, Plasma 4.4 3.6 - 4.9 mmol/L 02/20/2025 12:21 PM [facility] Chloride, Plasma 102 97 - 107 mmol/L 02/20/2025 12:21 PM [facility] CO2, Plasma 28 22 - 29 mmol/L 02/20/2025 12:21 PM [facility] Anion Gap 8 6 - 16 mmol/L 02/20/2025 12:21 PM [facility] Total Calcium, Plasma 9.7 8.9 - 10.2 mg/dL 02/20/2025 12:21 PM [facility] Total Protein 7.7 6.3 - 7.9 g/dL 02/20/2025 12:21 PM [facility] Albumin, Plasma 4.7 3.5 - 5.2 g/dL 02/20/2025 12:21 PM [facility] AST, Plasma 36 10 - 50 U/L 02/20/2025 12:21 PM [facility] ALT, Plasma 54(H) 10 - 50 U/L 02/20/2025 12:21 PM [facility] Alkaline Phosphatase, Plasma 122(H) 40 - 115 U/L 02/20/2025 12:21 PM [facility] Total Bilirubin, Plasma 0.7 0.2 - 1.1 mg/dL 02/20/2025 12:21 PM [facility] eGFRcr 107.8 mL/min/1.7 3m*2 02/20/2025 12:21 PM [facility] Comment:Reported eGFRcr in m L/min/1.73m2 is based the CKD-EPI 2020 equation that does not use a race coefficient. Blood Venous blood specimen / Unknown Venipuncture / Unknown 02/20/2025 10:34 AM EST 02/20/2025 10:35 AM EST [facility] BLOOD ORDERABLES Theresa hernandez Result [facility] [address] [place] [address] * (ABNORMAL) CBC and Differential (02/20/2025 10:34 AM EST) WBC Count 12.36(H) 3.70 - 10.30 10*3/uL LAB HEMATOLOGY METHOD 02/20/2025 11:[address] [facility] RBC Count 5.49 4.60 - 6.10 10*6/uL LAB HEMATOLOGY METHOD 02/20/2025 11:[address] [facility] HGB 18.0(H) 13.7 - 17.5 g/dL LAB HEMATOLOGY METHOD 02/20/2025 11:[address] [facility] HCT 52.3(H) 40.0 - 51.0 % LAB HEMATOLOGY METHOD 02/20/2025 11:[address] [facility] Platelet Count 388(H) 155 - 369 10*3/uL LAB HEMATOLOGY METHOD 02/20/2025 11:[address] [facility] MCV 95 79 - 98 fL LAB HEMATOLOGY METHOD 02/20/2025 11:[address] [facility] MCH 32.8(H) 26.0 - 32.0 pg LAB HEMATOLOGY METHOD 02/20/2025 11:[address] [facility] MCHC 34.4 30.7 - 35.5 g/dL LAB HEMATOLOGY METHOD 02/20/2025 11:[address] [facility] RDW 12.5 11.5 - 14.5 % LAB HEMATOLOGY METHOD 02/20/2025 11:[address] [facility] MPV 10.4 8.8 - 12.5 fL LAB HEMATOLOGY METHOD 02/20/2025 11:[address] [facility] nRBC 0.0 <=0.0 per 100 WBCs LAB HEMATOLOGY METHOD 02/20/2025 11:[address] [facility] Differential Type Automated LAB HEMATOLOGY METHOD 02/20/2025 11:[address] [facility] Neutrophils % 60 % LAB HEMATOLOGY METHOD 02/20/2025 11:[address] [facility] Lymphocytes % 26 % LAB HEMATOLOGY METHOD 02/20/2025 11:59 AM [facility] Monocytes % 8 % LAB HEMATOLOGY METHOD 02/20/2025 11:59 AM EST [facility] Eosinophils % 4 % LAB HEMATOLOGY METHOD 02/20/2025 11:[address] [facility] Basophils % 1 % LAB HEMATOLOGY METHOD 02/20/2025 11:[address] [facility] Immature Granulocytes % 1 % LAB HEMATOLOGY METHOD 02/20/2025 11:[address] [facility] Neutrophils Absolute 7.51(H) 1.60 - 6.10 10*3/uL LAB HEMATOLOGY METHOD 02/20/2025 11:[address] [facility] Lymphocytes Absolute 3.21 1.20 - 3.90 10*3/uL LAB HEMATOLOGY METHOD 02/20/2025 11:[address] [facility] Monocytes Absolute 1.02(H) 0.30 - 0.90 10*3/uL LAB HEMATOLOGY METHOD 02/20/2025 11:[address] [facility] Eosinophils Absolute 0.46 0.00 - 0.50 10*3/uL LAB HEMATOLOGY METHOD 02/20/2025 11:[address] [facility] Basophils Absolute 0.10 0.00 - 0.10 10*3/uL LAB HEMATOLOGY METHOD 02/20/2025 11:[address] [facility] Immature Granulocytes Absolute 0.06 0.00 - 0.06 10*3/uL LAB HEMATOLOGY METHOD 02/20/2025 11:[address] [facility] Blood Venous blood specimen / Unknown Venipuncture / Unknown 02/20/2025 10:34 AM EST 02/20/2025 10:35 AM [facility] 02/20/2025 11:59 AM EST Therapeutic decision making should be based on absolute values, rather than percentages. us [facility] BLOOD ORDERABLES Theresa hernandez Result [facility] [address] [place] [address] * Protein, Random, Urine with Creatinine (02/20/2025 10:30 AM EST) Protein, Urine <6 mg/dL 02/20/2025 12:[address] [facility] Creatinine, Urine 96 mg/dL 02/20/2025 12:[address] [facility] Protein/Creatin ine Ratio 02/20/2025 12:[address] [facility] Urine Urine specimen obtained by clean catch procedure / Unknown Non-blood Collection / Unknown 02/20/2025 10:30 AM EST 02/20/2025 10:30 AM EST us [facility] URINE ORDERABLES Theresa hernandez Result [facility] [address] [place] [address] documented in this encounter Visit Diagnoses Diagnosis Seronegative rheumatoid arthritis of multiple sites (CMS/HCC)- Primary Inflammatory polyarthropathy (CMS/HCC) Unspecified inflammatory polyarthropathy Pyoderma gangrenosum SS-B antibody positive Abnormal CXR Nonspecific (abnormal) findings on radiological and other examination of lung field High risk medication use Seronegative rheumatoid arthritis of multiple sites (CMS/HCC) documented in this encounter Additional Health Concerns Assessment Noted Time PHQ-9 Depression Total Score: 0 02/21/20 8:28 AM EST A fall risk assessment has been complete d for the patient 02/20/2025 8:28 AM EST A Body Mass Index follow-up plan has been documented for the patient 02/20/2025 10:08 AM EST documented as of this encounter Care Teams Assurance Senior Manager Insurance Relationship Specialty Start Date End Date Loulou Coulter PA [address] [place] [address] PCP - General 02/05/25 Taras Monreal DDS [address] [place] [address] Dentist Dentist 11/02/23 Juan Ochoa Dentist 11/02/23 documented as of this encounter
--- OUTSIDE RECORDS SUMMARY | 2025-02-20 10:38 | XMS_ITS | Encounter Summary ---
Author Organization Healthcare Address [address] [address] Care Team Providers Care Vice President Of Academic Affairs Name Role Phone Taras Monreal DDS Unavailable [phone] Juan Ochoa Unavailable Unavailable Loulou Coulter Primary Care Provider [phone] Encounter Details Date Type Department Care Team (Latest Contact Info) Description 02/20/2025 10:38 AM EST - 02/20/2025 11:59 PM EST Hospital Encounter [facility] [address] [address] Seronegative rheumatoid arthritis of multiple sites ([facility]) Discharge Disposition: Home or Self Care Social History Tobacco Use Types Packs/Day Years Used Date Smoking Tobacco: Every Day Cigarettes 1 Started: 1999 Smokeless Tobacco: Never Alcohol Use [...] on file documented as of this encounter Functional Status * Over the past 2 weeks, how often have you been bothered by any of the following problems? Question Answer Date of Assessment Author Little interest or pleasure in doing things Not at all 02/20/2025 8:28 AM EST Elliot William Feeling down, depressed, or hopeless Not at all 02/20/2025 8:28 AM Elliot Stoner Patient Health Questionnaire -2 Score 0 02/20/2025 8:28 AM Elliot Stoner * Question Answer Date of Assessment Author Trouble falling or staying a sleep, or sleeping too much Not at all 02/20/2025 8:28 AM Elliot Stoner Feeling tired or having luna le energy Not at all 02/20/2025 8:28 AM Elliot Stoner Poor appetite or overeating Not at all 02/20/2025 8: 28 AM Elliot Stoner Feeling bad about yourself [...] Not at all 02/20/2025 8:28 AM Elliot tSoner Thoughts that you would be b natalie [...] Elliot Gonzalez documented as of this encounter Medications at Time of Discharge cholecalciferol (Vitamin D3) 200 Unit tablet split tablet 1 (one) time each day. 04/12/2023 desvenlafaxine (Pristiq) 50 MG 24 hr tablet 1 tablet (50 mg). 12/20/2022 ergocalciferol 1.25 MG ([address] [place]) capsule 09/20/2023 methylphenidate (Ritalin) 20 MG tablet 1 tablet (20 mg). 03/31/2023 Adalimumab (Humira, 2 Pen,) 40 MG/0.8ML Auto-injector KitIndications:Se ronegative rheumatoid arthritis of multiple sites (CMS/HCC) Inject 1 each under the skin every 14 days. 2 each 5 02/26/2025 02/26/2025 Adalimumab-atto (Amjevita) 40 MG/0.4ML solution auto-injectorIndi cations:Seronegat aniyah rheumatoid arthritis of multiple sites (CMS/HCC) Inject 40 mg under the skin every 14 days. 0.8 mL 5 02/26/2025 02/26/2025 documented as of this encounter Plan of Treatment Upcoming Encounters Date Type Department Care Team (Late st Contact Info) Description 06/26/2025 9:00 AM EDT Office Visit [facility] Medicine Specialties [address] [address] Soco Hein PA [address] [phone] documented as of this encounter Procedures Procedure Name Priority Date/Time Associated Diagnosis Comments XR HAND WRIST BILATERAL 2 VIEWS Routine 02/20/2025 11:18 AM EST Seronegative rheumatoid arthritis of multiple sites (CMS/HCC) documented in this encounter Results * XR Hand and [...] [facility] XR PROCEDURES Final R esult documented in this encounter Visit Diagnoses Diagnosis Seronegative rheumatoid arthritis of multiple sites (CMS/HCC) [...] documented as of this encounter Care Teams Vice President Of Academic Affairs Relationship Specialty Start Date End Date Loulou Coulter PA [address] [place] [address] PCP - General 02/05/25 Taras Monreal DDS [address] [phone] Dentist Dentist 11/02/23 Juan Ochoa Dentist 11/02/23 documented as of this encounter
--- NOTE | 2025-04-05 01:08 | HMH.EDGENADL ---
Discharge Plan Disposition Chief Complaint: Wound/Laceration Prescriptions Prescriptions: No Action pregabalin [Lyrica] 75 mg capsule 75 mg PO HS Qty: 30 5RF methylphenidate HCl 20 mg tablet 20 mg PO BID 30 Days Qty: 60 0RF cholecalciferol (vitamin D3) 50 mcg (2,000 unit) capsule 50 mcg PO DAILY Qty: 90 3RF desvenlafaxine succinate [Pristiq] 50 mg tablet extended release 24 hr 50 mg PO DAILY Qty: 90 2RF ergocalciferol (vitamin D2) 1,250 mcg (50,000 unit) capsule 1,250 mcg PO WEEKLY Qty: 14 3RF doxycycline hyclate 100 mg capsule 100 mg PO BID 5 Days Qty: 10 0RF oxycodone 5 mg tablet 5 mg PO DAILY Qty: 6 0RF Referrals Follow up/Referrals: Loulou Coulter PA [Primary Care Provider, Medical] - See instructions Clinical Impressions Clinical Impression: Cellulitis, Pyoderma gangrenosum Instructions Patient Instructions: DI for Laceration Repair Print Language Print Language: Kinyarwanda Discharge ED Provider: Ramírez Graham General Adult HPI General Chief complaint: Wound/Laceration Stated complaint: leg ulcer, possibly infected Time Seen by Provider: 04/05/25 01:00 History of Present Illness HPI narrative: 39-year-old male with history of pyoderma gangrenosum, obesity presents for worsening wound on his right leg. The wound has been there for approximately 18 months. He has been diagnosed with pyoderma gangrenosum. He has been on Humira for the last 6 weeks, has received 2 doses. He has tried oral steroids in the past. He is here tonight because the wound is acutely worsening. Over the last few days has been getting worse and then over the last day it is significantly worse he is having redness and pain that is extending out beyond the wound margins, and the wound margins are increased. He denies fever at home. He gets [facility] at [facility] as well as at the [facility]. He is being cared for by rheumatology at the [facility]. Related Data Previous Rx's ?Medication ?Instructions ?Recorded methylphenidate HCl 20 mg tablet 20 mg PO BID 30 days #60 tabs 10/16/23 cholecalciferol (vitamin D3) 50 50 mcg PO DAILY #90 caps 10/08/24 mcg (2,000 unit) capsule desvenlafaxine succinate 50 mg 50 mg PO DAILY #90 tabs 01/23/24 tablet,extended release 24 hr (Pristiq) ergocalciferol (vitamin D2) 1,250 1,250 mcg PO WEEKLY #14 caps 01/23/24 mcg (50,000 unit) capsule pregabalin 75 mg capsule (Lyrica) 75 mg PO HS #30 caps 12/09/24 doxycycline hyclate 100 mg capsule 100 mg PO BID 5 days #10 caps 12/15/24 oxycodone 5 mg tablet 5 mg PO DAILY #6 tabs 12/15/24 Allergies Allergy/AdvReac Type Severity Reaction Status Date / Time penicillin G (PENICILLIN G) Allergy Mild Verified 12/12/24 13:22 Sulfa (Sulfonamide Allergy Mild Verified 12/12/24 13:22 Antibiotics) (SULFA (SULFONAMIDE ANTIBIOTICS)) cariprazine (From Vraylar) AdvReac Anxiety Verified 12/12/24 13:22 [facility] Disclaimer: The information contained in this section may have been updated after the patient was seen, as this information can be updated by other users. Medical History STEPHANIE (obstructive sleep apnea) Mild STEPHANIE, symptomatic improvement on CPAP at 10 cm in combination with vitamin D replacement by PCP, CPAP compliance equal or >4 hours remains suboptimal. Depression Family History Other Cancer Diabetes Stroke Social History Smoking Status: Current every day smoker tobacco type: cigarettes packs per day: 1 alcohol intake: current alcohol intake frequency: holidays/special occasions only substance use type: denies use current occupational status: employed Travel in the last 8 weeks?: None household members: family housing: house marital status: Have you lived/traveled outside US in past 30 days?: No Contact w/someone who lives/traveled outside US past 30 days?: No Exposure to someone with infectious disease in past 14 days?: No Do you have a fever (greater than 100.4 F or 38 C)?: No Have you tested positive for COVID-19?: No Exposed to someone with COVID-19 in past 14 days?: No Do you have a sore throat?: No Do you have a cough?: No Do you have any weakness?: No Do you have any diarrhea?: No Are you experiencing any unusual bleeding?: No Do you have any muscle aches/pain?: No Do you have any abdominal pain?: No Are you experiencing loss of taste or smell?: No Other Medical History Have you received the Flu Vaccine for this season: Yes Have you received the Pneumonia Vaccine: No ROS Obtained: Yes All systems reviewed & no additional complaints except as documented Physical Exam General General appearance: alert and in no apparent distress Head Head exam: atraumatic and normocephalic Eye Eye exam: Present normal appearance, PERRL and EOMI ENT ENT exam: Present normal oropharynx and normal external ear exam Neck Neck exam: Present normal inspection and full ROM Chest Chest inspection: Present normal inspection and symmetric chest wall rise; Absent tenderness Respiratory Respiratory exam: Present normal lung sounds bilaterally; Absent respiratory distress Cardiovascular Cardiovascular exam: Present regular rate and normal rhythm Abdominal Exam Abdominal exam: Present soft; Absent distention, tenderness or guarding Extremities Exam Extremities exam: Present other (Large circular wound on the lateral aspect of the mid right lower leg, exposed muscle tissue noted. Surrounding erythema and mild induration noted with significant tenderness to palpation); Absent edema or joint swelling Back Exam Back exam: Present normal inspection; Absent tenderness Neurological Exam Neurological exam: Present alert and oriented X3; Absent motor sensory deficit Psychiatric Psychiatric exam: Present normal affect and normal mood Skin Skin exam: Present warm, dry and normal color Lymphatic Lymphatic Findings: no adenopathy Medical Decision Making Medical Records Medical records reviewed: Yes I reviewed the patient's medical records. Screening: Per USPSTF and CDC recommendations, given the prevalence of disease in our region, it is our hospital?s policy to screen for HIV and viral Hepatitis for all patients aged 18 and over and those with ongoing risk factors. David Inquiry Pt receiving controlled substance: No David was queried for this patient: No Vital Signs: 04/05/25 01:10 04/05/25 01:18 Temperature 98.9 F 98.7 F Temperature Source Oral Pulse Rate 86 Pulse Rate [Right] 86 Respiratory Rate 18 18 Blood Pressure 153/90 H Blood Pressure [Right Arm] 153/90 H Blood Pressure Mean [Right Arm] 111 02 Sat by Pulse Oximetry 98 98 Oxygen Delivery Method Room Air Room Air Lab Data Lab results reviewed: Yes I reviewed the patient's lab results. Lab Results 04/05/25 01:04: WBC 13.2 H, RBC 5.27, Hgb 17.4, Hct 50.8, MCV 96.4 H, MCH 33.0 H, MCHC 34.3, RDW 12.7, Plt Count 332, MPV 10.4, Neut % (Auto) 49.2, Lymph % (Auto) 33.9, [place] % (Auto) 11.3 H, Eos % (Auto) 4.2, Baso % (Auto) 0.9, Neut # (Auto) 6.5, Lymph # (Auto) 4.5, [place] # (Auto) 1.5 H, Eos # (Auto) 0.6 H, Baso # (Auto) 0.1, ESR 1, Sodium 137, Potassium 3.9, Chloride 100, Carbon Dioxide 30, Anion Gap 10.9, BUN 16, Creatinine 1.10, Estimated Creat Clear 178, Estimated GFR 74, Est GFR ( Amer) 90, Glucose 113 H, Calcium 9.3, Total Bilirubin 0.7, AST 40, ALT 74, Alkaline Phosphatase 125, C-Reactive Protein 4.8 H, Total Protein 8.2, Albumin 4.8, Globulin 3.4 H, Albumin/Globulin Ratio 1.4 04/05/25 01:04 04/05/25 01:04 Orders (Tests/Meds): ED MEDICATIONS Generic Name Dose Route Start Last Admin Trade Name Freq PRN Reason Stop Dose Admin Miscellaneous 1 each 04/05/25 01:15 Vancomycin Consult Request NOTAPPLIC 05/05/25 01:14 CONSULT PHARMACY [facility] Discontinued Medications Generic Name Dose Route Start Last Admin Trade Name Freq PRN Reason Stop Dose Admin Acetaminophen 1,000 mg 04/05/25 01:23 04/05/25 01:29 Acetaminophen 500mg Tab PO 04/05/25 01:24 1,000 mg ONCE ONE Administration Hydromorphone HCl 1 mg 04/05/25 01:33 04/05/25 01:37 Hydromorphone 2mg/Ml Syringe IV 04/05/25 01:34 1 mg ONCE ONE Administration Hydromorphone HCl 1 mg 04/05/25 02:17 04/05/25 02:19 Hydromorphone 2mg/Ml Syringe IV 04/05/25 02:18 1 mg ONCE ONE Administration Cefepime HCl 2 gm/ Sodium 100 mls @ 200 mls/hr 04/05/25 01:09 04/05/25 02:36 Chloride IV 04/05/25 01:38 Infused ONCE ONE Infusion Clindamycin Phosphate 900 mg in 50 mls @ 100 mls/hr 04/05/25 01:10 04/05/25 02:35 Clindamycin 900mg/50ml D5w Premix IV 04/05/25 01:39 Infused ONCE ONE Infusion Vancomycin HCl 2,500 mg/ 500 mls @ 250 mls/hr 04/05/25 01:30 04/05/25 02:17 Sodium Chloride IV 04/05/25 03:29 250 mls/hr ONCE ONE Administration Ketorolac Tromethamine 30 mg 04/05/25 01:23 04/05/25 01:29 Ketorolac 30mg/Ml Vial IV 04/05/25 01:24 30 mg ONCE ONE Administration Morphine Sulfate 4 mg 04/05/25 01:23 04/05/25 01:34 Morphine 4mg/Ml Syringe IV 04/05/25 01:24 Not Given ONCE ONE Ondansetron HCl 4 mg 04/05/25 01:23 04/05/25 01:29 Ondansetron 4mg/2ml Vial IV 04/05/25 01:24 4 mg ONCE ONE Administration ORDERS Category Date Time Status CBC w/Auto Diff [Complete Blood Count Auto Diff] Stat Lab 04/05/25 01:04 Completed CMP [Comprehensive Metabolic Panel] Stat Lab 04/05/25 01:04 Completed CRP [C-Reactive Protein] Stat Lab 04/05/25 01:04 Completed ESR [Erythrocyte Sedimentation Rate] Stat Lab 04/05/25 01:04 Completed Blood Culture Stat Micro 04/05/25 01:10 Received Wound Culture and Gram Stain Stat Micro 04/05/25 01:08 Received Medical Decision Narrative: 39-year-old male with history of pyoderma gangrenosum presents for worsening right lower extremity wound. History was obtained via interactive discussion with patient, patient's , chart review. On arrival, patient is [afebrile, hemodynamically stable, satting appropriately, alert, oriented x4, GCS 15], moving all extremities spontaneously. Full physical exam performed and significant for Large circular wound on the lateral aspect of the mid right lower leg, exposed muscle tissue noted. Surrounding erythema and mild induration noted with significant tenderness to palpation. No crepitus. Normal cap refill. Erythema and tenderness extends partially up to the calf. Wound is enlarging in size over the last few days per family. Differential includes but is not limited to pyoderma gangrenosum, cellulitis, abscess, necrotizing fasciitis. At this time it does not appear consistent with a necrotizing infection. Patient does not appear to be septic. Patient was given vancomycin, cefepime and clindamycin for empiric coverage. He was given Tylenol Toradol and Dilaudid for pain control. Workup initiated including CBC CMP ESR CRP wound culture blood cultures. On re-evaluation, patient [remains afebrile, HD stable.] Laboratory workup independently interpreted by me and significant for leukocytosis with white count of 13.2 normal ESR and CRP. No significant derangements on chemistry. Given patient history, exam and workup, patient's presentation most likely represents acutely worsening pyoderma gangrenosum with secondary cellulitis. Given the significant worsening of the wound over the several weeks as well as the rapid progression of the surrounding cellulitis over the last day, I think patient requires a higher level of care to determine the best treatment regimen in the setting of his autoimmune condition. We called several hospitals and patient is ultimately accepted by the [facility] and Dr. Swain and he will be transferred to the ER. Procedures Risk/Benefits of Procedure(s) Were Explained: Yes Critical Care Critical Care Time Critical Care Time: No
[2025-04-05 01:10] VITALS: BP 153/90; PULSE 86; RESP 18; TEMP 37.2; O2SAT 98; BMI 35.8
[2025-04-05 01:18] VITALS: BP 153/90; PULSE 86; RESP 18; TEMP 37.1; O2SAT 98
--- OUTSIDE RECORDS SUMMARY | 2025-04-05 01:19 | XMS_ITS | Encounter Summary ---
Author Organization Healthcare Address [address] [place] [address] Care Team Providers Care Beef Grinder Name Role Phone DannyChantal Austin IBLL Primary Care Provider [phone] Taras Monreal DDS Unavailable [phone] [place], Mridul Unavailable Unavailable Loulou Coulter Primary Care Provider [phone] Reason for Referral * Consultation (Routine) - Closed Specialty Diagnoses / Procedures Referred By David t Referred To Contact Dentist / Pain Medicine Diagnoses Obstructive sleep apnea (adult) (pediatric) Shellie Warner MD [address] [place] [address] [place] [address] Phone: tel: fax: Ambika Haney, DDS [address] [place] [address] Phone: tel: fax: Referral ID Status Reason Start Date Expiration Date Visits Re quested Visits Authorized [id number] Closed 09/26/2023 03/27/2025 1 1 Encounter Details Date Type Department Care Team (Late st Contact Info) Description 09/26/2023 [facility] [address] [place] [address] Shellie Warner MD [address] [place] [address] Obstructive sleep [...] Description 06/26/2025 9:00 AM EDT Office Visit [facility] [address] [place] [address] Soco Hein PA [address] [place] [address] Scheduled Referrals Name Type Priority Associated Diagnoses Order Schedule Ambulatory Referral to Orofacial Pain Outpatient Referral Routine Obstructive sleep apnea (adult) (pediatric) Expected: 09/26/2023 (Approximate), Expires: 03/27/2025 documented as of this encounter Visit Diagnoses Diagnosis Obstructive sleep apnea (adult) (pediatric)- Primary documented in this encounter Care Teams Beef Grinder Relationship Specialty Start Date End Date Chantal Delgado APRN PCP - General 08/28/20 02/04/25 Loulou Coulter PA [address] [place] [id number] PCP - General 02/05/25 Taras Monreal DDS [address] [place] [address] Dentist Dentist 11/02/23 Juan Ochoa Dentist 11/02/23 documented as of this encounter
--- OUTSIDE RECORDS SUMMARY | 2025-04-05 01:19 | XMS_ITS | Encounter Summary ---
Author Organization Healthcare Address [address] [place] [address] Care Team Providers Care Evp Name Role Phone Taras Monreal DDS Unavailable [phone] Juan Ochoa Unavailable Unavailable Loulou Coulter Primary Care Provider [phone] Encounter Details Date Type Department Care Team (Latest Contact Info) Description 02/20/2025 Travel Social History Tobacco Use Types Packs/Day [...] things Not at all 02/20/2025 8:28 AM Elliot Stoner Feeling down, depressed, or hopeless Not at [...] Not difficult at all 02/20/2025 8:28 AM EST Elliot Yan documented as of this encounter Plan of Treatment Upcoming Encounters Date Type Department Care Team (Late st Contact Info) Description 06/26/2025 9:00 AM EDT Office Visit [facility] [address] [place] [address] Soco Hein PA [address] [place] [address] documented as of this encounter Visit Diagnoses Not on filedocumented in this encounter Additional Health Concerns Assessment Noted Time PHQ-9 Depression Total Score: 0 02/21/20 8:28 AM EST A fall risk assessment has been complete d for the patient 02/20/2025 8:28 AM EST A Body Mass Index follow-up plan has been documented for the patient 02/20/2025 10:08 AM EST documented as of this encounter Care Teams Evp Relationship Specialty Start Date End Date Loulou Coulter PA [address] [place] [address] PCP - General 02/05/25 Taras Monreal DDS [address] [place] [address] Dentist Dentist 11/02/23 Juan Ochoa Dentist 11/02/23 documented as of this encounter
--- OUTSIDE RECORDS SUMMARY | 2025-04-05 01:19 | XMS_ITS | Encounter Summary ---
Author Organization [facility] Address [address] [place] [address] Care Team Providers Care Form Coverer Name Role Phone Taras Monreal DDS Unavailable [phone] Juan Ochoa Unavailable Unavailable Loulou Coulter Primary Care Provider [phone] Encounter Details Date Type Department Care Team (Late st Contact Info) Description 02/26/2025 Results Follow-Up [facility] [address] [place] [id number] Soco Hein PA [address] [place] [address] Social History Tobacco Use Types Packs/Day Years Used Date Smoking Tobacco: Every Day Cigarettes 1 26 Started: 1999 Smokeless Tobacco: Never Alcohol Use [...] Description 06/26/2025 9:00 AM EDT Office Visit [facility] [address] [place] [address] Soco Hein PA [address] [place] [address] documented as of this encounter Visit Diagnoses Not on filedocumented in this encounter Additional Health Concerns Assessment Noted Time PHQ-9 Depression Total Score: 0 02/21/20 25 8:28 AM EST A fall risk assessment has been complete d for the patient 02/20/2025 8:28 AM EST A Body Mass Index follow-up plan has been documented for the patient 02/20/2025 10:08 AM EST documented as of this encounter Care Teams Form Coverer Relationship Specialty Start Date End Date Loulou Coulter PA [address] [facility] [place] [address] PCP - General 02/05/25 Taras Monreal DDS [address] [place] [address] Dentist Dentist 11/02/23 Juan Ochoa Dentist 11/02/23 documented as of this encounter
--- OUTSIDE RECORDS SUMMARY | 2025-04-05 01:19 | XMS_ITS | Clinical Summary ---
[facility] Address [address] [place] [address] Care Team Providers Care Automatic Lehr Operator Name Role Phone Loulou Coulter Primary Care Provider [phone] Social History Tobacco Use Types Packs/Day Years Used Date Smoking Tobacco: Never Assessed Sex and Gender Information Value Date Recorded Sex Assigned at Not on file Legal Sex Male 12:27 PM EDT Gender Identity Not on file Sexual Orientation Not on file Plan of Treatment Health Maintenance Due Date Last Done Comments ANNUAL PHYSICAL 1984 HEPATITIS C SCREENING 1984 INFLUENZA VACCINE 11/15/2024 TDAP/TD VACCINES (2 - Td or Tdap) 01/05/2028 018 Pneumococcal Vaccine 0-49 Aged Out No longer eligible based on patient's age to complete this topic Insurance [facility] Care Teams Automatic Lehr Operator Relationship Specialty Start Date End Date Loulou Coulter PA [address] [place], [place] [id number] PCP - General Physician Paper Sealer 11/05/24
--- OUTSIDE RECORDS SUMMARY | 2025-04-05 01:19 | XMS_ITS | Clinical Summary ---
Author Organization [facility] Address [address] [place] [address] Care Team Providers Care Mushroom Spawn Maker Name Role Phone Cyndi Crews Dr Primary Care Provider Unavailabl e Social History Tobacco Use Types Packs/Day Years Used Date Smoking Tobacco: Never Assessed Sex and Gender Information Value Date Recorded Sex Assigned at Not on file Legal Sex Male 9:15 AM EST Gender Identity Not on file Sexual Orientation Not on file Plan of Treatment Health Maintenance Due Date Last Done Comments HIV Screening 1984 Hepatitis C Screening 1984 Lipid Panel 1984 MMR Vaccines (1 of 1 - Stand carmela series) 1985 Varicella Vaccines (1 of 2 - 13+ 2-dose series) 1997 Hepatitis B Screening 2002 DTaP/Tdap/Td Vaccines (1 - Tdap) 2003 Hepatitis B Vaccines (1 of 3 - 19+ 3-dose series) 2003 HPV Vaccines (1 - 3-dose SCD M series) 2011 Depression Risk Screening 04/17/2024 SDOH Screening 04/17/2024 COVID-19 Vaccine (2 - 2024-2 6 season) 2024 09/18/2020 Influenza Vaccine (#1) 2024 Zoster Vaccines (1 of 2) 2034 HIB Vaccines Aged Out No longer eligi ble based on patient's age to complete this topic Hepatitis A Vaccines Aged Out No long er eligible based on patient's age to complete this topic IPV Vaccines Aged Out No longer eligi ble based on patient's age to complete this topic Meningococcal B Vaccine Aged Out No l onger eligible based on patient's age to complete this topic Meningococcal Vaccine Aged Out No jennifer hyacinth eligible based on patient's age to complete this topic Pneumococcal Vaccine Aged Out No long er eligible based on patient's age to complete this topic Rotavirus Vaccines Aged Out No longer eligible based on patient's age to complete this topic Insurance [facility] Care Teams Mushroom Spawn Maker Relationship Specialty Start Date End Date Cyndi Crews Dr. PCP - General 02/15/25
--- OUTSIDE RECORDS SUMMARY | 2025-04-05 01:19 | XMS_ITS | Continuity of Care Document ---
Author Organization [place] [facility] Address [address] [place] [address] Assessment No assessment recorded. Plan of Treatment Reminders Order Date Submit Date Provider Last Modified By Organization Details Last Modified Time Details Appointments None recorded. Lab unlisted lab - toxassure flex 19, [id number] 2024 025 MENAHGA [facility], [address] [place] [address], [place], [address], 02:07:01 Referral burn referral [address] [facility], [address] [place] [address], [address], 5 10:43:26 Procedures None recorded. Surgeries None recorded. Imaging None recorded. Medication Orders None recorded. Patient TargetsNo targets recorded. Patient Instructions Encounter Date Encounter Id Patient Instructions Last Modified By Organization Details Last Modified Time 02/06/2025 [id number] attention defici t hyperactivity disorder (ADHD) in adults: care instructions [email or web address] Not available 02/06/2025 17:52:22 sjogren's syndrome: care instructions [email or web address] Not available 02/06/2025 14:21:58 Reason for Referral Burn Referral for Pyoderma g angrenosum Referring Physician: Loulou Coulter, Family Medicine, Encounter Date: 02/06/2025 Results Created Date Observation Date Name Description Value Unit Range Abnormal Flag Note LastModifiedBy Organization Detail LastModifiedTime 02/07/2002/11/2025 TOXAS SURE FLEX 19, UR summary report FINAL ===== ===== ===== ===== ===== ===== ===== ===== ===== ===== ===== ===== ===== === ToxAs sure Flex 19, Ur Methy lphen idate , MS, Ur RFX ===== ===== ===== ===== ===== ===== ===== ===== ===== ===== ===== ===== ===== === Test Resul t Flag Units Drug Prese nt Methy lphen idate PRESE NT Rital inic Acid PRESE NT Sourc e of methy lphen idate is a sched uled presc ripti on medic ation . Rital inic acid is an expec eloise metab olite of methy lphen idate . Prega balin PRESE NT ===== ===== ===== ===== ===== ===== ===== ===== ===== ===== ===== ===== ===== === Test Resul t Flag Units Ref Range Creat inine 122 mg/dL >=20 ===== ===== ===== ===== ===== ===== ===== ===== ===== ===== ===== ===== ===== === Decla red Medic ation s: Medic ation list was not provi ded. ===== ===== ===== ===== ===== ===== ===== ===== ===== ===== ===== ===== ===== === For clini spring consu ltati on, pleas e call . ===== ===== ===== ===== ===== ===== ===== ===== ===== ===== ===== ===== ===== === Not Available [facility] ([facility]) [address] [place], [address], 02/11/2025 02:06:57 02/07/2002/11/2025 TOXAS SURE FLEX 19, UR pdf . Not Available [facility] ([facility]) [address] [place], [address], 02/11/2025 02:06:57 02/07/2002/11/2025 TOXAS SURE FLEX 19, UR creatinine 122 mg/dL >=20 REFER ENCE RANGE : Ref Range >=20 Not Available [facility] ([facility]) [address] [place], [address], 02/11/2025 02:06:57 02/07/2002/11/2025 TOXAS SURE FLEX 19, UR amphetamines ia Negati ve NG/mL cutoff :300 Not Available [facility] ([facility]) [address] [place], [address], 02/11/2025 02:06:57 02/07/2002/11/2025 TOXAS SURE FLEX 19, UR benzodiazepi jazzmine Negati ve Not Available [facility] ([facility]) [address] [place], [address], 02/11/2025 02:06:57 02/07/2002/11/2025 TOXAS SURE FLEX 19, UR diazepam Not Detect ed NG/mg _crea t Not Available [facility] ([facility]) [address] [place], [address], 02/11/2025 02:06:57 02/07/20 25 02/11/2025 TOXAS SURE FLEX 19, UR desmethyldia zepam Not Detect ed NG/mg _crea t Not Available [facility] ([facility]) [address] [facility], [place], [address], 02/11/2025 02:06:57 02/07/20 25 02/11/2025 TOXAS SURE FLEX 19, UR oxazepam Not Detect ed NG/mg _crea t Not Available [facility] ([facility]) [address] [facility], [place], [address], 02/11/2025 02:06:57 02/07/2002/11/2025 TOXAS SURE FLEX 19, UR temazepam Not Detect ed NG/mg _crea t Expec eloise metab olism of benzo diaze pine class drugs : Paren t Drug Detec eloise Metab olite s ----- ----- - ----- ----- ----- ----- Diaze deborah: Desme thyld iazep am, Temaz epam, Oxaze deborah Chlor diaze poxid e: Desme thyld iazep am, Oxaze deborah Clora zepat e: Desme thyld iazep am, Oxaze deborah Halaz epam: Desme thyld iazep am, Oxaze deborah Temaz epam: Oxaze deborah Oxaze deborah: None Not Available [facility] ([facility]) [address] [facility], [place], [address], 02/11/2025 02:06:57 02/07/20 25 02/11/2025 TOXAS SURE FLEX 19, UR alprazolam Not Detect ed NG/mg _crea t Not Available [facility] ([facility]) [address] [facility], [place], [address], 02/11/2025 02:06:57 02/07/20 25 02/11/2025 TOXAS SURE FLEX 19, UR alpha-hydrox yalprazolam Not Detect ed NG/mg _crea t Not Available [facility] ([facility]) [address] [place], [address], 02/11/2025 02:06:57 02/07/2002/11/2025 TOXAS SURE FLEX 19, UR desalkylflur azepam Not Detect ed NG/mg _crea t Not Available [facility] ([facility]) [address] [place], [address], 02/11/2025 02:06:57 02/07/2002/11/2025 TOXAS SURE FLEX 19, UR lorazepam Not Detect ed NG/mg _crea t Not Available [facility] ([facility]) [address] [place], [address], 02/11/2025 02:06:57 02/07/2002/11/2025 TOXAS SURE FLEX 19, UR alpha-hydrox ytriazolam Not Detect ed NG/mg _crea t Not Available [facility] ([facility]) [address] [place], [address], 02/11/2025 02:06:57 02/07/2002/11/2025 TOXAS SURE FLEX 19, UR clonazepam Not Detect ed NG/mg _crea t Not Available [facility] ([facility]) [address] [place], [address], 02/11/2025 02:06:57 02/07/2002/11/2025 TOXAS SURE FLEX 19, UR 7-aminoclona zepam Not Detect ed NG/mg _crea t Not Available [facility] ([facility]) [address] [place], [address], 02/11/2025 02:06:57 02/07/2002/11/2025 TOXAS SURE FLEX 19, UR midazolam Not Detect ed NG/mg _crea t Not Available [facility] ([facility]) [address] [place], [address], 02/11/2025 02:06:57 02/07/2002/11/2025 TOXAS SURE FLEX 19, UR alpha-hydrox ymidazolam Not Detect ed NG/mg _crea t Not Available [facility] ([facility]) [address] [place], [address], 02/11/2025 02:06:57 02/07/2002/11/2025 TOXAS SURE FLEX 19, UR flunitrazepa m Not Detect ed NG/mg _crea t Not Available [facility] ([facility]) [address] [place], [address], 02/11/2025 02:06:57 02/07/2002/11/2025 TOXAS SURE FLEX 19, UR desmethylflu nitrazepam Not Detect ed NG/mg _crea t Not Available [facility] ([facility]) [address] [place], [address], 02/11/2025 02:06:57 02/07/2002/11/2025 TOXAS SURE FLEX 19, UR cocaine metabolite ia Negati ve NG/mL cutoff :150 Not Available [facility] ([facility]) [address] [place], [address], 02/11/2025 02:06:57 02/07/2002/11/2025 TOXAS SURE FLEX 19, UR ethanol biomarkers ia Negati ve NG/mL cutoff :500 Not Available [facility] ([facility]) [address] [place] [address], [address], 02/11/2025 02:06:57 02/07/2002/11/2025 TOXAS SURE FLEX 19, UR cannabinoids ia Negati ve NG/mL cutoff :20 Not Available [facility] ([facility]) [address] [place], [address], 02/11/2025 02:06:57 02/07/20 25 02/11/2025 TOXAS SURE FLEX 19, UR 6-acetylmorp griselda ia Negati ve NG/mL cutoff :10 Not Available [facility] ([facility]) [address] [place] [address], [address], 02/11/2025 02:06:57 02/07/20 25 02/11/2025 TOXAS SURE FLEX 19, UR opiate class ia Negati ve NG/mL cutoff :100 Not Available [facility] ([facility]) [address] [place] [address], [address], 02/11/2025 02:06:57 02/07/2002/11/2025 TOXAS SURE FLEX 19, UR oxycodone class ia Negati ve NG/mL cutoff :100 Not Available [facility] ([facility]) [address] [place] [address], [address], 02/11/2025 02:06:57 02/07/20 25 02/11/2025 TOXAS SURE FLEX 19, UR methadone ia Negati ve NG/mL cutoff :100 Not Available [facility] ([facility]) [address] [place] [address], [address], 02/11/2025 02:06:57 02/07/20 25 02/11/2025 TOXAS SURE FLEX 19, UR methadone mtb ia Negati ve NG/mL cutoff :100 Not Available [facility] ([facility]) [address] [place] [address], [address], 02/11/2025 02:06:57 02/07/20 25 02/11/2025 TOXAS SURE FLEX 19, UR buprenorphin e ia Negati ve NG/mL cutoff :5.0 Not Available [facility] ([facility]) [address] [place] [address], [address], 02/11/2025 02:06:57 02/07/20 25 02/11/2025 TOXAS SURE FLEX 19, UR fentanyl ia Negati ve NG/mL cutoff :2.0 Not Available [facility] ([facility]) [address] [place], [address], 02/11/2025 02:06:57 02/07/20 25 02/11/2025 TOXAS SURE FLEX 19, UR tapentadol ia Negati ve NG/mL cutoff :200 Not Available [facility] ([facility]) [address] [place], [address], 02/11/2025 02:06:57 02/07/20 25 02/11/2025 TOXAS SURE FLEX 19, UR propoxyphene ia Negati ve NG/mL cutoff :300 Not Available [facility] ([facility]) [address] [place], [address], 02/11/2025 02:06:57 02/07/20 25 02/11/2025 TOXAS SURE FLEX 19, UR tramadol ia Negati ve NG/mL cutoff :200 Not Available [facility] ([facility]) [address] [place], [address], 02/11/2025 02:06:57 02/07/20 25 02/11/2025 TOXAS SURE FLEX 19, UR methylphenid ate ia COMMEN T NG/mL cutoff :100 Furth er testi ng indic ated Not Available [facility] ([facility]) [address] [place], [address], 02/11/2025 02:06:57 02/07/20 25 02/11/2025 TOXAS SURE FLEX 19, UR barbiturates ia Negati ve NG/mL cutoff :200 Not Available [facility] ([facility]) [address] [place], [address], 02/11/2025 02:06:57 02/07/20 25 02/11/2025 TOXAS SURE FLEX 19, UR phencyclidin e ia Negati ve NG/mL cutoff :25 Not Available [facility] ([facility]) [address] [place], [address], 02/11/2025 02:06:57 02/07/20 25 02/11/2025 TOXAS SURE FLEX 19, UR gabapentin ia Negati ve ug/mL cutoff :1.0 Not Available [facility] ([facility]) [address] [place], [address], 02/11/2025 02:06:57 02/07/2002/11/2025 TOXAS SURE FLEX 19, UR anticonvulsa nts +POSIT TOY+ Not Available [facility] ([facility]) [address] [place], [address], 02/11/2025 02:06:57 02/07/2002/11/2025 TOXAS SURE FLEX 19, UR pregabalin PRESEN T Not Available [facility] ([facility]) [address] [place], [address], 02/11/2025 02:06:57 02/07/2002/11/2025 TOXAS SURE FLEX 19, UR carisoprodol ia Negati ve NG/mL cutoff :100 Not Available [facility] ([facility]) [address] [place], [address], 02/11/2025 02:06:57 02/07/2002/11/2025 METHY LPHEN IDATE , MS, UR RFX sympathomime tics +POSIT TOY+ Not Available [facility] ([facility]) [address] [place], [address], 02/11/2025 02:07:02 02/07/2002/11/2025 METHY LPHEN IDATE , MS, UR RFX methylphenid ate PRESEN T Not Available [facility] ([facility]) [address] [place] [address], [address], 02/11/2025 02:07:02 02/07/2002/11/2025 METHY LPHEN IDATE , MS, UR RFX ritalinic acid PRESEN T Not Available [facility] ([facility]) [address] [facility], [place], [address], 02/11/2025 02:07:02 Result Notes None recorded. Problems Name Problem SNOMED Code Status Onset Date Resolution Date Notes Provider Name and Address Organization Details Recorded Time Attention deficit hyperactivity disorder 067679538 Active 2023 [address] Hoffmann [address] [place] [address], [address], [employer] 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 5 14:18:14 Nicotine dependence 48052422 Active 2023 ELIN Hoffmann [address] [place] [address], [address], [employer] 4 11:11:11 Depressive disorder 01817888 Active 2023 ELIN Hoffmann [address] [place] [address], [address], [employer] 4 11:11:07 Ulcer of lower extremity 93189826 Active 2024 ELIN Hoffmann [address] [place] [address], [address], [employer] 5 10:00:05 Mucous membrane dryness 734141896 Active 2024 Raphael Jeffers MD [address] [place] [address], [address], [employer] 5 10:06:29 Pyoderma gangrenosum 53647731 Active 2024 ELIN Hoffmann [address] [place] [address], [address] 8, [employer] 5 14:17:51 Mild depression 331534014 Active 2024 ELIN Hoffmann [address] [place], [address], [employer] 14:46:11 Vitamin D deficiency 15747038 Active 2024 ELIN Hoffmann [address] [place], [address], [employer] 14:46:17 Problem Notes None recorded. Medical Equipment None Reported. Allergies Allergen ID Allergen Name Allergen Category Reaction Reaction Severity Criticality Documentation Date Start Date Code Code System Note Provider Name and Address Organization Details Recorded Time 79024 Product containin g penicilli n (product) medicatio n other Not available Not available 03/07/2024 17866 8001 SNOMED Angella Vice null, [employer] 14:09:27 50572 Substance with sulfonami de structure and antibacte rial mechanism of action (substanc e) medicatio n other Not available Not available 03/07/2024 12617 8003 SNOMED Angella Vice null, [employer] 14:09:27 07960 penicilla mine medicatio n Not available Not available Not available 03/03/2025 7975 RxNorm Not Available [employer] - prod 17:53:54 31983 penicilli n G Not available anaphylax is Not available [facility] 03/03/20252022 7980 RxNorm Not Available [employer] - prod 17:59:12 Medications Name Sig Start Date Stop Date Status Note LastModified by Organization Details LastModified Time azithromyci n 250 mg tablet TAKE 2 TABLETS BY MOUTH ON DAY 1, THEN TAKE 1 TABLET DAILY ON DAYS 2-5 -- FINISH ALL MEDICINE -- 03/07 completed Not Available Not Available Not Available methylpheni date 20 mg tablet TAKE ONE TABLET BY MOUTH 2 TIMES A DAY 02/13 completed Not Available Not Available Not Available prednisone 20 mg tablet Take 1 tablet twice a day by oral route for 5 days. 01/01 completed Not Available Not Available Not Available prednisone 5 mg tablet TAKE 4 TABLETS BY MOUTH EVERY DAY FOR 5 DAYS THEN DECREASE BY 1 TABLET EVERY 5 DAYS UNTIL GONE 12/20 completed Not Available Not Available Not Available methotrexat e sodium 2.5 mg tablet TAKE 6 TABLETS BY MOUTH ONCE WEEKLY 02/06 completed Not Available Not Available Not Available dextroamphe tamine-amph etamine ER 20 mg 24hr capsule,ext end release TAKE 1 CAPSULE BY MOUTH ONCE A DAY 2024 active Not Available Not Available Not Avai lable benzonatate 100 mg capsule 03/07 completed Not Available Not Available Not Available doxycycline monohydrate 100 mg capsule Take 1 capsule twice a day by oral route for 10 days. 01/06 completed Not Available Not Available Not Available tacrolimus 0.03 % topical ointment 03/07 completed Not Available Not Available Not Available betamethaso ne dipropionat e 0.05 % topical cream APPLY TO THE AFFECTED AREA(S) ONCE A DAY active Not Available Not Available No t Available gabapentin 300 mg capsule TAKE 1 CAPSULE BY MOUTH 3 TIMES A DAY active Not Available Not Available No t Available folic acid 1 mg tablet TAKE 1 TABLET BY MOUTH ONCE A DAY 02/06 completed Not Available Not Available Not Available ergocalcife rol (vitamin D2) 1,250 mcg (50,000 unit) capsule TAKE 1 CAPSULE BY MOUTH ONCE WEEKLY active Not Available Not Available No t Available methylpredn isolone 4 mg tablets in a dose pack TAKE ACCORDING TO PACKAGE INSTRUCTI ONS --TAKE WITH FOOD-- -- FINISH ALL MEDICINE -- 03/07 completed Not Available Not Available Not Available betamethaso ne dipropionat e 0.05 % topical ointment 03/07 completed Not Available Not Available Not Available oxycodone 5 mg tablet TAKE 1 TABLET BY MOUTH EVERY 6 HOURS NEEDED FOR PAIN active Not Available Not Available No t Available pregabalin 75 mg capsule TAKE 1 CAPSULE BY MOUTH AT BEDTIME active Not Available Not Available No t Available desvenlafax ine succinate ER 50 mg tablet,exte nded release 24 hr TAKE 1 TABLET BY MOUTH ONCE A DAY active Not Available Not Available No t Available cholecalcif sunshine (vitamin D3) 50 mcg (2,000 unit) tablet 03/07 completed Not Available Not Available Not Available Vitamin D3 50 mcg (2,000 unit) capsule TAKE 1 CAPSULE BY MOUTH ONCE A DAY active Not Available Not Available No t Available MediHoney (honey) 80 % topical gel 12/20 completed Not Available Not Available Not Available Vitals Date Recorded Body height Body mass index (BMI) Body weight Oxygen saturation Heart rate Body temperature Systolic And Diastolic Provider Name and Address Organization Details Last Updated DateTime 198.12 cm 36.7 kg/m2 761481. 37 g 97 % 70 /min 98 [degF] 130/84 mm[Hg] Angella Baltazar [employer] 14:03:55 Social History Question Answer Notes LastModified by Organizat ion Details LastModified Time Tobacco Smoking Status Current Every Day Smoker Angella Baltazar ernestina, [employer] 03/07/2024 14:09:28 Do You Have An Advance Directive? No Information not available 03/07/2024 Is Your Home Air Conditioned? Yes Information not available 03/07/2024 How Many Years Have You Consumed Alcohol? 20 Information not available 03/07/2024 Do You Wear A Helmet When Biking? No Information not available 03/07/2024 Are You Blind Or Do You Have Difficulty Seeing? No Information not available 03/07/2024 What Is Your Level Of Caffeine Consumption? Heavy Information not available 03/07/2024 Are You A Caregiver? 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 [employer] Information not available 03/07/2024 Have You Been To An Area Known To Be High Risk For COVID-19? No Information not available 03/07/2024 Are You Deaf Or Do You Have Serious Difficulty Hearing? No Information not available 03/07/2024 What Type Of Diet Are You Following? REGULAR Information not available 03/07/2024 What Is The Highest Grade Or Level Of School You Have Completed Or The Highest Degree You Have Received? [id number] Information not available 03/07/2024 Who Is Your Employer? [employer] Information not available 03/07/2024 Have There Been Any Changes To Your Family Or Social Situation? No Information not available 03/07/2024 Are There Any Guns Present In Your Home? Yes Information not available 03/07/2024 Which Of Your Hands Is Dominant? Right Information not available 03/07/2024 Do You Engage In Moderate/heavy Exercise (e.g. Brisk Walk, Jogging, Strength Training, Etc)? No Information not available 02/06/2025 What Is Your Home Situation? Other Information not available 03/07/2024 Where Do You Live? SingleLevelHouse Information not available 02/06/2025 Do You Have A Medical Power Of Fisheries Officer? No Information not available 03/07/2024 What Was The Date Of Your Most Recent Tobacco Screening? 02/06/2025 Information not available 02/06/2025 Are There Any Occupational Health Risks Where You Work? No Information not available 03/07/2024 What Is Your Current Pack Years? 30ormorepackyears Information no t available 02/06/2025 Have You Ever Been Counseled For Unhealthy Alcohol Use? No Information not available 02/06/2025 Do You Have Any Pets? Yes Information not available 03/07/2024 Do You Use Protection During Sex? No Information not available 03/07/2024 What Is Your Relationship Status? Information not available 03/07/2024 Have You Repeated Any Grades? No Information not available 03/07/2024 Do You Wear A Seatbelt When Driving Or As A Passenger? Yes Information not available 02/06/2025 Do You Use Your Seat Belt Or Car Seat Routinely? Yes Information not available 03/07/2024 Are You Sexually Active? Yes Information not available 03/07/2024 Do You Have Any Siblings? No Information not available 03/07/2024 Do You Have Smoke And Carbon Monoxide Detectors In Your Home? Yes Information not available 03/07/2024 At What Age Did You Start Smoking Tobacco? 16 Information not available 03/07/2024 Are You Passively Exposed To Smoke? Yes Information not available 03/07/2024 Are There Any Smokers In Your House? Yes Information not available 03/07/2024 How Much Tobacco Do You Smoke? 1 PPD Information not available 03/07/2024 Do You Participate In Social Media? Yes Information not available 03/07/2024 Do You Use Sunscreen Routinely? No Information not available 03/07/2024 Has Tobacco Cessation Counseling Been Provided? Yes Information not available 02/06/2025 On What Date Was Tobacco Cessation Counseling Provided? 02/06/2025 Information not available 02/06/2025 How Many Years Have You Smoked Tobacco? 23 Information not available 02/06/2025 Have You Recently Traveled Abroad? No Information not available 03/07/2024 Do You Have Difficulty Walking Or Climbing Stairs? No Information not available 03/07/2024 Are You Currently In School? No Information not available 03/07/2024 Do You Feel Safe In Your Home? Yes Information not available 02/06/2025 Do You Have Any Dietary Restrictions? No Information not available 03/07/2024 How Many Days In The Past Year Have You Consumed 5 Or More Drinks? 5 Information not available 02/06/2025 Sex: Male Functional Status Question Answer Note LastModified by Organizat ion Details LastModified Time How many times per week do you consume alcohol? Less than 1 time per week Information not available 02/06/2025 Do you use any illicit or recreational drugs? No Information not available 03/07/2024 Do you feel safe in your relationship? Yes Information not available 02/06/2025 Do you or have you ever used any other forms of tobacco or nicotine? No Information not available 03/07/2024 What is your level of alcohol consumption? Occasional Information not available 03/07/2024 Are you currently employed? Yes Information not available 03/07/2024 Do you have transportation difficulties? No Information not available 03/07/2024 Are you able to walk independently without assistance or assistive devices? YESWOREST Information not available 03/07/2024 Do you have difficulty doing errands alone? No Information not available 03/07/2024 Are you able to care for yourself independently? Yes Information not available 03/07/2024 Do you have difficulty dressing, bathing, grooming, or toileting? No Information not available 03/07/2024 What is your exercise level? None Information not available 03/07/2024 Mental Status Question Answer Note LastModified by Organizat ion Details LastModified Time Do you feel stressed (tense, restless, nervous, or anxious, or unable to sleep at night)? [id number] Information not available 02/06/2025 Do you have difficulty concentrating, remembering or making decisions? No Information no t available 03/07/2024 Are you or have you been involved with bullying? No Information not available 03/07/2024 Family History Relationship Description Onset Age of this Age Resolved Age Notes LastModified by Organization Details LastModified Time Paternal Grandmother Arthritis Not available 02/16 14:09:27 Medical History Condition Response Coronary Artery Disease N Other N Gout N Kidney Stones N Blood Diseases N Hyperthyroidism N Breast Cancer N Blood Transfusion N Emergency room visit since last appointm ent. N Hypothyroidism N Lung Disease N COPD N Dermatologic Disorders N Depression N Defects or Inherited Disease N Developmental or Behavioral Disorders N Breast Problem N Difficulty Swallowing N Anesthesia Complications N History of STI N Meniere's disease N Anxiety Disorder Y Muscle, Joint, or Bone Problems N Autoimmune disease N Vision or Eye Problems N Arthritis N Polyps N Infertility N Mental Disorder N Congenital Anomalies N Acid Reflux (GERD) N Cancer N Stroke N Neurologic/Epilepsy N Endometriosis N Bladder or Kidney Problems N High Cholesterol N Liver Disease N Psychiatric/Mental Health Condition N Organ Transplant N Dialysis N Fibromyalgia N Schizophrenia N Headaches N Kidney Disease N Allergies/Hayfever N Heart Problems N Ear or Hearing Problems N Hospitalizations N Learning Disorder N Artificial Joints N Thyroid Problems N GI Problems N Acne N ADD/ADHD Y Eating Disorder N Anemia N Constipation N Mental Illness N Ovarian Cancer N Diabetes N Bedwetting N Hepatitis/Liver Disease N Tuberculosis N Eczema N Diverticulitis N Abuse/Domestic Violence N Asthma N Trauma/Violence N Substance Abuse N Reflux/GERD N Depression/ depression N Hepatitis N Heart Disease N Pulmonary Embolism N Tourette Syndrome N Pre-Eclampsia N Hypertension N Chronic Ear Infections N Osteoporosis N Chicken Pox N Autism Spectrum Disorder (ASD) N Thrombophilias N Immunizations Vaccine Type Date Status Note Provider Nam e and Address Organization Details Recorded Time MMR 07/06/1995 completed Not Available Count includes the [facility] 02/06/2025 14:00:13 Tdap 01/04/2018 completed Not Available [facility] 02/06/2025 14:00:13 COVID-19 vaccine, vector-nr, rS-Ad26, PF, 0.5 mL 09/18/2020 completed Not Available Count includes the [facility] 14:00:13 Past Encounters Encounter ID Performer Location Encounter Start Date Encounter Closed Date Diagnosis/Indication Diagnosis SNOMED-CT Code Diagnosis ICD10 Code Diagnosis IMO Codes Diagnosis Note [id number] ELIN Hoffmann [facility] [address] [facility] [place] [address] 02/06/2025 13:38:45 02/06/2025 17:45:10 Long-term current use of drug therapy 735450933 Z79.899 84423600 Pyoderma gangrenosum 745 55872 L88 280 Referral to [facility] burn unit 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 [id number] Attention deficit hyperactivity disorder 926964421 F90.9 Trial Adderall versus Ritalin Health Concerns Section Related Observation LastModified by Organization Detai ls LastModified Time None Recorded Concern Status LastModified by Organization Details LastModified Time None Recorded Payers Encounter Date Sequence Insurance Name Policy Number Policy Ellison Covered Member ID Ellison Member ID Guarantor Name 02/06/2025 1 [facility] [id number] Neil Hankins [id number] Neil Hankins Notes Date Note Type Note Provider Name and Address Organization Details Recorded Time 02/06/2025 text/html ROS as noted in the HPI Patient presents for followup. History of ADHD. Doesn't think Ritalin is working as well as it once did. Having trouble focusing, completing tasks. Is struggling to stay on top of things at work.Has also been dealing with a non healing ulcer on his right roche. Initial labs and biopsy indicated Sjogren's. Specialist is now thinking the is pyoderma gangrenosus and would like to have him referred to the [facility] burn unit, where there is a specialist in the condition. Requests refills on pain meds. Takes very sparingly (#12 filled 12/20) but states that occasionally and quite randomly he has a severe pain in the leg that is unrelated to activity or position or anything else that he can determine, but nothing relieves the pain. ELIN Hoffmann [address] [place] [address], [id number], [facility] [employer] 02/06/2025 17:53:16
--- OUTSIDE RECORDS SUMMARY | 2025-04-05 01:19 | XMS_ITS | Encounter Summary ---
Author Organization Healthcare Address [address] [place] [address] Care Team Providers Care Putter In Name Role Phone Taras Monreal DDS Unavailable [phone] Juan Ochoa Unavailable Unavailable Loulou Coulter Primary Care Provider [phone] Reason for Visit * Reason Onset Date Comments Deep New Start 02/20/2025 Encounter Details Date Type Department Care Team (Late st Contact Info) Description 02/20/[address] [facility] [address] [place] [address] Iraida Gonzáles, PharmD [address] [phone] Humira New Start Social History Tobacco Use Types Packs/Day Years [...] Elliot Gonzalez documented as of this encounter Plan of Treatment Upcoming Encounters Date Type Department Care Team (Late st Contact Info) Description 06/26/2025 9:00 AM EDT Office Visit [facility] [address] [place] [address] Soco Hein PA [address] [place] [address] documented as of this encounter Visit Diagnoses Diagnosis Seronegative rheumatoid arthritis of multiple sites (CMS/HCC)- Primary documented in this encounter Additional Health Concerns Assessment Noted Time PHQ-9 Depression Total Score: 0 02/21/20 8:28 AM EST A fall risk assessment has been complete d for the patient 02/20/2025 8:28 AM EST A Body Mass Index follow-up plan has been documented for the patient 02/20/2025 10:08 AM EST documented as of this encounter Care Teams Putter In Relationship Specialty Start Date End Date Loulou Coulter PA [address] [facility] [place] [address] PCP - General 02/05/25 Taras Monreal DDS [address] [facility] [address] [place] [address] Dentist Dentist 11/02/23 Juan Ochoa Dentist 11/02/23 documented as of this encounter
--- OUTSIDE RECORDS SUMMARY | 2025-04-05 01:19 | XMS_ITS | Data Portability ---
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 Assessment Encounter Date Assessment Date Assessment LastModified by Organization Details LastModified Time 01/09/2024 01/09/2024 Works at [email or web address] Not available 01/09/2024 17:03:21 Plan of Treatment Reminders Order Date Submit Date Provider Last Modified By Organization Details Last Modified Time Details Appointments RHEUM RECHECK 2025 04:00P M JENNIFER HUNTER MD Not available Not available Not available Lab CBC w/ auto diff 2024 025 [email or web address] [facility], [address] [place] [address], [address], 08/16/2024 12:22:31 CMP, serum or plasma 2024 025 [email or web address] [facility], [address] [place] [address], [phone], 08/16/2024 12:22:31 rf (rheumato id factor), serum 2024 025 [facility], [address] [place] [address], [address], 07/17/2024 16:44:20 ccp (cyclic citrullin ated peptide) iga+igg, serum 2024 025 [facility], [address] [place] [address], [address], 07/18/2024 18:53:05 hepatitis (A+B+C) panel, serum 2024 025 [facility], [address] [place] [address], [address], 07/17/2024 16:57:52 surgical pathology study - 3mm punch bx 2023 024 [facility], [address] [place] [address], [address], 01/11/2024 11:00:25 culture, bacterial 2023 024 [facility], [address] [place] [address], [address], 01/10/2024 10:24:51 Referral None recorded. Procedures None recorded. Surgeries None recorded. Imaging None recorded. Medication Orders methotrex ate sodium 2.5 mg tablet 2024 025 [facility], [address] [place] [address], [id number], 09/23/2024 17:49:58 folic acid 1 mg tablet 2024 025 [facility], [address] [place] [address], [id number], 09/23/2024 17:49:59 prednison e 5 mg tablet 2024 025 [facility], [address] [place] [address], [id number], 07/17/2024 17:24:38 doxycycli ne monohydra te 100 mg capsule 2023 024 [facility], [address] [place] [address], [place], [id number], 01/09/2024 11:56:44 Patient TargetsNo targets recorded. Patient Instructions Encounter Date Encounter Id Patient Instructions Last Modified By Organization Details Last Modified Time 02/15/2024 [id number] 1. Recent lab work reviewed and discussed with patient. 2. Recommended In office lower lip minor salivary gland biopsy. Full risks, complications, and benefits of operative versus non-operative intervention have been thoroughly discussed. Understanding was expressed, informed consent given, and we will proceed with the discussed operative treatment plan. There were no questions for me at the end of the office visit. 3. Avoid caffeine, hydrate often, and use sialogogues. Gargle warm salt water prn. 4. Follow up with results. [email or web address] Not available 02/15/2024 16:24:54 03/21/2024 [id number] 1. Salivary Glan d Biopsy (lower lip) performed in office Full risks, complications, and benefits of non-operative intervention have been thoroughly discussed. Understanding was expressed, informed consent given, and we will proceed with the discussed treatment plan. There were no questions for me at the end of the office visit. 2. Tissue sample was sent for pathology. 3. Will Call Pt with results [email or web address] Not available 03/21/2024 08:36:31 07/17/2024 [id number] Follow-up 3 weeks Not availab le 07/17/2024 15:42:11 08/09/2024 [id number] Follow-up 2 months Not available 08/09/2024 14:53:56 Reason for Referral None Reported. Results Created Date Observation Date Name Description Value Unit Range Abnormal Flag Note LastModifiedBy Organization Detail LastModifiedTime 12/20/1912/20/2023 PARESH TIN ferritin 269 NG/mL 30-400 normal Not Available [facility] [address] [place], [address], 12/20/2023 16:12:04 12/20/19 24 12/20/2023 IRON PANEL -TOTA L AND TIBC iron 66 ug/dL 59-158 normal Not Available [facility] [address] [place], [address], 12/20/2023 16:12:07 12/20/19 24 12/20/2023 IRON PANEL -TOTA L AND TIBC total iron binding cap. 309 ug/dL _(spring c) 250-45 0 normal Not Available [facility] [address] [place] [address], [address], 12/20/2023 16:12:07 12/20/19 24 12/20/2023 IRON PANEL -TOTA L AND TIBC unsat.iron binding cap. 243 ug/dL 112-34 7 normal Not Available [facility] [address] [place] [address], [address], 12/20/2023 16:12:07 12/20/19 24 12/20/2023 IRON PANEL -TOTA L AND TIBC % saturation 21 %_(ca lc) 20-50 normal Not Available [facility] [address] [place] [address], [address], 12/20/2023 16:12:07 12/20/19 24 12/20/2023 MAGNE SIUM magnesium 2.1 mg/dL 1.6-2. 6 normal Not Available [facility] [address] [place] [address], [address], 12/20/2023 16:12:09 12/20/19 24 12/20/2023 VITAM IN B12 vitamin B12 643 pg/mL 232-12 45 normal Not Available [facility] [address] [place] [address], [address], 12/20/2023 16:20:10 12/20/19 24 12/20/2023 UR PROTE IN/CR EAT RATIO total protein,ur,r andom 5 mg/dL normal NO KARLOS L RANGE ESTAB LISHE D FOR RANDO M URINE . Not Available [facility] [address] [place] [address], [address], 12/20/2023 17:41:12/20/19 24 12/20/2023 UR PROTE IN/CR EAT RATIO creatinine,u r,random 119 mg/dL normal NO KARLOS L RANGE ESTAB LISHE D FOR RANDO M URINE . Not Available [facility] [address] [place] [address], [address], 12/20/2023 17:41:09 12/20/19 24 12/20/2023 UR PROTE IN/CR EAT RATIO protein/crea t ratio 0.04 0.00-0 .19 normal Not Available [facility] [address] [place] [address], [address], 12/20/2023 17:41:09 12/20/1912/20/2023 URINA LYSIS color Yellow normal Not Available [facility] [address] [place] [address], [address], 12/20/2023 17:46:24 12/20/1912/20/2023 URINA LYSIS appearance Clear normal Not Available [facility] [address] [place] [address], [address], 12/20/2023 17:46:24 12/20/1912/20/2023 URINA LYSIS glucose 100 mg/dL normal abnormal Not Available [facility] [address] [place] [address], [address], 12/20/2023 17:46:24 12/20/1912/20/2023 URINA LYSIS bilirubin Negati ve mg/dL negati ve normal Not Available [facility] [address] [place] [address], [address], 12/20/2023 17:46:24 12/20/1912/20/2023 URINA LYSIS ketone Negati ve mg/dL negati ve normal Not Available [facility] [address] [place] [address], [address], 12/20/2023 17:46:24 12/20/1912/20/2023 URINA LYSIS specific gravity 1.015 1.003- 1.035 normal Not Available [facility] [address] [place] [address], [address], 12/20/2023 17:46:24 12/20/19 24 12/20/2023 URINA LYSIS blood Negati ve /uL negati ve normal Not Available [facility] [address] [place] [address], [address], 12/20/2023 17:46:24 12/20/19 24 12/20/2023 URINA LYSIS pH 6 5.0 - 8.0 normal Not Available [facility] [address] [place] [address], [address], 12/20/2023 17:46:24 12/20/19 24 12/20/2023 URINA LYSIS protein Negati ve mg/dL negati ve normal Not Available [facility] [address] [place] [address], [address], 12/20/2023 17:46:24 12/20/19 24 12/20/2023 URINA LYSIS urobilinogen Normal mg/dL normal normal Not Available [facility] [address] [place] [address], [address], 12/20/2023 17:46:24 12/20/19 24 12/20/2023 URINA LYSIS nitrite Negati ve negati ve normal Not Available [facility] [address] [place] [address], [address], 12/20/2023 17:46:24 12/20/19 24 12/20/2023 URINA LYSIS leukocyte esterase Negati ve /uL negati ve normal Not Available [facility] [address] [place] [address], [address], 12/20/2023 17:46:24 12/20/19 24 12/20/2023 URINA LYSIS WBC, urine Rare 0-5/hp f normal Not Available [facility] [address] [place] [address], [address], 12/20/2023 17:46:24 12/20/19 24 12/21/2023 SS-A/ SS-B (SJOG MONIKA'S ) ss-A Ab <1.0 NEG ai <1.0 neg normal Not Available [facility] [address] [place] [address], [address], 12/21/2023 22:12:11 12/20/19 24 12/21/2023 SS-A/ SS-B (SJOG MONIKA'S ) ss-B Ab >8.0 POS ai <1.0 neg abnormal Not Available [facility] [address] [place] [address], [address], 12/21/2023 22:12:11 12/20/19 24 12/21/2023 C4 C4 25 mg/dL 15-53 normal Not Available [facility] [address] [place] [address], [address], 12/21/2023 22:36:58 12/20/19 24 12/21/2023 C3 C3 139 mg/dL 82-185 normal Not Available [facility] [address] [place] [address], [address], 12/21/2023 22:36:59 12/20/19 24 12/22/2023 PROTE IN ELECT ROPHO RESIS , SERUM protein, total 7.4 g/dL 6.1-8. 1 normal Not Available [facility] [address] [place] [address], [address], 12/25/2023 14:00:51 12/20/19 24 12/25/2023 PROTE IN ELECT ROPHO RESIS , SERUM albumin 4.6 g/dL 3.8-4. 8 normal Not Available [facility] [address] [place] [address], [address], 12/25/2023 14:00:51 12/20/19 24 12/25/2023 PROTE IN ELECT ROPHO RESIS , SERUM mcmsx-7-ller ulin 0.3 g/dL 0.2-0. 3 normal Not Available [facility] [address] [place] [address], [address], 12/25/2023 14:00:51 12/20/19 24 12/25/2023 PROTE IN ELECT ROPHO RESIS , SERUM blprm-9-nqcp ulin 0.6 g/dL 0.5-0. 9 normal Not Available [facility] [address] [place] [address], [address], 12/25/2023 14:00:51 12/20/19 24 12/25/2023 PROTE IN ELECT ROPHO RESIS , SERUM beta 1 globulin 0.5 g/dL 0.4-0. 6 normal Not Available [facility] [address] [place] [address], [address], 12/25/2023 14:00:51 12/20/19 24 12/25/2023 PROTE IN ELECT ROPHO RESIS , SERUM beta 2 globulin 0.4 g/dL 0.2-0. 5 normal Not Available [facility] [address] [place] [address], [address], 12/25/2023 14:00:51 12/20/19 24 12/25/2023 PR[facility] IN [facility]LECT [facility] , [facility] gamma globulin 1.1 g/dL 0.8-1. 7 normal Not Available [facility] [address] [place] [address], [address], 12/25/2023 14:00:51 12/20/19 24 12/25/2023 PROTE IN ELECT ROPHO RESIS , SERUM interpretati on SEE NOTE normal No restr icted band (M-sp miguelina) seen. Not Available [facility] [place], [address], 12/25/2023 14:00:51 12/20/19 24 12/22/2023 LIONEL SCREE N, IFA LIONEL screen NEGATI VE negati ve normal LIONEL IFA is a first line scree n for detec ting the prese nce of up to appro ximat maik 150 autoa ntibo dies in vario us autoi mmune disea ses. A negat aniyah LIONEL IFA resul t sugge sts an LIONEL-a ssoci ated autoi mmune disea se is not prese nt at this time, but is not defin itive . If there is high clini spring suspi cion for Sjogr en's syndr ome, testi ng for anti- SS-A/ Ro antib kristin shoul d be consi dered . Anti- Ave-1 antib kristin shoul d be consi dered for clini ron suspe cted infla mmato ry myopa chance . AC-0: Negat aniyah Inter natio nal Conse nsus on LIONEL Patte rns (http s://d oi.or g/10. 1515/ [facility]- 2017- 0052) For addit ional infor sri torres e refer to http: //[facility] koffi rice.Que stDia gnost ics.c om/fa q/FAQ 177 (This link is being provi ded for infor matio nal/ educa contreras l purpo ses only. ) Not Available [facility] [address] [place] [address], [address], 12/22/2023 18:00:55 01/09/20 24 01/10/2024 CULTU REVELMA NE gram stain Occas ional White Blood Cells . Rare Epith elial Cells . Many Gram posit aniyah bacil samaria serra d. Occas ional Gram posit aniyah cocci in pairs . Not Available [facility] [address] [place], [address], 01/12/2024 13:12:11 01/09/20 24 01/12/2024 CULTU VELMA AMAYA culture, routine Normal skin gatito isolat ed. Not Available [facility] [address] [place], [address], 01/12/2024 13:12:11 01/09/20 24 01/09/2024 SURGI SPRING surgical SEE BELOW normal Depar tment of Patho logy Surgi spring Patho logy Repor t NAME: ABDOULAYE VINSON, JOBY Rice PATH. :SC-2 00 Copy to: Diagn osis: Right later al lower leg: Featu res ana tible with chron ic ulcer inclu ding derma l neova scula rizat ion, fibro sis and mixed infla mmati on. Negat aniyah for malig garcia . SOURC E OF SPECI MEN: SKIN BIOPS Y, RIGHT LATER AL LOWER LEG CLINI SPRING INFOR MATIO N: 3 mm PUNCH BX L 97.90 9 R/O INFEC TION vs VENOU S ULCER vs SKIN CANCE R Gross Descr iptio n: Recei maria elena in forma edelmira label ed with the patie nt's name and desig nated righ t later al lower leg is a 0.3 cm punch biops y of skin excis ed to a depth of 0.4 cm. The skin surfa ce is unrem katalina le. The reji ns are inked blue. Entir maik submi tted in one casse tte label ed A1. MT 01/08 03:32 PM Micro scopi c Descr iptio n: A micro scopi c exami natio n has been perfo rmed and the resul t(s) are as noted above . In areas where the epide rmis is intac t, no viral cytop athic effec t, dyspl zach, or malig garcia is seen. Gram stain is posit aniyah for bacte rial colon izati on on the surfa ce of the ulcer . Howev er, no micro organ isms are prese nt withi n the actua l dermi s. These findi ngs may repre sent venou s insuf ficie ncy/s tasis ulcer . VICKIE BRANDT M.D. Kizzy d Out Date: 01/10 10:59 Page 1 of 1 Not Available [facility] [address] [place] [address], [place], [address], 01/11/2024 11:00:25 03/21/2003/21/2024 SURGI SPRING surgical SEE BELOW normal Surgi spring Patho logy Repor t NAME: ABDOULAYE SON, JOBY Rice PATH: [id number] DATE of : [birth year] Copy to: Diagn osis: Lower lip biops y: - Benig n minor saliv hesham gland with no signi fican t lymph oid infla mmati on. Focus score 0. SOURC E OF SPECI MEN: LIP BIOPS Y, LOWER CLINI SPRING INFOR MATIO N: R68.2 R/O SJOGR EN SYNDR OME Gross Descr iptio n: Patie nt name and date of verif ied. Recei maria elena in forma edelmira label ed with the patie nt's name and desig nated lowe r lip biops y are five fragm ents of pale curtis tissu e rangi ng from 0.2 to 0.7 cm. Entir maik submi tted in one casse tte label ed A1. AMARILISB 03/22 10:53 AM Micro scopi c Descr iptio n: A micro scopi c exami natio n has been perfo rmed and the resul t(s) are as noted above . PRABHA NGUYỄN MD Kizzy d Out Date: 03/25 10:22 Page 1 of 1 Not Available [facility] [address] [place] [address], [address], 03/25/2024 10:23:15 07/18/19 25 07/17/2024 RF SCREE N, QUANT . rf screen, quant. <10.0 [IU]/ mL 0.0-13 .9 normal Not Available [facility] [address] [place] [address], [address], 07/17/2024 16:44:20 07/18/19 25 07/17/2024 HEPAT ITIS PANEL hepatitis A Ab, IgM NONREA CTIVE nonrea ctive normal Not Available [facility] [address] [place] [address], [address], 07/17/2024 16:57:52 07/18/19 25 07/17/2024 HEPAT ITIS PANEL hepatitis B surface Ag NONREA CTIVE nonrea ctive normal Not Available [facility] [address] [place] [address], [address], 07/17/2024 16:57:52 07/18/19 25 07/17/2024 HEPAT ITIS PANEL hepatitis B core Ab,IgM NONREA CTIVE nonrea ctive normal Not Available [facility] [address] [place] [address], [address], 07/17/2024 16:57:52 07/18/19 25 07/17/2024 HEPAT ITIS PANEL hcab, reflex viral RNA qt NONREA CTIVE nonrea ctive normal Antib odies to HCV were not detec eloise; does not exclu de the possi bilit y of expos ure to HCV. Not Available [facility] [address] [place] [address], [address], 07/17/2024 16:57:52 07/18/19 25 07/18/2024 ANTI- CCP anti-ccp <16 units normal Refer ence Range Negat aniyah: <20 Weak Posit aniyah: 20-39 Moder ate Posit aniyah: 40-59 Stron g Posit aniyah: >59 Not Available [facility] [address] [place] [address], [address], 07/18/2024 18:53:04 12/20/19 24 12/20/2023 XR, chest , [address] [address] Patien t Name: CHRISTIAN LEE ON Patien t : 985 Patien t 4 Orderi ng Provid er: JENNIFER MIN EXAM DATE: 2023 EXAM: XR CHEST AP/LAT CLINIC AL INFORM ATION: Treatm ent protoc ol IMAGES PROVID ED: AP and latera l views of the chest. COMPAR ROXANN: None. FINDIN GS: Cardio thymic shadow is normal . Lung ochoa are clear. Mild chroni c appear ing change s in the lower left lung field IMPRES FREDY: No acute cardio pulmon hesham change s Interp reted By: Ulises Llanos MD Electr onical ly Signed By: Ulises Llanos MD on 12/20/19 3:36 PM [facility] [address] [place], [address], 12/27/2023 17:31:40 Result Notes None recorded. Procedures Surgical History Date Name Laterality Status Provider Name and Address Organization Details Recorded Time 03/21/20 Biopsy Salivary Gland; Incisional completed Felipe Isa [facility] 03/21/2024 08:38:29 01/09/20 Biopsy Skin Lesion; Punch completed Velvet Blevins [facility] 01/09/2024 11:48:25 radiofrequency ablation completed [facility] 07/17/2024 15:20:47 Imaging Results None recorded. Procedure Notes None recorded. Medical Equipment None Reported. Allergies Allergen ID Allergen Name Allergen Category Reaction Reaction Severity Criticality Documentation Date Start Date Code Code System Note Provider Name and Address Organization Details Recorded Time 997171 Substance with sulfonami de structure and antibacte rial mechanism of action (substanc e) medicatio n Not available Not available Not available 01/09/2024 58873 8003 [facility]ED [facility] 11[facility]29[facility] 268999 [facility] medicatio n Not available Not available Not available 01/09/2024 7975 RxNorm Velvet Blevins [facility] 11:29:29 Medications Name Sig Start Date Stop Date Status Note LastModified by Organization Details LastModified Time methylphenida te 20 mg tablet Take 1 tablet twice a day by oral route. active Not Available Not Available No t Available prednisone 5 mg tablet Take 20 mg (4 tabs) daily x 5 days, 15 mg (3 tabs) x 5 days, 10 mg (2 tabs) x 5 days, 5 mg (1 tab) x 5 days then stop 2024 active Not Available Not Available Not Avai lable methotrexate sodium 2.5 mg tablet Take 6 tabs by mouth once a week 2024 active Not Available Not Available Not Avai lable doxycycline monohydrate 100 mg capsule Take 1 capsule twice a day by oral route with meal(s) for 10 days. 2023 active Not Available Not Available Not Avai lable folic acid 1 mg tablet Take 1 tablet every day by oral route. 2024 active Not Available Not Available Not Avai lable Vitamin D active d2 weekly Not Available Not Available Not Available desvenlafaxin e ER 50 mg tablet,extend ed release 24 hr Take 1 tablet every day by oral route. active Not Available Not Available No t Available Vitals Date Recorded Body height Body mass index (BMI) Body weight Respiratory rate Heart rate Oxygen saturation Systolic And Diastolic Provider Name and Address Organization Details Last Updated DateTime 5 198.12 cm 37.2 kg/m2 694721. 74 g 14 /min 83 /min 96 % 152/70 mm[Hg] Summer Crabtree [facility] 5 15:16:59 Date Recorded Body height Respiratory rate Body mass index (BMI) Body weight Oxygen saturation Heart rate Systolic And Diastolic Provider Name and Address Organization Details Last Updated DateTime 5 198.12 cm 14 /min 37.2 kg/m2 470822. 74 g 96 % 82 /min 122/78 mm[Hg] Evin Cornelius [facility] 5 13:53:21 Date Recorded Body height Body mass index (BMI) Body weight Body temperature Heart rate Systolic And Diastolic Provider Name and Address Organization Details Last Updated DateTime 4 198.12 cm 35.2 kg/m2 048520. 18 g 97 [degF] 69 /min 87/48 mm[Hg] Queenie Blunt [facility] 4 15:35:20 Date Recorded Body height Body mass index (BMI) Body weight Body temperature Heart rate Systolic And Diastolic Provider Name and Address Organization Details Last Updated DateTime 4 198.12 cm 35.5 kg/m2 059190. 86 g 97.3 [degF] 77 /min 135/91 mm[Hg] Roseline Ferrari [facility] 4 08:22:56 Social History Question Answer Notes LastModified by Organizat ion Details LastModified Time Tobacco Smoking Status Current Every Day Smoker [place] [facility] 12/20/2023 14:12:34 What Was The Date Of Your Most Recent Tobacco Screening? 08/09/2024 [email or web address] Information not available 08/09/2024 How Much Tobacco Do You Smoke? 1 PPD [email or web address] Information not available 07/17/2024 Sex: Male Functional Status Question Answer Note LastModified by Organizat ion Details LastModified Time What is your level of alcohol consumption? Occasional socially [email or web address] Information not available 12/20/2023 Mental Status None recorded. Family History Relationship Description Onset Age of this Age Resolved Age Notes LastModified by Organization Details LastModified Time Unspecified Relation Diabetes mellitus [email or web address] Not available 2023 14:23:31 Paternal Grandmother Ankylosing spondylitis [email or web address] Not available 07/2023 14:23:39 Medical History No medical history recorded. Past Encounters Encounter ID Performer Location Encounter Start Date Encounter Closed Date Diagnosis/Indication Diagnosis SNOMED-CT Code Diagnosis ICD10 Code Diagnosis IMO Codes Diagnosis Note [id number] JENNIFER HUNTER MD [facility] [address] [place] [address] 12/20/2023 13:59:27 12/21/2023 04:50:44 Keratoconjunctivitis sicca 349949714 M35.01 In the setting of smoking. He has SSB positive. SSA negative. Will plan to repeat LIONEL, SSA, SSB. Will check complement s, SPEP, UA, UPC. He does not demonstrat e signs or symptoms of rheumatoid arthritis (as sicca symptoms can be secondary to RA). Ulcer of l ower extremity 80677847 L97.909 Needs to be seen by dermatolog y for biopsy. Unsure if other subcutaneo us nodule/cys t is related to these on his right leg. I have advised pt to stop smoking. Nodule of skin of lower limb 340922226 R22.40 Fatigue 33009280 R53.83 Nonspecifi c. Will check labs today. Discussed with patient that fatigue can be seen related to Sjogren's. Dry cough 68787085 R05.9 In the setting of active smoking. Will start with chest x-ray. Depending on blood work above, may consider high-resol ution CT chest in the future to evaluate for ILD [id number] CHARBEL FUNK PA-C [facility]O [address] [address] [place] [address] 01/09/2024 11:19:01 01/09/2024 12:46:37 Ulcer of lower extremity 02684746 L97.909 R lateral lower legNon-hea ling ulcer x 3 months DDX: infection vs venous stasis ulcer vs skin cancer Routine culture taken3 mm punch bx taken today of perimeter of ulcersee procedure notewound care was givenconse nt was signedphot o taken Start doxycyclin eRecommend smoking cessation, as slows wound healing and worsens circulatio nf/up per path 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 2 Dry eyes [id number] H04.1 23 Cigarette smoker [id number] F17.210 1 pack per day [id number] JENNIFER HUNTER MD RHEUMATOL [facility] [address] [place] [id number] 07/17/2024 15:01:27 07/18/2024 06:37:49 Bilateral hand joint stiffness [id number] M25.641 M25.642 Progressiv e bilateral hand swelling, pain, stiffness. Stiffness is lasting most of the day. Hard to make a full fist. Tenderness most notable in MCPs and PIPs. Overall he has synovial thickening in his hands, so it is somewhat difficult discern true synovitis. Will plan to trial prednisone taper over the next few weeks and assess response.W ill check labs today.Pend ing response, consider DMARD. Keratoconj unctivitis sicca [id number] M35.01 In the setting of smoking, medication side effects.. He has SSB positive. SSA negative. LIONEL negative. Complement s normal. SPEP was normal.Sundeep ivary gland/lip biopsy was negative with focus score of 0.Primary Sjogren's has been ruled out.Given progressiv e bilateral hand stiffness, swelling, I am suspicious there may be rheumatoid arthritis, which can also cause secondary sicca symptoms. Ulcer of l ower extremity [id number] L97.909 Improved. Seen by dermatolog y, then referred to vascular surgery. Has had surgery now to improve blood flow. Ulcers are healing. Nodule of skin of lower limb [id number] R22.40 Fatigue [id number] R53.83 Nonspecifi c. He has had some weight gain. Can also be seen in the setting of inflammato ry arthritis. Other labs were okay. Dry cough 68615008 R05.9 In the setting of active smoking. Chest x-ray was negative. May consider CT chest in the future [id number] JENNIFER HUNTER MD RHEUMATOL [facility] [address] [place] [phone] 08/09/2024 13:48:29 08/10/2024 04:05:06 Seronegative rheumatoid arthritis [id number] M06.00 [id number] Progressiv e bilateral hand swelling, pain, stiffness. Stiffness is lasting most of the day. Hard to make a full fist. Tenderness most notable in MCPs and PIPs. Overall he has synovial thickening in his hands, so it is somewhat difficult discern true synovitis. Symptoms were steroid responsive . Rheumatoid factor, CCP negative.H epatitis negative Discussed the risks and benefits for methotrexa te therapy including, but not limited to, liver toxicity, cytopenias . Additional ly, patient informed of the need to abstain from all alcohol while on methotrexa te. Also discussed daily folic acid supplement ation. ACR handout on methotrexa te was given to patient to review and encouraged to ask questions. Also gave ACR handout on TNF inhibitors Advised pt to obtain labs in 1 month at [facility] after starting methotrexa te. At our next follow-up in 2 months, will also obtain labs. Keratoconj unctivitis sicca [id number] M35.01 In the setting of smoking, medication side effects.. He has SSB positive. SSA negative. LIONEL negative. Complement s normal. SPEP was normal.Sundeep ivary gland/lip biopsy was negative with focus score of 0.Primary Sjogren's has been ruled out.I suspect likely secondary Sjogren's with RA Ulcer of l ower extremity [id number] L97.909 Improved. Seen by dermatolog y, then referred to vascular surgery. Has had surgery now to improve blood flow. Ulcers are healing. Fatigue [id number] R53.83 Nonspecifi c. He has had some weight gain. Can also be seen in the setting of inflammato ry arthritis. Other labs were okay. Dry cough [id number] R05.9 In the setting of active smoking. Chest x-ray was negative. May consider CT chest in the future Tobacco user [id number] Z 72.0 [id number] Reiterated importance of smoking cessation in the setting of RA diagnosis and initiation of immunosupp ression. Health Concerns Section Related Observation LastModified by Organization Detai ls LastModified Time None Recorded Concern Status LastModified by Organization Details LastModified Time None Recorded Advance Directives Directive None Recorded Payers Insurance Date Sequence Insurance Name Policy Number Policy Ellison Covered Member ID Ellison Member ID Guarantor Name 02/15/2025 1 [facility] (POS) [id number] Christian Hankins [id number] Christian Hankins 01/13/2025 PAYMENT PLAN Christian Hankins Notes Date Note Type Note Provider Name and Address Organization Details Recorded Time 01/09/2024 text/html ROS as noted in the HPI New Patient--referred by JENNIFER HUNTER, MDaccompanied by , July Patient presents to the clinic today for an ulceration located on his R lower leg. Has been present for the past 3 months. He has no idea how it got there. Reports the area does not itch but is red, swollen and painful at times. No other ulcers on his body reported. Oozed very little, but when it did was yellow in color. He has treated with topical bactroban, betamethasone and triamcinolone. No culture has been done. PCP ordered LIVE about a month ago with reportedly normal result. Denies any other new, changing, or bleeding lesions, or other rashes, feels well, and has no family history of melanoma. CHARBEL FUNK PA-C [address] [place], [phone], [facility] 01/09/2024 17:05:16 02/15/2024 text/html ROS as noted in the HPI Christian Hankins ([id number]) visits our office for an evaluation of Sjorgrens syndrome. This was revealed in recent blood work. He experiences dry mouth and eyes. 12/20/23 ss-B Ab: >8.0 POS, abnormal ASHLEY COLLIER MD [address] [place] [address], [phone], [facility] 02/15/2024 16:25:11 03/21/2024 text/html Christian visits us in office today to follow up on his Sjogren's syndrome. Pt had a previous blood test for sjogrens after he had experienced dry mouth, as well as pain in the joints. He has seen a flame cutting supervisor in the past. His flame cutting supervisor was not convinced that Sjogrens is the cause of his dry mouth symptoms and sent for further testing in the form if a salivary gland biopsy. Pt is a 1 pack per day smoker. Pt reports drinking a large amount of caffeine daily. ASHLEY COLLIER MD [address] [place] [address], [phone], [facility] 03/21/2024 13:21:07 07/17/2024 text/html ROS as noted in the HPI Last seen 12/20/23. Since last visit, pt was referred to ENT for salivary gland/lip biopsy (results negative for primary Sjogren's) and referred to Dermatology for non-healing nodules/ulcers on his leg.Was then referred to Vascular Surgery ([facility]). He had surgery on his legs to help with blood flow, as he had significantly decreased blood flow noted on testing. Leg ulcers have significantly improved. Reports that hand swelling, stiffness, pain has progressed over the last few months. Stiffness is lasting throughout the day. Hard to make a full fist. Dry eyes and dry mouth are about the same. Still smoking. From initial HPI 12/20/23:Here with .Referred by PCP for evaluation of nodules on bilateral shins, nonhealing ulcers. had noticed knots/nodules on bilateral shins since October. More noticeable when he is standing.Has other ulcers on right lower leg that are not healing easily for the past 3 months. Denies drainage.Legs get purplish discoloration.Has not seen dust collector operator.He is a smoker.No hemoptysis. No history of recurrent sinus infections, epistaxis.Denies blood in urine.Taking Methylphenidate.Zoran es triphasic color changes with cold exposure. Saw flame cutting supervisor in [place], [place] 3-4 years ago for evaluation of hand swelling, possible rheumatoid arthritis.Hands swell. Hands feel tight.Endorses morning stiffness in hands about 5-10 minutes.Reports dull joint pains constantly in hands, shoulders, knees.Wrists, elbows are ok.Ankles, feet are ok.Reports back stiffness and pains that is frequent throughout the day; not much difference in the morning.Denies buttock or groin pain. No history of recurrent fevers. +Dry eyes, dry mouth constantly. Wears contacts. Drinks constantly to stay hydrated.Follows with dentist. Has had issues with multiple cavities.SSB antibody was positive. Sounds like there was concern for possible Sjogren's in the past. Reports dry cough.Denies chest pain.No history of inflammatory eye disease. Denies any rash, oral ulcers, alopecia, photosensitivity, Raynaud's phenomenon. No history of DVT/PE. JENNIFER HUNTER MD [address] [place], [phone], [facility] 07/17/2024 15:42:24 08/09/2024 text/html ROS as noted in the HPI Last seen 07/18/23. Since last visit, Prednisone taper completed. Reports significant improvement with hand pain, stiffness, swelling. While on steroids, and he did not have any morning stiffness at all. Was able to make a full fist. Denies any particular side effects related to steroid use. Fatigue had improved. Ulcer on his leg has continued to improve. States that he is supposed to have injections around the ulcer site next month. Sicca symptoms are about the same. Still smoking. Denies infections, rashes, chest pain, blood in stool or urine. From initial HPI 12/20/23:Here with .Referred by PCP for evaluation of nodules on bilateral shins, nonhealing ulcers. had noticed knots/nodules on bilateral shins since October. More noticeable when he is standing.Has other ulcers on right lower leg that are not healing easily for the past 3 months. Denies drainage.Legs get purplish discoloration.Has not seen dust collector operator.He is a smoker.No hemoptysis. No history of recurrent sinus infections, epistaxis.Denies blood in urine.Taking Methylphenidate.Zoran es triphasic color changes with cold exposure. Saw flame cutting supervisor in [place], [place] 3-4 years ago for evaluation of hand swelling, possible rheumatoid arthritis.Hands swell. Hands feel tight.Endorses morning stiffness in hands about 5-10 minutes.Reports dull joint pains constantly in hands, shoulders, knees.Wrists, elbows are ok.Ankles, feet are ok.Reports back stiffness and pains that is frequent throughout the day; not much difference in the morning.Denies buttock or groin pain. No history of recurrent fevers. +Dry eyes, dry mouth constantly. Wears contacts. Drinks constantly to stay hydrated.Follows with dentist. Has had issues with multiple cavities.SSB antibody was positive. Sounds like there was concern for possible Sjogren's in the past. Reports dry cough.Denies chest pain.No history of inflammatory eye disease. Denies any rash, oral ulcers, alopecia, photosensitivity, Raynaud's phenomenon. No history of DVT/PE. JENNIFER HUNTER MD [facility] [place], [phone], [facility] 08/09/2024 14:59:29
--- OUTSIDE RECORDS SUMMARY | 2025-04-05 01:19 | XMS_ITS | Clinical Summary ---
Author Organization Healthcare Address [address] [place] [address] Care Team Providers Care Cashier Courtesy Booth Name Role Phone Taras Monreal DDS Unavailable [phone] Juan Ochoa Unavailable Unavailable Loulou Coulter Primary Care Provider [phone] Allergies Active Allergy Reactions Criticality Noted Date Comments Penicillin G Anaphylaxis High 03/31/2023 Sulfa Drugs Hives Medium 03/31/2023 Medications cholecalciferol (Vitamin D3) 200 Unit tablet split tablet 1 (one) time each day. 04/12/2023 Active desvenlafaxine (Pristiq) 50 MG 24 hr tablet 1 tablet (50 mg). 12/20/2022 Active ergocalciferol 1.25 MG (88387 UT) capsule 09/20/2023 Active methylphenidate (Ritalin) 20 MG tablet 1 tablet (20 mg). 03/31/2023 Active Adalimumab-atto (Amjevita) 40 MG/0.4ML solution auto-injectorInd ications:Seroneg ative rheumatoid arthritis of multiple sites (CMS/HCC) Inject 40 mg under the skin every 14 days. 0.8 mL 5 02/26/2025 Active Encounters Date Type Department Care Team Description 02/26/2025 Results [facility] [address], [address] [place] [phone] Soco Hein PA 02/26/2025 Orders Only [facility] [address] [place] [phone] [place] Nails Seronegative rheumatoid arthritis of multiple sites (CMS/HCC) 02/20/2025 10:38 AM EST - 02/20/2025 11:59 PM EST Hospital Encounter [facility] Radiology [address], [address] [place] [address] Seronegative rheumatoid arthritis of multiple sites (CMS/HCC) Discharge Disposition: Home or Self Care 02/20/2025 8:00 AM EST Consult [facility] Medicine Specialties [address] [place] [address] Soco Hein PA 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); Inflammatory polyarthropathy ([facility]/HCC); Pyoderma gangrenosum; SS-B antibody positive; Abnormal CXR; High risk medication use 02/20/2025 Patient Outreach [facility] Medicine Specialties [address] [place] [address] Tere Brown 02/20/2025 Telephone [facility] Medicine Specialties [address], [address] [place] [phone] Iraida Gonzáles, PharmD [facility] [employer] [facility] 02/20/2025 Travel from Last 3 Months Immunizations Immunization Administration Dates Next Due MMR 07/06/1995 SARS-CoV-2, Unspecified 09/18/2020 Tdap 01/04/2018 Social History Tobacco Use Types Packs/Day Years [...] Mass Index 35.92 02/20/2025 8:26 AM EST Plan of Treatment Upcoming Encounters Date Type Department Care Team (Late st Contact Info) Description 06/26/2025 9:00 AM EDT Office Visit [facility] [address] [place] [address] Soco Hein PA [address] [place] [address] Health Maintenance Due Date Last Done Comments [facility]-HIV Screening 1984 [facility]-/Child/Adol SDOH Screenings 1984 [facility]-Varicella Vaccines (1 of 2 - 13+ 2-dose series) 1997 [facility]- SDOH Screenings 2002 [facility]-Adult SDOH Screenings 2002 [facility]-Hepatitis B Vaccines (1 of 3 - 19+ 3-dose series) 2003 [facility]-Pneumococcal Vaccine: Pediatrics (0 to 5 Years) and At-Risk Patients (6 to 49 Years) (1 of 2 - PCV) 2003 [facility]-EUPUF-30 Vaccine (2 - season) 2024 09/18/2020 [facility]-Influenza Vaccine (#1) 2024 [facility]-Depression Screening 02/20/2026 025, 02/20/2025 [facility]-Diabetes: Hemoglobin A1C 02/20/2026 02/20/2025 [facility]-DTaP,Tdap,and Td Vaccine s (2 - Td or Tdap) 01/05/2028 01/04/2018 [facility]-Zoster Vaccines (1 of 2) 2034 [facility]-Hepatitis C Screening Completed 02/20/2025 [facility]-Obesity Intervention Completed 025, 11/02/2023 HPV Vaccines (No Doses Required) Completed [facility]-HIB Vaccines Aged Out No longer e [...] Seronegative rheumatoid arthritis of multiple sites (CMS/HCC) PROTEIN ELECTROPHORESIS, PATHOLOGIST INTERPRETATION Routine 02/20/2025 10:34 AM EST SS-B antibody positive HEPATITIS C VIRUS QUANTITATIVE PCR FROM REFLEX Routine 02/20/2025 10:34 AM EST High risk medication use DNA ISOLATION AND HOLD (HLA) Routine 02/20/2025 10:34 AM EST Inflammatory polyarthropathy (CMS/HCC) TOTAL PROTEIN, SERUM Routine 02/20/2025 10:34 AM EST SS-B antibody positive PROTEIN ELECTROPHORESIS, SERUM Routine 02/20/2025 10:34 AM EST SS-B antibody positive C-REACTIVE PROTEIN, PLASMA Routine 02/20/2025 10:34 AM EST Seronegative rheumatoid arthritis of multiple sites (CMS/HCC) SEDIMENTATION RATE, AUTOMATED Routine 02/20/2025 10:34 AM EST Seronegative rheumatoid arthritis of multiple sites (CMS/HCC) ANTINUCLEAR ANTIBODY (LIONEL) WITH HEP-2 SUBSTRATE, IGG BY IFA (SO) Routine 02/20/2025 10:34 AM EST SS-B antibody positive DOUBLE-STRANDED DNA (DSDNA) ANTIBODY, IGG BY IFA (SO) Routine 02/20/2025 10:34 AM EST SS-B antibody positive C3 COMPLEMENT Routine 02/20/2025 10:34 AM EST SS-B antibody positive C4 COMPLEMENT Routine 02/20/2025 10:34 AM EST SS-B antibody positive EXTRACTABLE NUCLEAR ANTIGEN ANTIBODIES (SSA 52, SSA 60, AND SSB) (SO) Routine 02/20/2025 10:34 AM EST SS-B antibody positive LAWRENCE (HECTOR) ANTIBODY, IGG (SO) Routine 02/20/2025 10:34 AM EST SS-B antibody positive LAWRENCE/MANIPULATOR OPERATOR (HECTOR) ANTIBODY, IGG (SO) Routine 02/20/2025 10:34 AM EST SS-B antibody positive THYROID PEROXIDASE ANTIBODY Routine 02/20/2025 10:34 AM EST SS-B antibody positive RHEUMATOID FACTOR, PLASMA Routine 02/20/2025 10:34 AM EST Seronegative rheumatoid arthritis of multiple sites (CMS/HCC) CYCLIC CITRUL PEPTIDE ANTIBODY IGG Routine 02/20/2025 10:34 AM EST Seronegative rheumatoid arthritis of multiple sites (CMS/HCC) HLA B27 TYPING Routine 02/20/2025 10:34 AM EST Inflammatory polyarthropathy (CMS/HCC) ACUTE HEPATITIS PANEL Routine 02/20/2025 10:34 AM EST High risk medication use QUANTIFERON TB GOLD PLUS Routine 02/20/2025 10:34 AM EST High risk medication use HEMOGLOBIN A1C Routine 02/20/2025 10:34 AM EST Pyoderma gangrenosum PROTEIN ELECTROPHORESIS, SERUM Routine 02/20/2025 10:34 AM EST SS-B antibody positive CBC WITH AUTO DIFFERENTIAL Routine 02/20/2025 10:34 AM EST Seronegative rheumatoid arthritis of multiple sites (CMS/HCC) COMPREHENSIVE METABOLIC PANEL, PLASMA Routine 02/20/2025 10:34 AM EST Seronegative rheumatoid arthritis of multiple sites (CMS/HCC) PROTEIN, URINE, RANDOM WITH CREATININE Routine 02/20/2025 10:30 AM EST SS-B antibody positive from Last 3 Months Results * XR Hand and Wrist Bilateral [...] IMG XR PROCEDURES Final R esult * Hepatitis C Virus (HCV) Quantitative PCR (02/20/2025 10:34 AM EST) Hepatitis C Virus (HCV) Quantitative Interpretation Not Detected Not Detected. 02/21/2025 4:58 PM EST [facility] Blood Venous blood specimen / Unknown Venipuncture / Unknown 02/20/2025 10:34 AM EST 02/20/2025 10:35 AM EST Narrative [facility] - 02/21/2025 4:58 PM EST The Olguin M2000 HCV test is a Real Time in vitro nucleic acid amplification test for the quantitation of Hepatitis C Viral (HCV) RNA in human serum in HCV-infected individuals. It is intended for use as an aid in the management of HCV-infected individuals undergoing anti-viral therapy. The dynamic range for this test is log10 = 1.08 to 8.00 and/or 12 to 100,000,000 IU/mL. The limit of detection (LOD) for this assay is 12 IU/mL and the limit of quantitation (LOQ) is 12 IU/mL. This assay is FDA approved for clinical use. [facility] BLOOD ORDERABLES Theresa l Result Performing Organization Address City/[facility] Co de Phone Number [facility] [address] [place] [address] * DNA Isolation and Hold (HLA) (02/20/2025 10:34 AM EST) Blood Venous blood specimen / Unknown Venipuncture / Unknown 02/20/2025 10:34 AM EST 02/20/2025 10:35 AM EST [facility] MOLECULAR DIAGNOSTICS ORDERABLES Final Result Performing Organization Address City/[facility]/ZIP Co de Phone Number [facility] [address] * Total Protein, Serum (02/20/2025 10:34 AM EST) Total Protein 7.3 6.2 - 7.7 g/dL 02/20/2025 12:07 PM EST [facility] Blood Venous blood specimen / Unknown Venipuncture / Unknown 02/20/2025 10:34 AM EST 02/20/2025 10:35 AM EST [facility] BLOOD ORDERABLES Theresa l Result [facility] [address] [place] [address] * Protein Electrophoresis, Serum (02/20/2025 10:34 AM EST) Albumin Electrophoresis, Serum 4.4 3.6 - 4.7 g/dL 02/21/2025 3:09 AM EST [facility] Alpha 1 Globulin Electrophoresis, Serum 0.3 0.2 - 0.4 g/dL 02/21/2025 3:09 AM EST [facility] Alpha 2 Globulin Electrophoresis, Serum 0.6 0.5 - 0.9 g/dL 02/21/2025 3:09 AM EST [facility] Beta 1 Globulin Electrophoresis, Serum 0.5 0.3 - 0.5 g/dL 02/21/2025 3:09 AM EST [facility] Beta 2 Globulin Electrophoresis, Serum 0.4 0.2 - 0.5 g/dL 02/21/2025 3:09 AM EST [facility] Gamma Globulin Electrophoresis, Serum 1.1 0.6 - 1.5 g/dL 02/21/2025 3:09 AM EST [facility] Interpretation, Serum Protein Electrophoresis Pathology report to follow. 02/21/2025 3:09 AM EST [facility] Blood Venous blood specimen / Unknown Venipuncture / Unknown 02/20/2025 10:34 AM EST 02/20/2025 10:35 AM EST Soco M Hein PA LAB BLOOD ORDERABLES Theresa l Result [facility] [address] [place] [address] * Lawrence (HECTOR) Antibody, IgG (02/20/2025 10:34 AM EST) Pathologist [facility] Lawrence (HECTOR) Antibody, IgG 1 0 - 40 AU/mL 02/22/2025 1:14 PM EST [employer] ([employer]) Serum 02/20/2025 10:3 4 AM EST 02/20/2025 10:35 AM EST Narrative [facility] ([facility]) - 02/22/2025 1:14 PM EST INTERPRETIVE INFORMATION: [...] associations with SLE clinical manifestations. Performed By: [employer] [address] [place] [id number] Fiberglass Insulation Installer: Riley Bryson MD, PhD CLIA Number: [id number] Soco Hein PA LAB REF LAB BLOOD AND FLU ID ORD Final Result Performing Organization Address [facility]/ZIP Co de Phone Number [facility] ([facility]) [address] [place] [address] * Protein electrophoresis serum, pathologist interpretation (02/20/2025 10:34 AM EST) Pathologist [facility] Clinical Diagnosis, SPEP SS-B antibody positive 02/23/2025 2:27 PM EST [facility] Interpretation , SPEP NORMAL SERUM PATTERN: Serum protein electrophoresis demonstrates no significant abnormality. M protein(s) not observed. A resident was involved in the service. I attest I examined the relevant preparations for the specimens and confirmed the diagnosis or interpretation. 02/23/2025 2:27 PM EST [facility] Pathologist Signature, SPEP Reviewed by: Jez Hernandez MD 02/23/2025 2:27 PM EST [facility] LAB CP ASR DISCLAIMER Yes 02/23/2025 2:27 PM EST [facility] Blood Venous blood specimen / Unknown Venipuncture / Unknown 02/20/2025 10:34 AM EST 02/20/2025 10:35 AM EST [facility] PATHOLOGY ORDERABLES Final Result [facility] [address] [place] [address] * (ABNORMAL) ENAII (02/20/2025 10:34 AM EST) SSA-52 (RO52) (HECTOR) Antibody, IgG 2 0 - 40 AU/mL 02/22/2025 1:08 PM EST [facility] ([employer]) SSA-60 (RO60) (HECTOR) Antibody, IgG 0 0 - 40 AU/mL 02/22/2025 1:08 PM EST [facility] ([employer]) SSB (LA) (HECTOR) Antibody, IgG 96(H) 0 - 40 AU/mL 02/22/2025 1:08 PM EST [facility] ([employer]) Blood Venous blood specimen / Unknown Venipuncture / Unknown 02/20/2025 10:34 AM EST 02/20/2025 10:35 AM EST [facility] ([employer]) - 02/22/2025 1:08 PM EST INTERPRETIVE INFORMATION: [...] (PSS) also have this antibody. Performed By: [employer] [address] [place] [address] Fiberglass Insulation Installer: Riley Bryson MD, PhD CLIA Number: [id number] [facility] BLOOD ORDERABLES Theresa l Result Tutor Assignment) [address] [place] [address] * ENAI (02/20/2025 10:34 AM EST) Lawrence/MANIPULATOR OPERATOR (HECTOR) Ab, IgG 4 0 - 19 Units 02/22/2025 11:39 AM EST Tutor Assignment) Blood Venous blood specimen / Unknown Venipuncture / Unknown 02/20/2025 10:34 AM EST 02/20/2025 10:35 AM EST Narrative Tutor Assignment) - 02/22/2025 11:39 AM EST INTERPRETIVE INFORMATION: Lawrence/MANIPULATOR OPERATOR (HECTOR) Antibody, IgG 19 Units or Less ............. Negative 20 to 39 Units ............... Weak Positive 40 to 80 Units ............... Moderate Positive 81 Units or greater .......... Strong Positive Lawrence/MANIPULATOR OPERATOR antibodies are frequently seen in patients with mixed connective tissue disease (MCTD) and are also associated with other systemic autoimmune rheumatic diseases (SARDs) such as systemic lupus erythematosus (SLE), systemic sclerosis, and myositis. Antibodies targeting the Lawrence/MANIPULATOR OPERATOR antigenic complex also recognize Lawrence antigens, therefore, the Lawrence antibody response must be considered when interpreting these results. Performed By: [employer] [address] [place] [address] Fiberg[employer] Insulation Installer: Riley Bryson MD, PhD CLIA Number: [id number] [facility] BLOOD ORDERABLES Theresa l Result Performing Organization Address City/[facility] Co de Phone Number [employer] ([facility]) [address] [place] [address] * HLA B27 Typing (02/20/2025 10:34 AM EST) Blood Venous blood specimen / Unknown Venipuncture / Unknown 02/20/2025 10:34 AM EST 02/20/2025 10:35 AM EST [facility] BLOOD ORDERABLES Theresa l Result Performing Organization Address [facility] Co de Phone Number [facility] [address] * Thyroid Peroxidase Antibody (02/20/2025 10:34 AM EST) Thyroid Peroxidase Antibody <5 <=8 IU/mL 02/20/2025 12:37 PM EST [facility] Blood Venous blood specimen / Unknown Venipuncture / Unknown 02/20/2025 10:34 AM EST 02/20/2025 10:35 AM EST [facility] BLOOD ORDERABLES Theresa l Result Performing Organization Address City/[facility] Co de Phone Number [facility] [address] [place] [address] * Cyclic Citrul Peptide Antibody IgG (02/20/2025 10:34 AM EST) Cyclic Citrul Peptide Antibody IgG <5.0 <=5.0 U/mL 02/20/2025 1:01 PM EST [facility] Blood Venous blood specimen / Unknown Venipuncture / Unknown 02/20/2025 10:34 AM EST 02/20/2025 10:35 AM EST [facility] BLOOD ORDERABLES Theresa mary Result [facility] [address] [place] [address] * Double-Stranded DNA (dsDNA) Antibody, IgG by IFA (02/20/2025 10:34 AM EST) Double-Strande d DNA (dsDNA) Ab IgG IFA <1:10 <1:10 02/23/2025 9:36 PM EST [facility] ([facility]) Blood Venous blood specimen / Unknown Venipuncture / Unknown 02/20/2025 10:34 AM EST 02/20/2025 10:[address] [facility] ([facility]) - 02/23/2025 9:36 PM EST INTERPRETIVE [...] recommendations for testing may be found at [email or web address]. Performed By: [employer] [address] [place] [id number] [employer] Ins[employer] Installer: Riley Bryson MD, PhD CLIA Number: [id number] [facility] BLOOD ORDERABLES Theresa l Result Performing Organization Address City/[facility]/ZIP Co de Phone Number [facility] ([facility]) [address] [place] [address] * (ABNORMAL) Hepatitis panel, acute (02/20/2025 10:34 AM EST) Pathologist [facility] Hepatitis B Surf Antigen Negative Negative 02/20/2025 2:02 PM EST [facility] Hepatitis C Antibody Positive(A) Negative 02/20/2025 2:02 PM EST [facility] Comment:This specimen is bairon ng sent for confirmation by RT-PCR. Hepatitis A Antibody IgM Negative Negative 02/20/2025 2:02 PM EST [facility] Hepatitis B Core Antibody IgM Negative Negative 02/20/2025 2:02 PM EST [facility] Blood Venous blood specimen / Unknown Venipuncture / Unknown 02/20/2025 10:34 AM EST 02/20/2025 10:35 AM EST [facility] BLOOD ORDERABLES Theresa l Result Performing Organization Address City/[facility] Co de Phone Number [facility] [address] [place] [address] * Quantiferon TB Gold Plus (02/20/2025 10:34 AM EST) Pathologist [facility] Quantiferon TB Gold Plus Result Negative Negative 02/21/2025 12:36 PM EST [facility] TB Nill Value 0.0186 IU/mL 02/21/2025 12:36 PM EST [facility] TB Antigen 1 0.0757 IU/mL 02/21/2025 12:36 PM EST [facility] TB Antigen 2 0.0894 IU/mL 02/21/2025 12:36 PM EST [facility] TB Mitogen 9.9814 IU/mL 02/21/2025 12:36 PM EST [facility] Blood Venous blood specimen / Unknown Venipuncture / Unknown 02/20/2025 10:34 AM EST 02/20/2025 10:35 AM EST Narrative [facility] - 02/21/2025 12:36 PM EST Responses to the Mitogen positive control and occasionally to TB antigen can be above the assay range. For calculation purposes: IFN-gamma values > 10 IU/mL are handled as 10 IU/mL. [facility] BLOOD ORDERABLES Theresa l Result Performing Organization Address City/[facility]/ZIP Co de Phone Number [facility] [address] [place] [address] * Sedimentation Rate, Automated (02/20/2025 10:34 AM EST) Sedimentation Rate 6 <15 mm/hr 2024 12:11 PM EST [facility] Blood Venous blood specimen / Unknown Venipuncture / Unknown 02/20/2025 10:34 AM EST 02/20/2025 10:35 AM EST [facility] BLOOD ORDERABLES Theresa l Result Performing Organization Address City/[facility] Co de Phone Number [facility] [address] [place] [address] * (ABNORMAL) CBC and Differential (02/20/2025 10:34 AM EST) WBC Count 12.36(H) 3.70 - 10.30 10*3/uL LAB HEMATOLOGY METHOD 02/20/2025 11:59 AM EST [facility] RBC Count 5.49 4.60 - 6.10 10*6/uL LAB HEMATOLOGY METHOD 02/20/2025 11:59 AM EST [facility] HGB 18.0(H) 13.7 - 17.5 g/dL LAB HEMATOLOGY METHOD 02/20/2025 11:59 AM EST [facility] HCT 52.3(H) 40.0 - 51.0 % LAB HEMATOLOGY METHOD 02/20/2025 11:59 AM EST [facility] Platelet Count 388(H) 155 - 369 10*3/uL LAB HEMATOLOGY METHOD 02/20/2025 11:59 AM EST [facility] MCV 95 79 - 98 fL LAB HEMATOLOGY METHOD 02/20/2025 11:59 AM [facility] MCH 32.8(H) 26.0 - 32.0 pg LAB HEMATOLOGY METHOD 02/20/2025 11:59 AM [facility] MCHC 34.4 30.7 - 35.5 g/dL LAB HEMATOLOGY METHOD 02/20/2025 11:59 AM [facility] RDW 12.5 11.5 - 14.5 % LAB HEMATOLOGY METHOD 02/20/2025 11:59 AM [facility] MPV 10.4 8.8 - 12.5 fL LAB HEMATOLOGY METHOD 02/20/2025 11:59 AM [facility] nRBC 0.0 <=0.0 per 100 WBCs LAB HEMATOLOGY METHOD 02/20/2025 11:59 AM [facility] Differential Type Automated LAB HEMATOLOGY METHOD 02/20/2025 11:59 AM [facility] Neutrophils % 60 % LAB HEMATOLOGY METHOD 02/20/2025 11:59 AM [facility] Lymphocytes % 26 % LAB HEMATOLOGY METHOD 02/20/2025 11:59 AM [facility] Monocytes % 8 % LAB HEMATOLOGY METHOD 02/20/2025 11:59 AM [facility] Eosinophils % 4 % LAB HEMATOLOGY METHOD 02/20/2025 11:59 AM [facility] Basophils % 1 % LAB HEMATOLOGY METHOD 02/20/2025 11:59 AM [facility] Immature Granulocytes % 1 % LAB HEMATOLOGY METHOD 02/20/2025 11:59 AM EST [facility] Neutrophils Absolute 7.51(H) 1.60 - 6.10 10*3/uL LAB HEMATOLOGY METHOD 02/20/2025 11:59 AM [facility] Lymphocytes Absolute 3.21 1.20 - 3.90 10*3/uL LAB HEMATOLOGY METHOD 02/20/2025 11:59 AM EST [facility] Monocytes Absolute 1.02(H) 0.30 - 0.90 10*3/uL LAB HEMATOLOGY METHOD 02/20/2025 11:59 AM [facility] Eosinophils Absolute 0.46 0.00 - 0.50 10*3/uL LAB HEMATOLOGY METHOD 02/20/2025 11:59 AM [facility] Basophils Absolute 0.10 0.00 - 0.10 10*3/uL LAB HEMATOLOGY METHOD 02/20/2025 11:59 AM EST [facility] Immature Granulocytes Absolute 0.06 0.00 - 0.06 10*3/uL LAB HEMATOLOGY METHOD 02/20/2025 11:59 AM EST [facility] Blood Venous blood specimen / Unknown Venipuncture / Unknown 02/20/2025 10:34 AM EST 02/20/2025 10:35 AM EST Narrative [facility] - 02/20/2025 11:59 AM EST Therapeutic decision making should be based on absolute values, rather than percentages. [facility] BLOOD ORDERABLES Theresa l Result [facility] [address] [place] [address] * Rheumatoid Factor, Plasma (02/20/2025 10:34 AM EST) Rheumatoid Factor, Plasma <10 <14 IU/mL 02/20/2025 12:21 PM EST [facility] Blood Venous blood specimen / Unknown Venipuncture / Unknown 02/20/2025 10:34 AM EST 02/20/2025 10:35 AM EST [facility] BLOOD ORDERABLES Theresa l Result [facility] [address] [place] [address] * C3 Complement (02/20/2025 10:34 AM EST) C3 Complement 145 84 - 166 mg/dL 02/20/2025 12:07 PM EST [facility] Blood Venous blood specimen / Unknown Venipuncture / Unknown 02/20/2025 10:34 AM EST 02/20/2025 10:35 AM EST [facility] BLOOD ORDERABLES Theresa l Result [facility] [address] [place] [address] * C4 Complement (02/20/2025 10:34 AM EST) C4 Complement 24 13 - 36 mg/dL 02/20/2025 12:07 PM EST [facility] Blood Venous blood specimen / Unknown Venipuncture / Unknown 02/20/2025 10:34 AM EST 02/20/2025 10:35 AM EST [facility] BLOOD ORDERABLES Theresa l Result [facility] [address] [place] [address] * C-Reactive Protein, Plasma (02/20/2025 10:34 AM EST) CRP, Plasma 4.9 <=8.0 mg/L 02/20/2025 12:21 PM EST [facility] Blood Venous blood specimen / Unknown Venipuncture / Unknown 02/20/2025 10:34 AM EST 02/20/2025 10:35 AM EST Narrative [facility] - 02/20/2025 12:21 PM EST This CRP test is appropriate for assessment of infection, systemic inflammation and/or tissue injury. To assess cardiovascular disease risk order high sensitivity CRP (CRPH). [facility] BLOOD ORDERABLES Theresa l Result [facility] [address] [place] [address] * Antinuclear Antibody (LIONEL), HEp-2, IgG (02/20/2025 10:34 AM EST) LIONEL INTERPRETIVE COMMENT See Note 02/23/2025 12:18 PM EST [facility] ([facility]ER) Anti Nuc Ab Screen <1:80 <1:80 02/23/2025 12:18 PM EST [facility] ([facility]) Blood Venous blood specimen / Unknown Venipuncture / Unknown 02/20/2025 10:34 AM EST 02/20/2025 10:[address] [facility]) - 02/23/2025 12:18 PM EST Clinical Interpretation: [...] not necessarily rule out SARD. Performed By: [employer] [address] [place] [address] [employer] Ins[employer] Installer: Riley Bryson MD, PhD CLIA Number: [id number] [facility] BLOOD ORDERABLES Theresa l Result [facility] ([facility]) [address] [place], [place] [id number] * (ABNORMAL) Hemoglobin A1c (02/20/2025 10:34 AM EST) Hemoglobin A1c 5.7(H) <5.7 % 02/20/2025 12:49 PM EST [facility] Blood Venous blood specimen / Unknown Venipuncture / Unknown 02/20/2025 10:34 AM EST 02/20/2025 10:35 AM EST Narrative [facility] - 02/20/2025 12:49 PM EST HA1C Interpretive Data: Diagnosis of Diabetes: Diabetic > or = 6.5% Pre-diabetic 5.7 to 6.4% Non-diabetic < or = 5.6% Glycemic Targets for Type I and Type II Diabetics: Non- Adults <7.0% Adults <6.0% Children and Adolescents <7.5% Source: [place] [employer]. Standards of medical care in diabetes,2017. Diabetes Care.2017:40 (suppl 1):S1-S135. us [facility] BLOOD ORDERABLES Theresa hernandez Result [facility] [address] [place] [address] * (ABNORMAL) Comprehensive Metabolic Panel, Plasma (02/20/2025 10:34 AM EST) Glucose, Plasma 98 74 - 99 mg/dL 02/20/2025 12:21 PM EST [facility] BUN, Plasma 10 7 - 21 mg/dL 02/20/2025 12:21 PM EST [facility] Creatinine, Plasma 0.92 0.70 - 1.20 mg/dL 02/20/2025 12:21 PM EST [facility] BUN/Creatinine Ratio 11 02/20/2025 12:21 PM EST [facility] Sodium, Plasma 138 136 - 145 mmol/L 02/20/2025 12:21 PM EST [facility] Potassium, Plasma 4.4 3.6 - 4.9 mmol/L 02/20/2025 12:21 PM EST [facility] Chloride, Plasma 102 97 - 107 mmol/L 02/20/2025 12:21 PM EST [facility] CO2, Plasma 28 22 - 29 mmol/L 02/20/2025 12:21 PM EST [facility] Anion Gap 8 6 - 16 mmol/L 02/20/2025 12:21 PM EST [facility] Total Calcium, Plasma 9.7 8.9 - 10.2 mg/dL 02/20/2025 12:21 PM EST [facility] Total Protein 7.7 6.3 - 7.9 g/dL 02/20/2025 12:21 PM EST [facility] Albumin, Plasma 4.7 3.5 - 5.2 g/dL 02/20/2025 12:21 PM EST [facility] AST, Plasma 36 10 - 50 U/L 02/20/2025 12:21 PM EST [facility] ALT, Plasma 54(H) 10 - 50 U/L 02/20/2025 12:21 PM EST [facility] Alkaline Phosphatase, Plasma 122(H) 40 - 115 U/L 02/20/2025 12:21 PM EST [facility] Total Bilirubin, Plasma 0.7 0.2 - 1.1 mg/dL 02/20/2025 12:21 PM EST [facility] eGFRcr 107.8 mL/min/1.7 3m*2 02/20/2025 12:21 PM EST [facility] Comment:Reported eGFRcr in m L/min/1.73m2 is based the CKD-EPI 2020 equation that does not use a race coefficient. Blood Venous blood specimen / Unknown Venipuncture / Unknown 02/20/2025 10:34 AM EST 02/20/2025 10:35 AM EST [facility] BLOOD ORDERABLES Theresa l Result [facility] [address] [place] [address] * Protein, Random, Urine with Creatinine (02/20/2025 10:30 AM EST) Protein, Urine <6 mg/dL 02/20/2025 12:19 PM EST [facility] Creatinine, Urine 96 mg/dL 02/20/2025 12:19 PM EST [facility] Protein/Creatin ine Ratio 02/20/2025 12:19 PM EST [facility] Urine Urine specimen obtained by clean catch procedure / Unknown Non-blood Collection / Unknown 02/20/2025 10:30 AM EST 02/20/2025 10:30 AM EST [facility] URINE ORDERABLES Theresa l Result [facility] [address] [place] [address] from Last 3 Months Insurance [facility] Care Teams Cashier Courtesy Booth Relationship Specialty Start Date End Date Loulou Coulter PA [address] [place] [address] PCP - General 02/05/25 Taras Monreal DDS [address] [facility] [address] [place] [id number] Dentist Dentist 11/02/23 Juan Ochoa Dentist 11/02/23
--- OUTSIDE RECORDS SUMMARY | 2025-04-05 01:19 | XMS_ITS | Encounter Summary ---
Author Organization [facility] Address [address] [place] [address] Care Team Providers Care Clinical Lab Specialist Name Role Phone Taras Monreal DDS Unavailable [phone] Juan Ochoa Unavailable Unavailable Loulou Coulter Primary Care Provider [phone] Encounter Details Date Type Department Care Team (Late st Contact Info) Description 02/26/2025 Orders Only [facility] [address] [place] [address] [place] Nails Seronegative rheumatoid arthritis of multiple sites (CMS/[facility]) Social History Tobacco Use Types Packs/Day Years [...] [facility] [address] [place] [address] Soco Hein PA [address] [place] [address] documented as of this encounter Visit Diagnoses Diagnosis Seronegative rheumatoid arthritis of multiple sites (CMS/[facility]) documented in this encounter Additional Health Concerns Assessment Noted Time PHQ-9 Depression Total Score: 0 02/21/20 8:28 AM EST A fall risk assessment has been complete d for the patient 02/20/2025 8:28 AM EST A Body Mass Index follow-up plan has been documented for the patient 02/20/2025 10:08 AM EST documented as of this encounter Care Teams Clinical Lab Specialist Relationship Specialty Start Date End Date Loulou Coulter PA [address] [place] [address] PCP - General 02/05/25 Tar[facility] DDS [address] [facility] [address] [place] [address] Dentist Dentist 11/02/23 Juan Ochoa Dentist 11/02/23 documented as of this encounter
--- OUTSIDE RECORDS SUMMARY | 2025-04-05 01:19 | XMS_ITS ---
Author Organization [facility] Address [address] [place] [address] Care Team Providers Care Sole Layer Hand Name Role Phone Taras Monreal DDS Unavailable [phone] Juan Ochoa Unavailable Unavailable Loulou Coulter Primary Care Provider [phone] Hepatitis C Program Status:Closed (Closed) Program category:Social Work Start date:02/20/2025 Enrollment reason:HCV End date:02/20/2025 Close reason:HCV RNA Negative Continued Care and Services Coordination
--- OUTSIDE RECORDS SUMMARY | 2025-04-05 01:19 | XMS_ITS | Data Portability ---
Author Organization [employer] [facility] Address [address] [place] [address] Assessment No assessment recorded. Plan of Treatment Reminders Order Date Submit Date Provider Last Modified By Organization Details Last Modified Time Details Appointments None recorded. Lab unlisted lab - toxassure flex 19, [id number] [address] [facility], [address] [place] [address], [id number], 5 02:07:01 unlisted lab - toxassure flex 19, [id number] [address] [facility], [address] [place] [address], [address], 4 10:06:52 Referral burn referral 2024 025 [email or web address], [address] [place] [address], [address], 5 10:43:26 Procedures None recorded. Surgeries None recorded. Imaging None recorded. Medication Orders doxycycline monohydrate 100 mg capsule 2024 025 [facility], [address] [place] [address], [id number], 5 05:01:22 prednisone 20 mg tablet 2024 025 [facility], [address] [address] [place], [id number], 05:01:14 Patient TargetsNo targets recorded. Patient Instructions Encounter Date Encounter Id Patient Instructions Last Modified By Organization Details Last Modified Time 03/07/2024 [id number] Quitting Tobacco : Care Instructions [email or web address] Not available 03/08/2024 11:11:12 learning about mood disorders [email or web address] Not available 03/08/2024 11:11:12 body mass index: care instructions [email or web address] Not available 03/08/2024 11:06:23 learning about healthy weight Not available 03/08/2024 11:06:23 attention defici t hyperactivity disorder (ADHD) in adults: care instructions [email or web address] Not available 03/08/2024 11:06:23 02/06/2025 [id number] attention defici t hyperactivity disorder (ADHD) in adults: care instructions [email or web address] Not available 02/06/2025 17:52:22 sjogren's syndrome: care instructions Not available 02/06/2025 14:21:58 Reason for Referral Burn Referral for Pyoderma g angrenosum Referring Physician: Loulou Coulter [facility], Encounter Date: 02/06/2025 Results Created Date Observation Date Name Description Value Unit Range Abnormal Flag Note LastModifiedBy Organization Detail LastModifiedTime 03/07/20 24 03/10/2024 TOXAS SURE FLEX 19, UR summary report FINAL ===== ===== ===== ===== ===== ===== ===== ===== ===== ===== ===== ===== ===== === ToxAs sure Flex 19, Ur ===== ===== ===== ===== ===== ===== ===== ===== ===== ===== ===== ===== ===== === Test Resul t Flag Units NO DRUGS DETEC PETTY. ===== ===== ===== ===== ===== ===== ===== ===== ===== ===== ===== ===== ===== === Test Resul t Flag Units Ref Range Creat inine 66 mg/dL >=20 ===== ===== ===== ===== ===== [...] ===== ===== ===== === Not Available [facility] ([facility]) [address] [place], [address], 03/10/2024 10:06:52 03/07/20 24 03/10/2024 TOXAS SURE FLEX 19, UR pdf . Not Available [facility] ([facility]) [address] [place], [address], 03/10/2024 10:06:52 03/07/20 24 03/10/2024 TOXAS SURE FLEX 19, UR creatinine 66 mg/dL REFER ENCE RANGE : Ref Range >=20 Not Available [facility] ([facility]) [address] [place], [address], 03/10/2024 10:06:52 03/07/20 24 03/10/2024 TOXAS SURE FLEX 19, UR amphetamines ia Negati ve NG/mL cutoff :300 Not Available [facility] ([facility]) [address] [place], [address], 03/10/2024 10:06:52 03/07/20 24 03/10/2024 TOXAS SURE FLEX 19, UR benzodiazepi jazzmine Negati ve Not Available [facility] ([facility]) [address] [place], [address], 03/10/2024 10:06:52 03/07/20 24 03/10/2024 TOXAS SURE FLEX 19, UR diazepam Not Detect ed NG/mg _crea t Not Available [facility] ([facility]) [address] [place], [address], 03/10/2024 10:06:52 03/07/20 24 03/10/2024 TOXAS SURE FLEX 19, UR desmethyldia zepam Not Detect ed NG/mg _crea t Not Available [facility] ([facility]) [address] [place], [address], 03/10/2024 10:06:52 03/07/20 24 03/10/2024 TOXAS SURE FLEX 19, UR oxazepam Not Detect ed NG/mg _crea t Not Available [facility] ([facility]) [address] [place], [address], 03/10/2024 10:06:52 03/07/20 24 03/10/2024 TOXAS SURE FLEX 19, UR temazepam Not Detect ed NG/mg _crea t Expec petty metab olism of benzo diaze pine class drugs : Paren t Drug Detec petty Metab olite s ----- ----- - ----- ----- ----- ----- Diaze deborah: Desme thyld iazep am, Temaz epam, Oxaze deborah Chlor diaze poxid e: Desme thyld iazep am, Oxaze deborah Clora zepat e: Desme thyld iazep am, Oxaze deborah Halaz epam: Desme thyld iazep am, Oxaze deborah Temaz epam: Oxaze deborah Oxaze deborah: None Not Available [facility] ([facility]) [address] [place], [address], 03/10/2024 10:06:52 03/07/20 24 03/10/2024 TOXAS SURE FLEX 19, UR alprazolam Not Detect ed NG/mg _crea t Not Available [facility] ([facility]) [address] [place], [address], 03/10/2024 10:06:52 03/07/20 24 03/10/2024 TOXAS SURE FLEX 19, UR alpha-hydrox yalprazolam Not Detect ed NG/mg _crea t Not Available [facility] ([facility]) [address] [place], [address], 03/10/2024 10:06:52 03/07/20 24 03/10/2024 TOXAS SURE FLEX 19, UR desalkylflur azepam Not Detect ed NG/mg _crea t Not Available [facility] ([facility]) [address] [place], [address], 03/10/2024 10:06:52 03/07/20 24 03/10/2024 TOXAS SURE FLEX 19, UR lorazepam Not Detect ed NG/mg _crea t Not Available [facility] ([facility]) [address] [place], [address], 03/10/2024 10:06:52 03/07/20 24 03/10/2024 TOXAS SURE FLEX 19, UR alpha-hydrox ytriazolam Not Detect ed NG/mg _crea t Not Available [facility] ([facility]) [address] [place], [address], 03/10/2024 10:06:52 03/07/20 24 03/10/2024 TOXAS SURE FLEX 19, UR clonazepam Not Detect ed NG/mg _crea t Not Available [facility] ([facility]) [address] [facility], [place], [address], 03/10/2024 10:06:52 03/07/20 24 03/10/2024 TOXAS SURE FLEX 19, UR 7-aminoclona zepam Not Detect ed NG/mg _crea t Not Available [facility] ([facility]) [address] [place], [address], 03/10/2024 10:06:52 03/07/20 24 03/10/2024 TOXAS SURE FLEX 19, UR midazolam Not Detect ed NG/mg _crea t Not Available [facility] ([facility]) [address] [facility], [place], [address], 03/10/2024 10:06:52 03/07/20 24 03/10/2024 TOXAS SURE FLEX 19, UR alpha-hydrox ymidazolam Not Detect ed NG/mg _crea t Not Available [facility] ([facility]) [address] [facility], [place], [address], 03/10/2024 10:06:52 03/07/20 24 03/10/2024 TOXAS SURE FLEX 19, UR flunitrazepa m Not Detect ed NG/mg _crea t Not Available [facility] ([facility]) [address] [place], [address], 03/10/2024 10:06:52 03/07/20 24 03/10/2024 TOXAS SURE FLEX 19, UR desmethylflu nitrazepam Not Detect ed NG/mg _crea t Not Available [facility] ([facility]) [address] [place], [address], 03/10/2024 10:06:52 03/07/20 24 03/10/2024 TOXAS SURE FLEX 19, UR cocaine metabolite ia Negati ve NG/mL cutoff :150 Not Available [facility] ([facility]) [address] [place] [address], [address], 03/10/2024 10:06:52 03/07/20 24 03/10/2024 TOXAS SURE FLEX 19, UR ethanol biomarkers ia Negati ve NG/mL cutoff :500 Not Available [facility] ([facility]) [address] [place], [address], 03/10/2024 10:06:52 03/07/20 24 03/10/2024 TOXAS SURE FLEX 19, UR cannabinoids ia Negati ve NG/mL cutoff :20 Not Available [facility] ([facility]) [address] [place], [address], 03/10/2024 10:06:52 03/07/20 24 03/10/2024 TOXAS SURE FLEX 19, UR 6-acetylmorp griselda ia Negati ve NG/mL cutoff :10 Not Available [facility] ([facility]) [address] [place], [address], 03/10/2024 10:06:52 03/07/20 24 03/10/2024 TOXAS SURE FLEX 19, UR opiate class ia Negati ve NG/mL cutoff :100 Not Available [facility] ([facility]) [address] [place] [address], [address], 03/10/2024 10:06:52 03/07/20 24 03/10/2024 TOXAS SURE FLEX 19, UR oxycodone class ia Negati ve NG/mL cutoff :100 Not Available [facility] ([facility]) [address] [place] [address], [address], 03/10/2024 10:06:52 03/07/20 24 03/10/2024 TOXAS SURE FLEX 19, UR methadone ia Negati ve NG/mL cutoff :100 Not Available [facility] ([facility]) [address] [place], [address], 03/10/2024 10:06:52 03/07/20 24 03/10/2024 TOXAS SURE FLEX 19, UR methadone mtb ia Negati ve NG/mL cutoff :100 Not Available [facility] ([facility]) [address] [place], [address], 03/10/2024 10:06:52 03/07/20 24 03/10/2024 TOXAS SURE FLEX 19, UR buprenorphin e ia Negati ve NG/mL cutoff :5.0 Not Available [facility] ([facility]) [address] [place], [address], 03/10/2024 10:06:52 03/07/20 24 03/10/2024 TOXAS SURE FLEX 19, UR fentanyl ia Negati ve NG/mL cutoff :2.0 Not Available [facility] ([facility]) [address] [place], [address], 03/10/2024 10:06:52 03/07/20 24 03/10/2024 TOXAS SURE FLEX 19, UR tapentadol ia Negati ve NG/mL cutoff :200 Not Available [facility] ([facility]) [address] [place], [address], 03/10/2024 10:06:52 03/07/20 24 03/10/2024 TOXAS SURE FLEX 19, UR propoxyphene ia Negati ve NG/mL cutoff :300 Not Available [facility] ([facility]) [address] [place], [address], 03/10/2024 10:06:52 03/07/20 24 03/10/2024 TOXAS SURE FLEX 19, UR tramadol ia Negati ve NG/mL cutoff :200 Not Available [facility] ([facility]) [address] [place], [address], 03/10/2024 10:06:52 03/07/20 24 03/10/2024 TOXAS SURE FLEX 19, UR methylphenid ate ia Negati ve NG/mL cutoff :100 Not Available [facility] ([facility]) [address] [place], [address], 03/10/2024 10:06:52 03/07/20 24 03/10/2024 TOXAS SURE FLEX 19, UR barbiturates ia Negati ve NG/mL cutoff :200 Not Available [facility] ([facility]) [address] [place], [address], 03/10/2024 10:06:52 03/07/20 24 03/10/2024 TOXAS SURE FLEX 19, UR phencyclidin e ia Negati ve NG/mL cutoff :25 Not Available [facility] ([facility]) [address] [place], [address], 03/10/2024 10:06:52 03/07/20 24 03/10/2024 TOXAS SURE FLEX 19, UR gabapentin ia Negati ve ug/mL cutoff :1.0 Not Available [facility] ([facility]) [address] [place], [address], 03/10/2024 10:06:52 03/07/20 24 03/10/2024 TOXAS SURE FLEX 19, UR anticonvulsa nts Negati ve Not Available [facility] ([facility]) [address] [place], [address], 03/10/2024 10:06:52 03/07/20 24 03/10/2024 TOXAS SURE FLEX 19, UR pregabalin Not Detect ed Not Available [facility] ([facility]) [address] [place], [address], 03/10/2024 10:06:52 03/07/20 24 03/10/2024 TOXAS SURE FLEX 19, UR carisoprodol ia Negati ve NG/mL cutoff :100 Not Available [facility] ([facility]) [address], [place], [address], 03/10/2024 10:06:52 02/07/20 25 02/11/2025 TOXAS SURE FLEX 19, UR summary report [...] . Rital inic acid is an expec petty metab olite of methy lphen idate . [...] spring consu ltati on, pleas e call [phone]. ===== ===== ===== ===== ===== ===== ===== ===== ===== ===== ===== ===== ===== === Not Available [facility] ([facility]) [address] [place], [address], 02/11/2025 02:06:57 02/07/2002/11/2025 TOXAS SURE FLEX 19, UR pdf . Not Available [facility] ([facility]) [address] [place], [address], 02/11/2025 02:06:57 02/07/2002/11/2025 TOXAS SURE FLEX 19, UR creatinine 122 mg/dL >=20 REFER ENCE RANGE : Ref Range >=20 Not Available [facility] ([facility]) [address] [place], [address], 02/11/2025 02:06:57 02/07/2002/11/2025 TOXAS SURE FLEX 19, UR amphetamines ia Negati ve NG/mL cutoff :300 Not Available [facility] ([facility]) [address] [place], [address], 02/11/2025 02:06:57 02/07/2002/11/2025 TOXAS SURE FLEX 19, UR benzodiazepi jazzmine Negati ve Not Available [facility] ([facility]) [address] [place], [address], 02/11/2025 02:06:57 02/07/2002/11/2025 TOXAS SURE FLEX 19, UR diazepam Not Detect ed NG/mg _crea t Not Available [facility] ([facility]) [address] [place], [address], 02/11/2025 02:06:57 02/07/20 25 02/11/2025 TOXAS SURE FLEX 19, UR desmethyldia zepam Not Detect ed NG/mg _crea t Not Available [facility] ([facility]) [address] [place], [address], 02/11/2025 02:06:57 02/07/2002/11/2025 TOXAS SURE FLEX 19, UR oxazepam Not Detect ed NG/mg _crea t Not Available [facility] ([facility]) [address] [place], [address], 02/11/2025 02:06:57 02/07/2002/11/2025 TOXAS SURE FLEX 19, UR temazepam Not Detect ed NG/mg _crea t Expec petty metab olism of benzo diaze pine class drugs : Paren t Drug Detec petty Metab olite s ----- ----- - ----- ----- ----- ----- Diaze deborah: Desme thyld iazep am, Temaz epam, Oxaze deborah Chlor diaze poxid e: Desme thyld iazep am, Oxaze deborah Clora zepat e: Desme thyld iazep am, Oxaze deborah Halaz epam: Desme thyld iazep am, Oxaze deborah Temaz epam: Oxaze deborah Oxaze deborah: None Not Available [facility] ([facility]) [address] [place], [address], 02/11/2025 02:06:57 02/07/20 25 02/11/2025 TOXAS SURE FLEX 19, UR alprazolam Not Detect ed NG/mg _crea t Not Available [facility] ([facility]) [address] [place], [address], 02/11/2025 02:06:57 02/07/2002/11/2025 TOXAS SURE FLEX 19, UR alpha-hydrox yalprazolam Not Detect ed NG/mg _crea t Not Available [facility] ([facility]) [address] [facility], [place], [address], 02/11/2025 02:06:57 02/07/2002/11/2025 TOXAS SURE FLEX 19, UR desalkylflur azepam Not Detect ed NG/mg _crea t Not Available [facility] ([facility]) [address] [place], [address], 02/11/2025 02:06:57 02/07/2002/11/2025 TOXAS SURE FLEX 19, UR lorazepam Not Detect ed NG/mg _crea t Not Available [facility] ([facility]) [address] [facility], [place], [address], 02/11/2025 02:06:57 02/07/2002/11/2025 TOXAS SURE FLEX 19, UR alpha-hydrox ytriazolam Not Detect ed NG/mg _crea t Not Available [facility] ([facility]) [address] [place], [address], 02/11/2025 02:06:57 02/07/2002/11/2025 TOXAS SURE FLEX 19, UR clonazepam Not Detect ed NG/mg _crea t Not Available [facility] ([facility]) [address] [place], [address], 02/11/2025 02:06:57 02/07/2002/11/2025 TOXAS SURE FLEX 19, UR 7-aminoclona zepam Not Detect ed NG/mg _crea t Not Available [facility] ([facility]) [address] [place], [address], 02/11/2025 02:06:57 02/07/20 25 02/11/2025 TOXAS SURE FLEX 19, UR midazolam Not Detect ed NG/mg _crea t Not Available [facility] ([facility]) [address] [place], [address], 02/11/2025 02:06:57 02/07/20 25 02/11/2025 TOXAS SURE FLEX 19, UR alpha-hydrox ymidazolam Not Detect ed NG/mg _crea t Not Available [facility] ([facility]) [address] [place], [address], 02/11/2025 02:06:57 02/07/2002/11/2025 TOXAS SURE FLEX 19, UR flunitrazepa m Not Detect ed NG/mg _crea t Not Available [facility] ([facility]) [address] [place], [address], 02/11/2025 02:06:57 02/07/2002/11/2025 TOXAS SURE FLEX 19, UR desmethylflu nitrazepam Not Detect ed NG/mg _crea t Not Available [facility] ([facility]) [address] [place], [address], 02/11/2025 02:06:57 02/07/20 25 02/11/2025 TOXAS SURE FLEX 19, UR cocaine metabolite ia Negati ve NG/mL cutoff :150 Not Available [facility] ([facility]) [address] [place], [address], 02/11/2025 02:06:57 02/07/2002/11/2025 TOXAS SURE FLEX 19, UR ethanol biomarkers ia Negati ve NG/mL cutoff :500 Not Available [facility] ([facility]) [address] [place] [address], [address], 02/11/2025 02:06:57 02/07/20 25 02/11/2025 TOXAS SURE FLEX 19, UR cannabinoids ia Negati ve NG/mL cutoff :20 Not Available [facility] ([facility]) [address] [place], [address], 02/11/2025 02:06:57 02/07/20 25 02/11/2025 TOXAS SURE FLEX 19, UR 6-acetylmorp griselda ia Negati ve NG/mL cutoff :10 Not Available [facility] ([facility]) [address] [place], [address], 02/11/2025 02:06:57 02/07/20 25 02/11/2025 TOXAS SURE FLEX 19, UR opiate class ia Negati ve NG/mL cutoff :100 Not Available [facility] ([facility]) [address] [place], [address], 02/11/2025 02:06:57 02/07/20 25 02/11/2025 TOXAS SURE FLEX 19, UR oxycodone class ia Negati ve NG/mL cutoff :100 Not Available [facility] ([facility]) [address] [place], [address], 02/11/2025 02:06:57 02/07/20 25 02/11/2025 TOXAS SURE FLEX 19, UR methadone ia Negati ve NG/mL cutoff :100 Not Available [facility] ([facility]) [address] [place], [address], 02/11/2025 02:06:57 02/07/20 25 02/11/2025 TOXAS SURE FLEX 19, UR methadone mtb ia Negati ve NG/mL cutoff :100 Not Available [facility] ([facility]) [address] [place], [address], 02/11/2025 02:06:57 02/07/20 25 02/11/2025 TOXAS SURE FLEX 19, UR buprenorphin e ia Negati ve NG/mL cutoff :5.0 Not Available [facility] ([facility]) [address] [facility] [place], [address], 02/11/2025 02:06:57 02/07/20 25 02/11/2025 TOXAS SURE FLEX 19, UR fentanyl ia Negati ve NG/mL cutoff :2.0 Not Available [facility] ([facility]) [address] [place], [address], 02/11/2025 02:06:57 02/07/2002/11/2025 TOXAS SURE FLEX 19, UR tapentadol ia Negati ve NG/mL cutoff :200 Not Available [facility] ([facility]) [address] [place], [address], 02/11/2025 02:06:57 02/07/2002/11/2025 TOXAS SURE FLEX 19, UR propoxyphene ia Negati ve NG/mL cutoff :300 Not Available [facility] ([facility]) [address] [place], [address], 02/11/2025 02:06:57 02/07/2002/11/2025 TOXAS SURE FLEX 19, UR tramadol ia Negati ve NG/mL cutoff :200 Not Available [facility] ([facility]) [address] [place], [address], 02/11/2025 02:06:57 02/07/2002/11/2025 TOXAS SURE FLEX 19, UR methylphenid ate ia COMMEN T NG/mL cutoff :100 Furth er testi ng indic ated Not Available [facility] ([facility]) [address] [place], [address], 02/11/2025 02:06:57 02/07/20 25 02/11/2025 TOXAS SURE FLEX 19, UR barbiturates ia Negati ve NG/mL cutoff :200 Not Available [facility] ([facility]) [address] [place], [address], 02/11/2025 02:06:57 02/07/20 25 02/11/2025 TOXAS SURE FLEX 19, UR phencyclidin e ia Negati ve NG/mL cutoff :25 Not Available [facility] ([facility]) [address] [place], [address], 02/11/2025 02:06:57 02/07/20 25 02/11/2025 TOXAS SURE FLEX 19, UR gabapentin ia Negati ve ug/mL cutoff :1.0 Not Available [facility] ([facility]) [address] [place], [address], 02/11/2025 02:06:57 02/07/2002/11/2025 TOXAS SURE FLEX 19, UR anticonvulsa nts +POSIT TOY+ Not Available [facility] ([facility]) [address] [place], [address], 02/11/2025 02:06:57 02/07/20 25 02/11/2025 TOXAS SURE FLEX 19, UR pregabalin PRESEN T Not Available [facility] ([facility]) [address] [place], [address], 02/11/2025 02:06:57 02/07/20 25 02/11/2025 TOXAS SURE FLEX 19, UR carisoprodol ia Negati ve NG/mL cutoff :100 Not Available [facility] ([facility]) [address] [place], [address], 02/11/2025 02:06:57 02/07/2002/11/2025 METHY LPHEN IDATE , MS, UR RFX sympathomime tics +POSIT TOY+ Not Available [facility] ([facility]) [address] [place] [address], [address], 02/11/2025 02:07:02 02/07/20 25 02/11/2025 METHY LPHEN IDATE , MS, UR RFX methylphenid ate PRESEN T Not Available [facility] ([facility]) [address] [facility], [place], [address], 02/11/2025 02:07:02 02/07/2002/11/2025 METHY LPHEN IDATE , MS, UR RFX ritalinic acid PRESEN T Not Available [facility] ([facility]) [address] [facility], [place], [address], 02/11/2025 02:07:02 12/12/19 25 12/11/2024 CT, angio gram, abdom en + pelvi s + lower extre mity, w/wo contr ast No observ ation record ed. [email or web address] [facility] [address], [place], [address], 12/12/2024 08:49:47 12/16/19 25 12/15/2024 CT, angio gram, lower extre mity, w/ contr ast No observ ation record ed. [email or web address] [facility] [address], [place], [address], 12/17/2024 13:52:56 01/04/20 25 01/02/2025 US, doppl er, venou s No observ ation record ed. [email or web address] [facility] [address] [facility] [address], [place], [address], 01/03/2025 10:21:21 Result Notes None recorded. Problems Name Problem SNOMED Code Status Onset Date Resolution Date Notes Provider Name and Address Organization Details Recorded Time Attention deficit hyperactivity disorder 437993078 Active 2023 ELIN Hoffmann [address] [place] [address], [address] 8, [employer] 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 5 14:18:14 Nicotine dependence 80676053 Active 2023 ELIN Hoffmann [address] [place] [address], [address] 8, [employer] 4 11:11:11 Depressive disorder 11037012 Active 2023 ELIN Hoffmann [address] [place] [address], 125[address] 8, [place] [employer] 4 11:11:07 Ulcer of lower extremity 24602537 Active 2024 ELIN Hoffmann [address] [place] [address], 874[address]751 8, [employer] 5 10:00:05 Mucous membrane dryness 092678359 Active 2024 Raphael Jeffers MD [address] [place] [address], [address] 8, [employer] 5 10:06:29 Pyoderma gangrenosum 46686276 Active 2024 ELIN Hoffmann [address] [place] [address], 80583[address]463 8, [employer] 5 14:17:51 Mild depression 950682050 Active 2024 ELIN Hoffmann [address] [place] [address], 209[address] 8, [employer] 5 14:46:11 Vitamin D deficiency 33338612 Active 2024 ELIN Hoffmann [address] [place] [address], 765[address]261 8, [employer] 5 14:46:17 Problem Notes None recorded. Medical Equipment None Reported. Allergies Allergen ID Allergen Name Allergen Category Reaction Reaction Severity Criticality Documentation Date Start Date Code Code System Note Provider Name and Address Organization Details Recorded Time 08759 Product containin g penicilli n (product) medicatio n other Not available Not available 03/07/2024 57030 8001 SNOMED Angella Vice null, [employer] 4 14:09:27 65024 Substance with sulfonami de structure and antibacte rial mechanism of action (substanc e) medicatio n other Not available Not available 03/07/2024 40743 8003 SNOMED Angella Vice do, [place] - [employer]. 14:09:27 40665 penicilla mine medicatio n Not available Not available Not available 03/03/2025 7975 RxNorm Not Available jose l - [employer] - prod 17:53:54 61483 penicilli n G Not available anaphylax is Not available [facility] 03/03/20252022 7980 RxNorm Not Available jose l - External Data Service - prod 17:59:12 Medications Name [...] Not Available Vitals Date Recorded Body height Provider Name an d Address Organization Details Last Updated DateTime 12/20/2024 198.12 cm [facility] [employer] [facility] [employer] 12/20/2024 09:43:47 Date Recorded Body height Body mass index (BMI) Body weight Oxygen saturation Heart rate Body temperature Systolic And Diastolic Provider Name and Address Organization Details Last Updated DateTime 198.12 cm 36.7 kg/m2 334783. 37 g 97 % 70 /min 98 [degF] 130/84 mm[Hg] AngellaGoombal Jesus Manuel [employer] 14:03:55 Date Recorded Body weight Body mass index (BMI) Body height Oxygen saturation Heart rate Systolic And Diastolic Systolic And Diastolic Systolic And Diastolic Provider Name and Address Organization Details Last Updated DateTime 290453. 45 g 35.6 kg/m2 198.12 cm 95 % 80 /min 144/72 mm[Hg] 135/74 mm[Hg] 130/82 mm[Hg] Angella Baltazar [employer] 14:15:10 Social History Question Answer Notes LastModified by Organizat ion Details LastModified Time Tobacco Smoking Status Current Every Day Smoker Angella Baltazar ernestina, [employer] 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 [employer] Information not available [...] Or The Highest Degree You Have Received? [id number] Information not available 03/07/2024 Who Is Your [...] Do You Have A Medical Power Of Feed Research Aide? No Information not available 03/07/2024 What Was [...] Functional Status Question Answer Note LastModified by [employer] Details LastModified Time How many times [...] anxious, or unable to sleep at night)? [id number] Information not available 02/06/2025 Do you have [...] ent. N Hypothyroidism N Lung Disease N Dermatologic Disorders N COPD N Depression N Developmental or Behavioral Disorders N Defects or Inherited Disease N Breast Problem N Difficulty Swallowing N [...] Psychiatric/Mental Health Condition N Organ Transplant N Fibromyalgia N Dialysis N Schizophrenia N Headaches N Kidney Disease [...] Recorded Time MMR 07/06/1995 completed Not Available [facility] 02/06/2025 14:00:13 Tdap 01/04/2018 completed Not Available [facility] 02/06/2025 14:00:13 COVID-19 vaccine, vector-nr, rS-Ad26, PF, 0.5 mL 09/18/2020 completed Not Available [facility] 14:00:13 Past Encounters Encounter ID Performer Location Encounter Start Date Encounter Closed Date Diagnosis/Indication Diagnosis SNOMED-CT Code Diagnosis ICD10 Code Diagnosis IMO Codes Diagnosis Note [id number] ELIN Hoffmann [address] [address] 03/07/2024 14:01:16 03/07/2024 14:42:29 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 5948889299 11506 Z79.899 Attention deficit hyperactivity disorder 012103480 F90.[address] Preston todayContr olled substances agreement signed today 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 biopsy next week Body mass index 30+ - obesity 166729787 Z68.35 Nicotine dependence 5629 4008 F17.200 Depressive disorder 3548 9007 F32.A [id number] ELIN Hoffmann [address] [address] 12/20/2024 09:23:23 12/20/2024 09:53:48 Ulcer of lower extremity 22892158 L97.[id number] Jeffers sent an additional #12 oxycodone and will f/u next week if not improvingC TA pending [id number] ELIN Hoffmann [address] [address] 02/06/2025 13:38:45 02/06/2025 17:45:10 Long-term current use of drug therapy 886740464 Z79.899 79659299 Pyoderma gangrenosum 745 16858 L88 280 Referral to [facility] burn unit 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 94580200 Attention deficit hyperactivity disorder 883959757 F90.9 Trial Adderall versus Ritalin Health Concerns Section Related Observation LastModified by Organization Detai ls LastModified Time None Recorded Concern Status LastModified by Organization Details LastModified Time None Recorded Advance Directives Directive N: Payers Insurance Date Sequence Insurance Name Policy Number Policy Ellison Covered Member ID Ellison Member ID Guarantor Name 02/03/2025 1 [facility] [id number] Neil Hankins [id number] Neil Hnakins Notes Date Note Type Note Provider Name and Address Organization Details Recorded Time 03/07/2024 text/html Patient presents to establish care. History of ADHD. Does well on ritalin BID, but stopped taking it for several months because over the summer he had some non healing cystic lesions on his legs and was evaluated for autoimmune disorders. Testing was positive for Sjogren's and he was referred to rheumatology. Has undergone significant testing to confirm the diagnosis before treatment. ELIN Hoffmann [address] [place] [address], [phone], [employer] 03/08/2024 11:11:16 12/20/2024 text/html Patient follows up via telehealth today for ulcer of RLE. Has been dealing with ulcer secondary to Sjogrens for several months. Has gone to wound management, PT. Last week it became acutely red, swollen, oozing and sore. He was seen in ER. Started on antibiotics and pain medicine. LIVE mildly abnormal and is scheduled for CTA. No osteomyelitis seen on imaging. Labs and blood culture were ok. Needs additional antibiotics and pain meds if possible. ELIN Hoffmann [address] [place], [phone], [employer] 12/20/2024 13:34:36 02/06/2025 text/html ROS as noted in the [...] like to have him referred to the [facility] burn unit, where there is a specialist in the condition. Requests refills on pain meds. Takes very sparingly (#12 filled 12/20) but states that occasionally and quite randomly he has a severe pain in the leg that is unrelated to activity or position or anything else that he can determine, but nothing relieves the pain. ELIN Hoffmann [address] [place] [address], [phone], [facility] [email or web address] 02/06/2025 17:53:16
--- OUTSIDE RECORDS SUMMARY | 2025-04-05 01:19 | XMS_ITS | Encounter Summary ---
Author Organization Healthcare Address [address] [place] [address] Care Team Providers Care Wind Energy Project Manager Name Role Phone Taras Monreal DDS Unavailable [phone] Juan Ochoa Unavailable Unavailable Loulou Coulter Primary Care Provider [phone] Encounter Details Date Type Department Care Team (Late st Contact Info) Description 02/20/2025 Patient Outreach [facility] [address] [place] [address] Tere Brown Social History Tobacco Use Types Packs/Day Years [...] Description 06/26/2025 9:00 AM EDT Office Visit [facility] [address] [place] [address] Soco Hein PA [address] [place] [address] documented as of this encounter [...] documented as of this encounter Care Teams Wind Energy Project Manager Relationship Specialty Start Date End Date Loulou Coulter PA [address] [facility] [place] [address] PCP - General 02/05/25 Taras Monreal DDS [address] [place] [address] Dentist Dentist 11/02/23 Juan Ochoa Dentist 11/02/23 documented as of this encounter
[2025-04-05] MEDS: ONDANSETRON 4MG/2ML VIAL 4 MG IV (01:29)
[2025-04-05] MEDS: ACETAMINOPHEN 500MG TAB 1000 MG PO (01:29)
[2025-04-05] MEDS: CLINDAMYCIN PHOSPHATE/D5W 900 MG/50 ML PIGGYBACK 100 MG IV (01:29)
[2025-04-05] MEDS: KETOROLAC 30MG/ML VIAL 30 MG IV (01:29)
[2025-04-05 01:31] LABS: Alanine Aminotransferase 74 U/L (12-78); Albumin Level 4.8 g/dl (3.5-5.0); Albumin/Globulin Ratio 1.4 (1.1-1.8); Alkaline Phosphatase 125 U/L (38-126); Anion Gap 10.9 mEq/L (5-15); Aspartate Amino Transferase 40 U/L (17-59); Bilirubin,Total 0.7 mg/dl (0.2-1.3); Blood Urea Nitrogen 16 mg/dl (9-20); Calcium 9.3 mg/dl (8.4-10.2); Carbon Dioxide 30 mmol/L (22.0-30.0); Chloride 100 mmol/L (98-107); Creatinine Clearance Estimated 178 mL/min (50-200); Creatinine,Serum 1.10 mg/dl (0.66-1.25); Estimated Glomerular Filt Rate 74 ml/min (>60); GFR (African American) 90 ML/MIN (>60); Globulin 3.4 g/dL (1.3-3.2); Glucose 113 mg/dl (74-100); Potassium 3.9 mmoL/L (3.5-5.1); Sodium 137 mmol/L (136-145); Total Protein,Serum 8.2 g/dl (6.3-8.2)
[2025-04-05 01:36] LABS: C-Reactive Protein 4.8 mg/L (0-4)
[2025-04-05] MEDS: HYDROMORPHONE 2MG/ML SYRINGE 1 MG IV ×2 (01:37→02:19)
[2025-04-05] MEDS: CEFEPIME HCL 2 GM in 0.9 % SODIUM CHLORIDE 100 ML IV (01:48)
[2025-04-05] MEDS: VANCOMYCIN HCL 2,500 MG in 0.9 % SODIUM CHLORIDE 500 ML 250 MG IV (02:17)
[2025-04-05 02:19] LABS: Hematocrit 50.8 % (42.0-52.0); Hemoglobin 17.4 g/dL (14.1-18.0); Immature Granulocytes % 0.5 %; Mean Corpuscular HGB Conc 34.3 g/dL (31.8-35.4); Mean Corpuscular Hemoglobin 33.0 pg (27.0-31.2); Mean Corpuscular Volume 96.4 fl (80-94); Nucleated Red Blood Cells % 0 %; Platelet Count 332 K/mm3 (142-424); Red Blood Count 5.27 M/mm3 (4.60-6.20); Red Cell Distribution Width-SD 45.7 fL; White Blood Count 13.2 K/mm3 (4.8-10.8)
--- NOTE | 2025-04-05 02:19 | PC.NURSE ---
Contacted Lab r/t timing of results. Lab stated they meant to notify ED r/t timing. Notified Provider.
--- NOTE | 2025-04-05 02:31 | PC.NURSE ---
Contacted [facility] regarding a transfer. stated they would call back
[2025-04-05] MEDS: OXYCODONE 5MG IMMEDIATE RELEASE TABLET 5 MG PO (04:30)
[2025-04-05 05:08] VITALS: BP 138/78; PULSE 74; RESP 18; TEMP 36.6; O2SAT 98
--- NOTE | 2025-04-05 10:04 | PC.NURSE ---
matt umanzor, pharmacist from called to verify administration time of abxs for pt
--- NOTE | 2025-04-07 08:25 | PC.NURSE ---
Wound culture results faxed to [facility]
--- NOTE | 2025-04-08 18:02 | PC.NURSE ---
wound culture faxed to [facility]
== END 2025-04-05 05:09 | disposition short-term general hospital (02) ==
PROVIDERS: Emergency Provider Emergency Medicine; PCP Physician Assistant
DX: L88 Pyoderma gangrenosum (principal); L03.115 Cellulitis of right lower limb; D89.9 Disorder involving the immune mechanism, unspecified; E66.01 Morbid (severe) obesity due to excess calories; F17.210 Nicotine dependence, cigarettes, uncomplicated; B96.89 Other specified bacterial agents as the cause of diseases classified elsewhere
CPT/HCPCS: 80053; 85025; 85651; 86140; 87040; 87070; 87077; 87186; 87205; 96365; 96366; 96367; 96375; 96376; 99285; J0692; J0736; J1171; J1200; J1885; J2405; J3373; J7040